=== PATIENT | male | born 1960 | race Caucasian/White ===

== ENCOUNTER 2020-07-14 07:08 | Outpatient (REF) | payer OTHER, SELFPAY ==
[2020-07-14 08:12] LABS: Estimated Average Glucose 123 mg/dL; Hemoglobin A1c % 5.9 %
[2020-07-14 08:17] LABS: Creatinine Urine 42.38 mg/dL; Microalbumin Urine < 5.0 mg/L
[2020-07-14 08:18] LABS: Alanine Aminotransferase 23 U/L (0-40); Albumin Level 4.5 g/dL (3.5-5.0); Alkaline Phosphatase 67 U/L (39-117); Anion Gap 16 (12-20); Aspartate Amino Transferase 21 U/L (5-37); Bilirubin Total 0.9 mg/dL (0.0-1.0); Blood Urea Nitrogen 15 mg/dL (9-16); Calcium 9.4 mg/dL (8.4-10.2); Carbon Dioxide 26 mmol/L (22-29); Chloride 101 mmol/L (96-108); Cholesterol 128 mg/dL; Estimated Glomerular Filt Rate > 60; Glucose Fasting 122 mg/dL (60-99); HDL Cholesterol 46 mg/dL; LDL Cholesterol Calculated 48 mg/dl; Potassium 4.1 mmol/l (3.3-5.1); Sodium 139 mmol/L (135-145); Total Protein 7.6 g/dL (6.5-8.0); Triglycerides 172 mg/dL
[2020-07-14 08:37] LABS: TSH reflex Free T4 1.74 mIU/mL (0.32-4.0)
== END 2020-07-14 07:09 | disposition home or self-care (01) ==
LOC: HO.LAB 07:08
PROVIDERS: PCP Family Medicine; Visit Provider Family Medicine
DX: Z00.00 Encounter for general adult medical examination without abnormal findings (principal); E11.9 Type 2 diabetes mellitus without complications; I10 Essential (primary) hypertension
CPT/HCPCS: 36415; 80053; 80061; 82043; 83036; 84443

== ENCOUNTER 2020-10-18 18:38 | Outpatient (REF) | payer OTHER, SELFPAY ==
[2020-10-18 19:07] LABS: Creatinine Urine 86.04 mg/dL; Microalbumin Urine < 5.0 mg/L
== END 2020-10-18 18:39 | disposition home or self-care (01) ==
LOC: HO.LNP 18:38
PROVIDERS: Visit Provider Family Medicine
DX: I10 Essential (primary) hypertension (principal); E11.9 Type 2 diabetes mellitus without complications
CPT/HCPCS: 82043

== ENCOUNTER 2021-05-20 07:43 | Outpatient (REF) | payer OTHER, SELFPAY ==
[2021-05-20 11:15] LABS: Estimated Average Glucose 114 mg/dL; Hemoglobin A1c % 5.6 %
[2021-05-20 11:41] LABS: Cholesterol 121 mg/dL; HDL Cholesterol 49 mg/dL; LDL Cholesterol Calculated 54 mg/dl; Triglycerides 90 mg/dL
[2021-05-20 12:03] LABS: Prostate Specific Antigen Scr 1.64 ng/mL (<0.05-4.0)
== END 2021-05-20 07:44 | disposition home or self-care (01) ==
LOC: HO.WFDLDS 07:43
PROVIDERS: Visit Provider Family Medicine
DX: Z00.00 Encounter for general adult medical examination without abnormal findings (principal); Z12.5 Encounter for screening for malignant neoplasm of prostate; R73.01 Impaired fasting glucose
CPT/HCPCS: 36415; 80061; 83036; 84153

== ENCOUNTER 2021-05-23 08:13 | Outpatient (REF) | payer OTHER, SELFPAY ==
[2021-05-23 12:11] LABS: Creatinine Urine 62.92 mg/dL; Microalbumin Urine < 5.0 mg/L
== END 2021-05-23 08:14 | disposition home or self-care (01) ==
LOC: HO.WFDLDS 08:13
PROVIDERS: Visit Provider Family Medicine
DX: I10 Essential (primary) hypertension (principal)
CPT/HCPCS: 82043

== ENCOUNTER 2021-11-05 07:44 | Outpatient (REF) | payer OTHER, SELFPAY ==
[2021-11-05 08:13] LABS: MANUAL DIFF FLAG NO
[2021-11-05 09:22] LABS: Appearance Urine CLEAR; Color Urine STRAW; Glucose Urine UA NEG (NEG); Leukocyte Esterase Urine NEG (NEG); Nitrite Urine NEG (NEG); PH 6.5 (5.0-8.0); Urine Blood NEG (NEG); Urine Ketones NEG (NEG); Urine Protein NEG (NEG-TRACE)
[2021-11-05 09:23] LABS: Basophils Percent Auto 0.5 % (0-2); Eosinophils Absolute Auto 0.2 X10*3/uL (0.0-0.4); Eosinophils Percent Auto 3.5 % (0-4); Hematocrit 41.3 % (42.0-52.0); Hemoglobin 14.4 g/dl (14.0-18.0); Imm Gran Abs Auto 0.02 X10*3/uL (0.00-0.03); Imm Gran Pct Auto 0.3 % (0.0-0.4); Lymphocytes Absolute Auto 2.1 X10*3/uL (1.2-4.9); Lymphocytes Percent Auto 32.2 % (20-40); Mean Corpuscular HGB Conc 34.9 g/dl (31.0-36.0); Mean Corpuscular Hemoglobin 30.7 pg (27.0-33.0); Mean Corpuscular Volume 88.1 fL (80.0-98.0); Mean Platelet Volume 11.4 fL (9.4-12.4); Monocytes Absolute Auto 0.8 X10*3/uL (0.1-1.2); Monocytes Percent Auto 12.5 % (2-11); Neutrophils Absolute Auto 3.4 x10*3/uL (2.0-8.3); Platelet Count 192 X10*3/uL (160-400); Red Blood Count 4.69 X10*6/uL (4.60-5.80); Red Cell Distribution Width 12.8 % (11.0-16.0); White Blood Count 6.6 X10*3/uL (4.8-10.8)
[2021-11-05 09:36] LABS: Alanine Aminotransferase 21 U/L (0-40); Albumin Level 4.3 g/dL (3.5-5.0); Alkaline Phosphatase 65 U/L (39-117); Anion Gap 14 (12-20); Aspartate Amino Transferase 21 U/L (5-37); Blood Urea Nitrogen 19 mg/dL (9-16); Calcium 9.6 mg/dL (8.4-10.2); Carbon Dioxide 24 mmol/L (22-29); Chloride 105 mmol/L (96-108); Cholesterol 115 mg/dL; Estimated Glomerular Filt Rate > 60; Glucose Fasting 114 mg/dL (60-99); HDL Cholesterol 45 mg/dL; LDL Cholesterol Calculated 58 mg/dl; Potassium 3.6 mmol/L (3.3-5.1); Sodium 139 mmol/L (135-145); Total Protein 7.2 g/dL (6.5-8.0); Triglycerides 64 mg/dL
[2021-11-05 09:42] LABS: Creatinine Urine 39.34 mg/dL; Microalbumin Urine < 5.0 mg/L
[2021-11-05 10:02] LABS: Prostate Specific Antigen Scr 1.32 ng/mL (<0.05-4.0); TSH reflex Free T4 2.11 uIU/mL (0.32-4.0)
== END 2021-11-05 07:45 | disposition home or self-care (01) ==
LOC: HO.LAB 07:44
PROVIDERS: PCP Family Medicine; Visit Provider Family Medicine
DX: Z00.00 Encounter for general adult medical examination without abnormal findings (principal); Z12.5 Encounter for screening for malignant neoplasm of prostate; I10 Essential (primary) hypertension
CPT/HCPCS: 36415; 80053; 80061; 81003; 82043; 84153; 84443; 85025

== ENCOUNTER 2022-01-28 07:47 | Emergency (ER) | payer OTHER, SELFPAY ==
--- NOTE | ~2022-01-28 | CT_ITS ---
EXAMINATION: CT BRAIN AND CT CERVICAL SPINE WITHOUT CONTRAST. CLINICAL INFORMATION: Status post fall. COMPARISON: None TECHNIQUE: 5 mm thin axial and reformatted 2 mm thin sagittal and coronal images of brain were obtained without contrast. Subsequently axial 3 mm thin and reformatted 2 mm thin sagittal and coronal images of cervical spine were obtained. [facility] 1526 FINDINGS: Brain: There is no acute infarct axial, extra-axial bleed, masses or midline shift. There is no acute infarction in evolution. The lateral ventricles are symmetrical in size and configuration. The [place] to white matter difference is maintained normal. There is anterior midline falx semilunar are calcification measuring 1.41 x 0.56 cm likely calcification or calcified meningioma. Bone windows reveal no calvarial abnormality. There is minimal left frontal scalp soft tissue swelling without calvarial fracture. Cervical spine: There is mild straightening straightening of cervical lordosis. The vertebral heights and alignment is normal. There is loss of C4-C5, C5-C6 and and C6-C7 disc heights with moderate ventral and mild posterior cervical spondylosis. The craniovertebral junction and the C1-C2 alignment is normal. There is bilateral facet joint arthropathy C3-C4 through C7-T1 disc levels. The prevertebral and paravertebral soft tissues are normal. The area is widely patent. The lung apices are clear. The thyroid lobes are symmetrical and normal. No abnormal size neck lymph nodes seen. CT/CT head/brain wo con IMPRESSION: No acute intracranial process seen. Minimal left frontal scalp soft tissue swelling but no calvarial fracture.
--- NOTE | ~2022-01-28 | XR_ITS ---
EXAMINATION: XR hand wrist LT CLINICAL INFORMATION: Reason for Exam bruising, deformity COMPARISON: Left wrist radiographs 11/22/2011, left hand radiographs 08/11/2007 TECHNIQUE: 3 views left hand FINDINGS: Comminuted minimally medially and dorsally displaced fracture at the base of the fifth proximal phalanx. No appreciable intra-articular extension at the MCP joint. No additional fracture or dislocation. At the wrist, there is abundant chondrocalcinosis and soft tissue swelling at the dorsal ulnar wrist along with widening of the scapholunate interval on cystic/erosive changes in the distal radius and capitate as well as radiocarpal joint space narrowing and proximal migration of the capitate compatible with a SLAC wrist. Wrist is held in ulnar deviation. Joint spaces throughout the hand are maintained. XR/XR hand wrist LT IMPRESSION: 1. Minimally displaced extra-articular fracture of the base of the fifth proximal phalanx. No other acute fracture. 2. 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
--- NOTE | ~2022-01-28 | XR_ITS ---
EXAMINATION: XR CHEST CLINICAL INFORMATION: Cough. COMPARISON: Chest done on 11/20/2014. TECHNIQUE: Frontal view of the chest was obtained. FINDINGS: No significant abnormality is noted involving the heart, lungs, mediastinum, bony thorax or soft tissues. XR/XR chest 1V IMPRESSION: Unremarkable examination.
--- NOTE | ~2022-01-28 | CT_ITS ---
EXAMINATION: CT BRAIN AND CT CERVICAL SPINE WITHOUT CONTRAST. CLINICAL INFORMATION: Status post fall. COMPARISON: None TECHNIQUE: 5 mm thin axial and reformatted 2 mm thin sagittal and coronal images of brain were obtained without contrast. Subsequently axial 3 mm thin and reformatted 2 mm thin sagittal and coronal images of cervical spine were obtained. [facility] 1526 FINDINGS: Brain: There is no acute infarct axial, extra-axial bleed, masses or midline shift. There is no acute infarction in evolution. The lateral ventricles are symmetrical in size and configuration. The bl[place] to white matter difference is maintained normal. There is anterior midline falx semilunar are calcification measuring 1.41 x 0.56 cm likely calcification or calcified meningioma. Bone windows reveal no calvarial abnormality. There is minimal left frontal scalp soft tissue swelling without calvarial fracture. Cervical spine: There is mild straightening straightening of cervical lordosis. The vertebral heights and alignment is normal. There is loss of C4-C5, C5-C6 and and C6-C7 disc heights with moderate ventral and mild posterior cervical spondylosis. The craniovertebral junction and the C1-C2 alignment is normal. There is bilateral facet joint arthropathy C3-C4 through C7-T1 disc levels. The prevertebral and paravertebral soft tissues are normal. The area is widely patent. The lung apices are clear. The thyroid lobes are symmetrical and normal. No abnormal size neck lymph nodes seen. CT/CT cervical spine wo con IMPRESSION: No acute intracranial process seen. Minimal left frontal scalp soft tissue swelling but no calvarial fracture.
--- NOTE | 2022-01-28 07:51 | ECG_ITS ---
Test Reason : FALL Blood Pressure : / mmHG Vent. Rate : 078 BPM Atrial Rate : 078 BPM P-R Int : 164 ms QRS Dur : 102 ms QT Int : 382 ms P-R-T Axes : 077 003 017 degrees QTc Int : 435 ms Normal sinus rhythm Normal ECG When compared with ECG of 20-NOV-2014 09:37, QRS axis Shifted left T wave inversion less evident in Inferior leads Referred By: Princess Mckeon Electronically Signed By:MAYTE DAY
[2022-01-28 08:09] VITALS: BP 135/70; BP 158/82; PULSE 85; PULSE 91; RESP 18; TEMP 36.9; O2SAT 96; O2SAT 99; BMI 28.8
--- NOTE | 2022-01-28 08:29 | ED.FALL ---
HPI - Fall General Chief Complaint: Fall Stated Complaint: Fall Time Seen by Provider: 01/28/22 07:50 Source: patient Mode of arrival: ambulatory History of Present Illness HPI Narrative: 62-year-old male who is brought in by EMS after he tripped on the curb and fell without loss of consciousness and is not currently on any blood thinners. Related Data Previous Rx's Medication Instructions Recorded FreeStyle Lancets 28 gauge 28 gauge topical TID #100 caps 08/26/20 (lancets) blood-glucose meter (FreeStyle #1 ea 02/10/21 Lite Meter kit) atenolol 50 mg tablet 50 mg PO DAILY #90 tabs 04/25/21 blood sugar diagnostic (FreeStyle See Rx Instructions .Route BID for 05/11/21 Lite Strips) diabetes mellitus #200 strips metformin 500 mg tablet,extended 500 mg PO DAILY #90 tabs 06/23/21 release 24 hr diphenhydramine HCl 25 mg tablet 25 mg PO BEDTIME 3 days #3 tabs 12/01/21 (Benadryl Allergy) furosemide 20 mg tablet (Lasix) 20 mg PO QAM 3 days #3 tabs 12/01/21 hydrochlorothiazide 50 mg tablet 50 mg PO DAILY #90 tabs 12/14/21 ibuprofen 800 mg tablet 800 mg PO TID PRN pain 30 days #90 12/19/21 tabs atorvastatin 10 mg tablet 10 mg PO DAILY #90 tabs 12/28/21 valsartan 160 mg tablet 160 mg PO DAILY #90 tabs 12/28/21 Allergies Allergy/AdvReac Type Severity Reaction Status Date / Time No Known Allergies Allergy Verified 11/18/21 14:57 [No Known Allergies*] Review of Systems Review of Systems: Pertinent positives and negatives as stated in HPI 10 point review of systems is otherwise negative. [facility]LY [facility], [facility] Past Medical History Source: nursing notes reviewed Medical History Moderate intellectual disabilities Surgical History History of tooth extraction Family History Family History Father HTN (hypertension) Hyperlipidemia Lymphoma Mother HTN (hypertension) Cancer Brother No problems noted. Brother No problems noted. Brother No problems noted. Brother No problems noted. Brother No problems noted. Sister No problems noted. Sister No problems noted. Social History Social History Housing: House Alcohol intake: never Patient Tobacco Use Status: Never used Tobacco e-Cigarette/Vaping Use: Never Used Second Hand Smoke Exposure: No Advance Directives: Yes Advance Directives Information Provided: Yes Advance Directives on File: No service: No Current occupational status: disabled Current occupational exposures/hazards: No Physical Exam Vital Signs: Vital Signs: Last Vital Signs Temp 98.4 F 01/28/22 08:09 Pulse 83 01/28/22 11:36 Resp 16 01/28/22 11:36 BP 145/72 H 01/28/22 11:36 Pulse Ox 95 01/28/22 11:36 O2 Del Method 01/28/22 11:36 BMI result Body Mass Index 28.8 VITAL SIGNS: Reviewed. GENERAL: Well developed, well nourished, in no acute distress. HEAD: Normocephalic/ 3 cm linear laceration that is hemostatic to the left forehead EYES: PERRLA, EOMI EARS: Ext canals without abnormality OROPHARYNX: no oral lesions noted, posterior pharynx clear LUNGS: Normal breath sounds. No adventitious sounds or accessory muscle use. SpO2<95> CARDIOVASCULAR: Regular rate and rhythm without noted murmurs, no JVD or lower extremity edema. ABDOMEN: Soft, non-tender, non-distended with bowel sounds. MUSCULOSKELETAL: No tenderness, deformities, or effusions noted on gross inspection. EXTREMITIES: No cyanosis, clubbing or edema. SKIN: Inspection of the skin reveals no rashes NEUROLOGIC: Alert and oriented x 4. Strength and sensation to light touch were grossly intact x 4. Course Course Course Narrative: 62-year-old male with history and clinical presentation consistent with mechanical fall and on review of all investigations there are no acute findings to suggest alternate etiologies. Review of imaging is negative for intracranial or cervical pathology. Patient tolerated repair of the laceration to the left forehead with dissolvable suture material. Procedures Laceration Laceration 1: Site: scalp Side (If applicable): left Size (cm): 3 Description: linear Depth: simple, single layer Local Anesthetic: lidocaine 1% Amount of anesthesia used (mL): 2 Pre-repair: wound explored, irrigated extensively and deep structures intact Skin layer closed with: vicryl ( Dissolve ) Size (cm): 5-0 Number of sutures: 5 Technique: simple, interrupted MDM - Fall Lab Data Result diagrams: 01/28/22 09:20 01/28/22 09:20 Labs: Lab Results 01/28/22 01/28/22 01/28/22 Range/Units 09:20 09:20 11:40 WBC 11.0 H (4.8-10.8) X10*3/uL RBC 4.67 (4.60-5.80) X10*6/uL Hgb 14.7 (14.0-18.0) g/dl Hct 40.8 L (42.0-52.0) % MCV 87.4 (80.0-98.0) fL MCH 31.5 (27.0-33.0) pg MCHC 36.0 (31.0-36.0) g/dl RDW 12.8 (11.0-16.0) % Plt Count 164 (160-400) X10*3/uL MPV 10.8 (9.4-12.4) fL Immature Gran % (Auto) 0.5 H (0.0-0.4) % Neut % (Auto) 83.4 H (45-73) % Lymph % (Auto) 8.6 L (20-40) % [place] % (Auto) 6.7 (2-11) % Eos % (Auto) 0.5 (0-4) % Baso % (Auto) 0.3 (0-2) % Lymph # (Auto) 0.9 L (1.2-4.9) X10*3/uL [place] # (Auto) 0.7 (0.1-1.2) X10*3/uL Eos # (Auto) 0.1 (0.0-0.4) X10*3/uL Baso # (Auto) 0.0 (0.0-0.2) X10*3/uL Abs Immat Gran (auto) 0.05 H (0.00-0.03) X10*3/uL Absolute Neuts (auto) 9.2 H (2.0-8.3) x10*3/uL Absolute Nucleated RBC 0.000 (0.0-0.012) X10*3/uL Nucleated RBC % (auto) 0.0 (0.0-0.2) /100WBC Sodium 140 (135-145) mmol/L Potassium 3.5 (3.3-5.1) mmol/L Chloride 105 (96-108) mmol/L Carbon Dioxide 21 L (22-29) mmol/L Anion Gap 18 (12-20) BUN 25 H (9-16) mg/dL Creatinine 1.00 (0.5-1.4) mg/dL Estim Creat Clear Calc 101.4 Estimated GFR > 60 Random Glucose 124 H (60-115) mg/dL Calcium 9.6 (8.4-10.2) mg/dL Total Bilirubin 0.7 (0.0-1.0) mg/dL AST 26 (5-37) U/L ALT 23 (0-40) U/L Alkaline Phosphatase 66 (39-117) U/L Total Protein 7.6 (6.5-8.0) g/dL Albumin 4.6 (3.5-5.0) g/dL Urine Color YELLOW Urine Appearance HAZY Urine pH 6.5 (5.0-8.0) Ur Specific [place] 1.010 (1.005-1.025) Urine Protein NEG (NEG-TRACE) MG/DL Urine Glucose (UA) NEG (NEG) MG/DL Urine Ketones NEG (NEG) MG/DL Urine Blood NEG (NEG) Urine Nitrite NEG (NEG) Ur Leukocyte Esterase NEG (NEG) ECG Data Attestation: I personally reviewed and interpreted this ECG as follows: Prior ECG tracings: available for review Interpretation: NSR, HR-78, no STEMI, MO /QRS /QTC are within normal limits. Discharge Plan Discharge Clinical Impression: Accident due to mechanical fall without injury, Laceration of scalp Patient Disposition: Home, Self-Care Instructions: Laceration (ED), Fall Prevention for Older Adults (ED) Additional Instructions: you may cleanse the wounds with soap and water and keep dry. Apply antibiotic ointment as well. You do not need to return for removal of your stitches as they will dissolve with time. Follow-up with your primary care provider in 1-2 days. Return to the ER for worsening symptoms. Prescriptions: No Action lancets [FreeStyle Lancets] 28 gauge misc 28 gauge topical TID Qty: 100 2RF atenolol 50 mg tablet 50 mg PO DAILY Qty: 90 3RF FreeStyle Lite Strips Strip See Rx Instructions .ROUTE BID Qty: 200 6RF Rx Instructions: glucose monitoring 2 times a day; metformin 500 mg tablet extended release 24 hr 500 mg PO DAILY Qty: 90 3RF hydrochlorothiazide 50 mg tablet 50 mg PO DAILY Qty: 90 1RF ibuprofen 800 mg tablet 800 mg PO TID PRN (Reason: pain) 30 Days Qty: 90 2RF atorvastatin 10 mg tablet 10 mg PO DAILY Qty: 90 0RF valsartan 160 mg tablet 160 mg PO DAILY Qty: 90 0RF (DME) blood-glucose meter [FreeStyle Lite Meter] Kit See Rx Instructions .ROUTE .MEDSUPPLY Qty: 1 0RF Rx Instructions: DX: E11.9, test blood sugar 2 times a day, duration 999 days furosemide [Lasix] 20 mg tablet 20 mg PO QAM 3 Days Qty: 3 0RF diphenhydramine HCl [Benadryl Allergy] 25 mg tablet 25 mg PO BEDTIME 3 Days Qty: 3 0RF Referrals: Jordi Crandall MD [Primary Care Provider] -
[2022-01-28] MEDS: Diphth,Pertus(ACell),Tet Adult 0.5 ML SYRINGE IM (09:10)
[2022-01-28 09:36] LABS: MANUAL DIFF FLAG NO
[2022-01-28 09:40] LABS: Basophils Percent Auto 0.3 % (0-2); Eosinophils Absolute Auto 0.1 X10*3/uL (0.0-0.4); Eosinophils Percent Auto 0.5 % (0-4); Hematocrit 40.8 % (42.0-52.0); Hemoglobin 14.7 g/dl (14.0-18.0); Imm Gran Abs Auto 0.05 X10*3/uL (0.00-0.03); Imm Gran Pct Auto 0.5 % (0.0-0.4); Lymphocytes Absolute Auto 0.9 X10*3/uL (1.2-4.9); Lymphocytes Percent Auto 8.6 % (20-40); Mean Corpuscular Hemoglobin 31.5 pg (27.0-33.0); Mean Corpuscular Volume 87.4 fL (80.0-98.0); Mean Platelet Volume 10.8 fL (9.4-12.4); Monocytes Absolute Auto 0.7 X10*3/uL (0.1-1.2); Monocytes Percent Auto 6.7 % (2-11); Neutrophils Absolute Auto 9.2 x10*3/uL (2.0-8.3); Neutrophils Percent Auto 83.4 % (45-73); Platelet Count 164 X10*3/uL (160-400); Red Blood Count 4.67 X10*6/uL (4.60-5.80); Red Cell Distribution Width 12.8 % (11.0-16.0)
[2022-01-28 10:08] LABS: Alanine Aminotransferase 23 U/L (0-40); Albumin Level 4.6 g/dL (3.5-5.0); Alkaline Phosphatase 66 U/L (39-117); Anion Gap 18 (12-20); Aspartate Amino Transferase 26 U/L (5-37); Bilirubin Total 0.7 mg/dL (0.0-1.0); Blood Urea Nitrogen 25 mg/dL (9-16); Calcium 9.6 mg/dL (8.4-10.2); Carbon Dioxide 21 mmol/L (22-29); Chloride 105 mmol/L (96-108); Creatinine Clr Calc Pharmacy 101.4; Estimated Glomerular Filt Rate > 60; Glucose Random 124 mg/dL (60-115); Potassium 3.5 mmol/L (3.3-5.1); Sodium 140 mmol/L (135-145); Total Protein 7.6 g/dL (6.5-8.0)
[2022-01-28] MEDS: Lidocaine HCl 1 % MPF 5 ML VIAL SUBCUT (11:22)
[2022-01-28 11:36] VITALS: BP 145/72; PULSE 83; RESP 16; O2SAT 95
[2022-01-28 11:53] LABS: Appearance Urine HAZY; Color Urine YELLOW; Glucose Urine UA NEG (NEG); Leukocyte Esterase Urine NEG (NEG); Nitrite Urine NEG (NEG); PH 6.5 (5.0-8.0); Urine Blood NEG (NEG); Urine Ketones NEG (NEG); Urine Protein NEG (NEG-TRACE)
== END 2022-01-28 16:29 | disposition home or self-care (01) ==
PROVIDERS: Emergency Provider Student in an Organized Health Care Education/Training Program; PCP Family Medicine
DX: S62.317A Displaced fracture of base of fifth metacarpal bone, left hand, initial encounter for closed fracture (principal); S01.81XA Laceration without foreign body of other part of head, initial encounter; W10.1XXA Fall (on)(from) sidewalk curb, initial encounter; Y93.01 Activity, walking, marching and hiking; Y92.480 Sidewalk as the place of occurrence of the external cause; Y99.9 Unspecified external cause status; Z79.02 Long term (current) use of antithrombotics/antiplatelets; Z79.84 Long term (current) use of oral hypoglycemic drugs
CPT/HCPCS: 12013; 29125; 36415; 70450; 71045; 72125; 73110; 73130; 80053; 81003; 85025; 90471; 90715; 93005; 99284; 99285

== ENCOUNTER → 2022-02-01 14:16 | Outpatient (BNVA) | payer OTHER, SELFPAY | PROVIDERS: PCP Family Medicine; Visit Provider Physician Assistant | DX: S62.307A Unspecified fracture of fifth metacarpal bone, left hand, initial encounter for closed fracture (principal); S69.92XA Unspecified injury of left wrist, hand and finger(s), initial encounter; W18.30XA Fall on same level, unspecified, initial encounter; Y93.9 Activity, unspecified; Y92.9 Unspecified place or not applicable; Y99.9 Unspecified external cause status | CPT/HCPCS: 29085; 99202 ==

== ENCOUNTER 2022-02-15 13:51 | Outpatient (REF) | payer OTHER, SELFPAY ==
--- NOTE | ~2022-02-15 | XR_ITS ---
EXAMINATION: XR HAND, LEFT CLINICAL INFORMATION: Left hand pain. COMPARISON: 01/28/2022 and 11/22/2011. TECHNIQUE: PA, and oblique views of the left hand. Lateral view was not performed and is not available for review. FINDINGS: There is no significant change in alignment of fracture base of the 5th proximal phalanx. There appears to be minimal periosteal new bone formation with fracture lines still evident. No dislocation is seen. There is mild lateral and dorsal angulation of the major distal fracture fragment. The interphalangeal and metacarpophalangeal joints are maintained. There appears to be an old healed ulnar styloid fracture with some positive ulnar variance. There is soft tissue swelling seen adjacent to the medial aspect of the wrist and ulnar styloid. There is again noted to be a cyst or erosion involving the distal radius. Chondrocalcinosis is noted about the distal radius and ulna including the triangular fibrocartilage. There is a question of cyst or erosion about the radial aspect of the capitate. There is some narrowing and spurring of the triscaphe joint. There is widening of the scapholunate space indicative of ligamentous injury. XR/XR hand LT min 3V IMPRESSION: Healing fracture involving the base of the left 5th proximal phalanx without change in alignment from previous study. Chondrocalcinosis about the wrist. Probable old healed left ulnar styloid fracture with some adjacent soft tissue swelling. Probable mild acquired positive ulnar variance. Erosive changes or cystic changes involving the carpal bones which could be related to erosive arthritides or posttraumatic change. No significant change compared to study of 01/28/2022.
== END 2022-02-15 13:52 | disposition home or self-care (01) ==
LOC: HO.HOSX 13:51
PROVIDERS: Visit Provider Physician Assistant
DX: M79.642 Pain in left hand (principal)
CPT/HCPCS: 73130

== ENCOUNTER 2022-03-24 13:03 | Outpatient (REF) | payer OTHER, SELFPAY ==
--- NOTE | ~2022-03-24 | XR_ITS ---
EXAMINATION: XR HAND, LEFT CLINICAL INFORMATION: Left hand pain. COMPARISON: Most recent left hand radiographs dated 02/15/2022. TECHNIQUE: PA, lateral, and oblique views of the left hand. FINDINGS: Redemonstration of a mildly displaced fracture through the base of the 5th proximal phalanx in unchanged anatomic alignment. Mild interval increase in new bone/callus formation. No new fracture or dislocation. Widening of the scapholunate ligament with proximal migration of the capitate appears unchanged, consistent with SLAC wrist. Radiocarpal joint space narrowing with subchondral cystic change. Radiocarpal chondrocalcinosis. Joint space narrowing with marginal osteophytes at the triscaphe and 1st carpometacarpal joints. XR/XR hand LT min 3V IMPRESSION: 1. Fifth proximal phalangeal fracture in unchanged anatomic alignment with mild new bone/callus formation. 2. Scapholunate joint space widening with proximal migration of the capitate appears unchanged, consistent with SLAC wrist. Associated osteoarthritis at the radiocarpal, triscaphe, and 1st carpometacarpal joints.
== END 2022-03-24 13:04 | disposition home or self-care (01) ==
LOC: HO.HOSX 13:03
PROVIDERS: Visit Provider Physician Assistant
DX: M79.642 Pain in left hand (principal)
CPT/HCPCS: 73130

== ENCOUNTER 2022-05-05 07:54 | Outpatient (REF) | payer OTHER, SELFPAY ==
--- NOTE | ~2022-05-05 | XR_ITS ---
EXAMINATION: XR HAND, LEFT CLINICAL INFORMATION: Left hand pain. COMPARISON: 03/24/2022 and studies dating back to 01/28/2022. TECHNIQUE: PA, lateral, and oblique views of the left hand. FINDINGS: There appears to be some progression in healing of fracture of the base of the left 5th proximal phalanx with the ulnar aspect of the fracture lines not being evident and may be related to some degree of bony union. The radial aspect of the fracture is still visualized without significant callus formation. No acute fracture is identified. There is degenerative spurring with some subchondral cyst formation seen involving the 5th distal interphalangeal joint. There is mild spurring about the 1st carpometacarpal joint. There is degenerative change of the radiocarpal joint with narrowing of the joint space with the scaphoid with some marginal sclerosis and subchondral cyst formation identified. There is also noted to be some soft tissue swelling with calcification about the dorsum of the wrist and ulnar styloid with chondrocalcinosis. There is widening of the scapholunate space consistent with ligamentous injury. There appears to be some proximal migration of the capitate without change. Above finding is consistent with SLAC. XR/XR hand LT min 3V IMPRESSION: Healing fracture base of the 5th proximal phalanx. Other degenerative findings as described above.
== END 2022-05-05 07:55 | disposition home or self-care (01) ==
LOC: HO.HOSX 07:54
PROVIDERS: Visit Provider Physician Assistant
DX: S62.307A Unspecified fracture of fifth metacarpal bone, left hand, initial encounter for closed fracture (principal)
CPT/HCPCS: 73130; 99212

== ENCOUNTER 2023-02-19 08:24 | Outpatient (AMB) | payer OTHER, SELFPAY ==
--- NOTE | 2023-02-19 08:28 | MHC.PC.OV ---
Vital Signs 02/19/23 08:33 Height 6 ft 3 in Weight 232 lb 8 oz BMI 29.1 BP 122/63 Blood Pressure Location Rt brachial Position Sitting Pulse 59 Pulse Source Pulse Oximeter Pulse Oximetry (%) 97 Intake Visit Reasons: f/u diabetes and hypertension Intake Note: Patient is here to follow up on idabetes and hypertension. Allergies No Known Allergies [No Known Allergies*] Allergy (Verified 11/24/22 08:42) Tobacco use date assessed: 02/19/23 Dental Screening Dental Screen Date: 02/19/23 Did you have a dental visit in the last 12 months?: No Did you have a dental problem in the last 6 months where you did not have access to dental care?: No Was dental information given to patient?: Patient declined HPI f/u diabetes and hypertension HPI Details 63 y/o male presents to f/u diabetes and hypertension. Blood pressure today is 122/63. He is on hydrochlorothiazide 50mg, atenolol 50mg and valsartan 160mg daily. Last A1c 11/24/22 6.0%. A1c today 02/19/23 is 5.8%. He is on metformin 500mg daily. They report they had a cologuard test just last year. They report he sees his eye doctor once a year. FORMERLY [facility] Medical History Moderate intellectual disabilities Surgical History History of tooth extraction Family History Father HTN (hypertension) Hyperlipidemia Lymphoma Mother HTN (hypertension) Cancer Brother No problems noted. Brother No problems noted. Brother No problems noted. Brother No problems noted. Brother No problems noted. Sister No problems noted. Sister No problems noted. Social History Housing: House Alcohol intake: never Patient Tobacco Use Status: Never used Tobacco e-Cigarette/Vaping Use: Never Used Second Hand Smoke Exposure: No service: No Current occupational status: disabled Current occupational exposures/hazards: No Questionnaire Thrive Questionnaire Date Thrive assessed: 05/05/22 SARAI-7 AMB Questionnaire SARAI-7 Date SARAI - 7 assessed: 11/04/21 Source: Developed by Drs. Aniket Liu, Lay Owens, Wilfrido Garza and colleagues, with an educational martín from [employer]. Review of Systems Const Denies chills, Denies fatigue, Denies fever(s), Denies headache(s) and Denies weakness ENT Denies dizziness and Denies headache(s) Card Denies chest pain, Denies lightheadedness, Denies dyspnea and Denies other (Palpitations) Resp Denies cough, Denies dyspnea, Denies wheezing and Denies other ( shortness of breath) Musc Denies numbness and Denies tingling Neuro Denies dizziness, Denies headache(s), Denies numbness, Denies tingling, Denies paresthesias and Denies weakness Psych Denies anxiety and Denies depression Endo Denies fatigue Aller/Immun Denies wheezing Physical exam (Primary Care) Vital Signs: Last Vital Signs Pulse 59 02/19/23 08:33 BP 122/63 02/19/23 08:33 Pulse Ox 97 02/19/23 08:33 BMI result Body Mass Index 29.1 Tobacco/Smoking Status: Tobacco use Status Tobacco use date assessed 02/19/23 02/19/23 08:42 Patient Tobacco Use Status Never used Tobacco 02/19/23 08:28 e-Cigarette/Vaping Use Never Used 02/19/23 08:28 Thrive Assessment: Date of Thrive Assessment Date Thrive assessed 05/05/22 02/19/23 08:28 Const General: no acute distress and well developed Nutritional Appearance: well nourished Orientation/consciousness: [facility]: Yes normocephalic and Yes atraumatic Eyes General: appearance normal, both eyes and all related structures Pupils: Equal, round and reactive pupils present EOM: EOMs intact bilaterally Resp Effort & Inspection: normal respiratory effort Auscultation: clear to auscultation bilaterally Cardio Rate: regular rate Rhythm: regular rhythm Heart sounds: S1 normal heart sound present, S2 normal heart sound present, no gallops, no murmurs and no rubs Neuro General: patient oriented x3 and gait normal Cranial nerves: Yes Equal, round and reactive pupils present Psych Affect: normal affect Results AMB Hemoglobin A1c AMB Hemoglobin A1c 5.8 % Last Edit by Marian Leger YANA on 02/19/23 08:45 AMB Urinalysis Dipstick UR Leukocytes Negative Last Edit by Marian Leger CMA on 02/19/23 09:04 UR Nitrite Negative Last Edit by Marian Leger, YANA on 02/19/23 09:04 UR Urobilinogen Normal Last Edit by Marian Leger, YANA on 02/19/23 09:04 UR Protein Negative Last Edit by Marian Leger, YANA on 02/19/23 09:04 UR Ph 6.5 Last Edit by Marian Leger, YANA on 02/19/23 09:04 UR Blood Negative Last Edit by Marian Leger, YANA on 02/19/23 09:04 UR Specific [place] 1.015 Last Edit by Marian Leger, YANA on 02/19/23 09:04 UR Ketone Negative Last Edit by Marian Leger, YANA on 02/19/23 09:04 UR Bilirubin Negative Last Edit by Marian Leger CMA on 02/19/23 09:04 UR Glucose Negative Last Edit by Marian Leger, YANA on 02/19/23 09:04 Results Reviewed Results Reviewed: Laboratory Last Values Hgb A1c (Clinic) 5.8 % (4.0-6.0) 02/19/23 08:45 Urine pH (Clinic) 6.5 02/19/23 09:02 Specific [place] (Clinic) 1.015 02/19/23 09:02 Ur Protein (Clinic) Negative 02/19/23 09:02 Ur Ketones (Clinic) Negative 02/19/23 09:02 Urine Blood (Clinic) Negative 02/19/23 09:02 Urine Nitrite Negative 02/19/23 09:02 Urine Bilirubin (Clinic) Negative 02/19/23 09:02 Urobilinogen (Clinic) Normal 02/19/23 09:02 Leukocyte Esterase (Clinic) Negative 02/19/23 09:02 Urine Glucose (Clinic) Negative 02/19/23 09:02 Assessment and Plan Assessment & Plan (1) Diabetes type 2, controlled: Code(s): E11.9 - Type 2 diabetes mellitus without complications Plan: A1c 5.8%. Goal is < 7.0%. 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 (2) Essential (primary) hypertension: Code(s): I10 - Essential (primary) hypertension Plan: Blood pressure is well controlled. Goal is less than 140/90 Continue current medications Orders: Orders AMB Hemoglobin A1c Today Z13.9 - Encounter for screening, unspecified Urine Dipstick Today E11.9 - Type 2 diabetes mellitus without complications AMB Urinalysis Dipstick Today Z13.9 - Encounter for screening, unspecified Coding Level of Care Code Est Pt Level 3 (18463) Diagnoses Diabetes type 2, controlled E11.9 Essential (primary) hypertension I10
[2023-02-19 08:33] VITALS: BP 122/63; PULSE 59; O2SAT 97; BMI 29.1
== END 2023-02-19 09:07 | disposition home or self-care (01) ==
PROVIDERS: Visit Provider Family Medicine
DX: E11.9 Type 2 diabetes mellitus without complications (principal); I10 Essential (primary) hypertension
CPT/HCPCS: 81002; 83036; 99213

== ENCOUNTER 2023-05-14 07:52 | Outpatient (REF) | payer OTHER, SELFPAY ==
[2023-05-14 10:06] LABS: Alanine Aminotransferase 30 U/L (0-40); Albumin Level 4.5 g/dL (3.5-5.0); Alkaline Phosphatase 61 U/L (39-117); Anion Gap 15 (12-20); Aspartate Amino Transferase 26 U/L (5-37); Bilirubin Total 0.6 mg/dL (0.0-1.0); Blood Urea Nitrogen 18 mg/dL (9-16); Calcium 9.8 mg/dL (8.4-10.2); Carbon Dioxide 24 mmol/L (22-29); Chloride 103 mmol/L (96-108); Cholesterol 125 mg/dL (<200); Estimated Glomerular Filt Rate > 60; Glucose Fasting 113 mg/dL (60-99); HDL Cholesterol 51 mg/dL (>40); LDL Cholesterol Calculated 54 mg/dL (<100); Potassium 3.8 mmol/L (3.3-5.1); Sodium 138 mmol/L (135-145); Total Protein 7.9 g/dL (6.5-8.0); Triglycerides 102 mg/dL (<150)
[2023-05-14 10:08] LABS: TSH reflex Free T4 1.11 uIU/mL (0.32-4.0)
== END 2023-05-14 07:53 | disposition home or self-care (01) ==
LOC: HO.LAB 07:52
PROVIDERS: PCP Family Medicine; Visit Provider Family Medicine
DX: Z00.00 Encounter for general adult medical examination without abnormal findings (principal); Z12.5 Encounter for screening for malignant neoplasm of prostate
CPT/HCPCS: 36415; 80053; 80061; 84153; 84443

== ENCOUNTER 2023-05-15 12:14 | Outpatient (REF) | payer OTHER, SELFPAY ==
[2023-05-15 12:25] LABS: Appearance Urine Clear; Color Urine Yellow; Glucose Urine UA Negative (Negative); Leukocyte Esterase Urine Negative (Negative); Nitrite Urine Negative (Negative); PH 6.5 (5.0-9.0); Specific Gravity - Urine 1.015 (1.005-1.025); Urine Blood Negative (Negative); Urine Ketones Negative (Negative); Urine Protein Negative (Neg-Trace)
[2023-05-15 13:00] LABS: Microalbumin Urine < 5.0 mg/L
== END 2023-05-15 12:15 | disposition home or self-care (01) ==
LOC: HO.LNP 12:14
PROVIDERS: Visit Provider Family Medicine
DX: Z00.00 Encounter for general adult medical examination without abnormal findings (principal); I10 Essential (primary) hypertension
CPT/HCPCS: 81003; 82570

== ENCOUNTER 2023-06-01 08:33 | Outpatient (AMB) | payer OTHER, SELFPAY ==
--- NOTE | 2023-06-01 08:40 | MHC.PC.OV ---
Vital Signs 06/01/23 08:43 Height 6 ft 3 in Weight 228 lb 6 oz BMI 28.5 BP 130/68 Blood Pressure Location Rt brachial Position Sitting Respiration 13 Pulse 62 Pulse Source Pulse Oximeter Pulse Oximetry (%) 97 Oxygen Delivery Method Room Air Intake Visit Reasons: Extended exam with f/u labs and health maint. Intake Note: Patient is here for a physical and accompanied by his sister. Patient is here to follow up for T2DM and HTN for chronic conditions. Patient's last labs were obtained on 05/14/23 & 05/15/23. Patient's sister is requesting a urine cup to take home for patient to obtain a sample for his routine U/A. Patient wanted to inform the doctor he tripped and fell and has a scrape on his knee. 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 Accompanied by: Sister Allergies No Known Allergies [No Known Allergies*] Allergy (Verified 06/01/23 08:51) Medication List - Last Reconciled 06/01/23 by Jordi Crandall MD atenolol 50 mg PO DAILY atorvastatin 10 mg PO DAILY blood sugar diagnostic (FreeStyle Lite Strips) glucose monitoring 2 times a day; blood-glucose meter (FreeStyle Lite Meter kit) DX: E11.9, test blood sugar 2 times a day, duration 999 days cane Quad-Cane daily As directed, 999 days/Lifetime diphenhydramine HCl (Benadryl Allergy) 25 mg PO BEDTIME 3 days FreeStyle Lancets (lancets) 28 gauge topical TID NS furosemide (Lasix) 20 mg PO QAM 3 days hydrochlorothiazide 50 mg PO DAILY ibuprofen 800 mg PO TID PRN 30 days metformin ER 500 mg PO DAILY valsartan 160 mg PO DAILY Tobacco use date assessed: 06/01/23 Dental Screening Dental Screen Date: 06/01/23 Did you have a dental visit in the last 12 months?: No Did you have a dental problem in the last 6 months where you did not have access to dental care?: No Was dental information given to patient?: Yes HPI Extended exam with f/u labs and health maint. HPI Details 63 y/o male presents for a CPE with f/u labs and health maintenance. Labs were drawn 05/14/23. Reviewed labs with pt. Elevated fasting glucose of 113. Triglycerides 102. TC 125. LDL 54. HDL 51. A1c 06/01/23 5.8%. He is on metformin 500mg daily. Blood pressure today 130/68. He is on valsartan 160mg, atenolol 50mg and hydrochlorothiazide 50mg daily. Pt reports a fall and has scraped his knee. Pt reports they had a cologuard test a couple years ago. [facility] Medical History Moderate intellectual disabilities Surgical History History of tooth extraction Family History Father HTN (hypertension) Hyperlipidemia Lymphoma Mother HTN (hypertension) Cancer Brother No problems noted. Brother No problems noted. Brother No problems noted. Brother No problems noted. Brother No problems noted. Sister No problems noted. Sister No problems noted. Social History (Updated 06/01/23 @ 08:54 by Sonia Marcelo [facility]) Household Members: Family Household Members Other:: Brother, Marcus Housing: House Alcohol intake: never Patient Tobacco Use Status: Never used Tobacco e-Cigarette/Vaping Use: Never Used Second Hand Smoke Exposure: No service: No Current occupational status: disabled Current occupational exposures/hazards: No Sexual orientation: Unable to collect Gender identity: Unable to collect Cognitive needs: Yes Hearing needs: No Vision needs: No Questionnaire PHQ-9 Over the last 2 weeks, how often have you been bothered by any of the following problems? 1. Little interest or pleasure in doing things: not at all 2. Feeling down, depressed, or hopeless: not at all 3. Trouble falling or staying asleep, or sleeping too much: not at all 4. Feeling tired or having little energy: not at all 5. Poor appetite or overeating: not at all 6. Feeling bad about yourself - or that you are a failure or have let yourself or your family down: not at all 7. Trouble concentrating on things, such as reading the newspaper or watching television: not at all 8. Moving or speaking so slowly that other people could have noticed. Or the opposite - being so fidgety or restless that you have been moving around a lot more than usual: not at all 9. Thoughts that you would be better off or of hurting yourself in some way: not at all Total score: 0 Depression Screening Interpretation: Negative Depression Screening Done: Yes 12797 - PHQ-9 Billing: Yes Source: Developed by Drs. Aniket Liu, Lay Owens, Wilfrido Garza and colleagues, with an educational martín from [employer]. Thrive Questionnaire Date Thrive assessed: 06/01/23 I am a: Patient What is your living situation today?: I have a steady place to live Within the past 12 months, did the food you bought not last and you didn't have the money to get more?: Never true Within the past 12 months, did you worry whether your food would run out before you got money to buy more?: Never true Do you have trouble paying for medicines?: No Do you have trouble getting transportation to medical appointments?: No Do you have trouble paying your heating and electricity bill?: No Do you have trouble taking care of your child, family member or friend?: No Do you have trouble with day-to-day activities such as bathing, preparing meals, shopping, managing finances, etc.?: No Are you currently unemployed and looking for a job?: No Are you interested in more education?: No Please select the resources that you would like help with: None Currently or been in a relationship where the following occur: no concerns reported AUDIT C Alcohol Use Questionnaire (AUDIT-C) 1. How often do you have a drink containing alcohol?: Never 3. How often do you have six or more drinks on one occasion?: Never Total Score: 0 Score Reviewed/Action Taken: Yes (Not needed) SARAI-7 AMB Questionnaire SARAI-7 Date SARAI - 7 assessed: 06/01/23 Feeling nervous, anxious, or on edge: 0 = Not at all Not being able to stop or control worryin = Not at all Worrying too much about different things: 0 = Not at all Trouble relaxin = Not at all Being so restless that it is hard to sit still: 0 = Not at all Becoming easily annoyed or irritable: 0 = Not at all Feeling afraid as if something awful might happen: 0 = Not at all Total SARAI-7 score (0-4 normal; 5-9 mild; 10-14 moderate; 15-21 severe): 0 Source: Developed by Drs. Aniket Liu, Lay Owens, Wilfrido Garza and colleagues, with an educational martín from [employer]. SARAI-7 Assessment Billing SARAI-7 Assessment Tool: SARAI-7 Assessment 65814 Physical exam (Primary Care) Vital Signs: Last Vital Signs Pulse 62 06/01/23 08:43 Resp 13 06/01/23 08:43 BP 130/68 06/01/23 08:43 Pulse Ox 97 06/01/23 08:43 Oxygen Delivery Method Room Air 06/01/23 08:43 BMI result Body Mass Index 28.5 Tobacco/Smoking Status: Tobacco use Status Tobacco use date assessed 06/01/23 06/01/23 08:52 Patient Tobacco Use Status Never used Tobacco 06/01/23 08:54 e-Cigarette/Vaping Use Never Used 06/01/23 08:54 PHQ-9: PHQ-9 Score PHQ-9: Total score 0 06/01/23 09:02 Depression Screening Interpretation: Negative Thrive Assessment: Date of Thrive Assessment Date Thrive assessed 06/01/23 06/01/23 08:55 Currently or been in a relationship where the following occur: no concerns reported Results AMB Hemoglobin A1c AMB Hemoglobin A1c 5.8 % Last Edit by Sonia Marcelo CMA on 06/01/23 09:04 Results Reviewed Results Reviewed: Laboratory Last Values Hgb A1c (Clinic) 5.8 % (4.0-6.0) 06/01/23 09:03 Assessment and Plan Assessment & Plan (1) Essential (primary) hypertension: Code(s): I10 - Essential (primary) hypertension Plan: Blood?pressure?is?controlled.??Goal?is?less?than?140/90 Continue?current?medication?regimen (2) Diabetes type 2, controlled: Code(s): E11.9 - Type 2 diabetes mellitus without complications Plan: A1c?5.8%.??Goal?is?less?than?7.0% Continue?current?medication?regimen (3) Screening for prostate cancer: Code(s): Z12.5 - Encounter for screening for malignant neoplasm of prostate Plan: PSA?within?normal?limits (4) Screening for malignant neoplasm of colon: Code(s): Z12.11 - Encounter for screening for malignant neoplasm of colon Plan: Cologuard?in?2020?was?negative. Will?check?again?in?2023 (5) Status post fall: Code(s): Z91.81 - History of falling Plan: Trip?and?fall-mechanical Keep?walk?ways?clear Continue?to?use?cane (6) Unsteady gait: Code(s): R26.81 - Unsteadiness on feet Plan: Mildly?unsteady?gait?but?uses?cane?and?does?well?with?this. Continues?to?use?cane (7) Adult general medical exam: Code(s): Z00.00 - Encounter for general adult medical examination without abnormal findings Plan: 63-year-old?male?presents?for?an?extended?exam Stable Orders: Orders AMB Hemoglobin A1c Today Z13.9 - Encounter for screening, unspecified Coding Level of Care Code Est Pt Level 3 (32183) Est Pt Prev Care 40-64y(49472) Diagnoses Essential (primary) hypertension I10 Diabetes type 2, controlled E11.9 Screening for prostate cancer Z12.5 Screening for malignant neoplasm of colon Z12.11 Status post fall Z91.81 Unsteady gait R26.81 Adult general medical exam Z00.00 Additional Codes SARAI-7 Assessment Billing - SARAI-7 Assessment Tool: SARAI-7 Assessment [id number] ([id number])
[2023-06-01 08:43] VITALS: BP 130/68; PULSE 62; RESP 13; O2SAT 97; BMI 28.5
== END 2023-06-01 09:47 | disposition home or self-care (01) ==
PROVIDERS: PCP Family Medicine; Visit Provider Family Medicine
DX: Z00.00 Encounter for general adult medical examination without abnormal findings (principal); I10 Essential (primary) hypertension; E11.9 Type 2 diabetes mellitus without complications; Z12.5 Encounter for screening for malignant neoplasm of prostate; Z12.11 Encounter for screening for malignant neoplasm of colon; Z91.81 History of falling; R26.81 Unsteadiness on feet; Z13.9 Encounter for screening, unspecified
CPT/HCPCS: 83036; 99212; 99396

== ENCOUNTER 2023-09-03 08:18 | Outpatient (AMB) | payer OTHER, SELFPAY ==
[2023-09-03 08:20] VITALS: BP 122/70; PULSE 69; RESP 14; TEMP 36.4; O2SAT 99; BMI 27.6
--- NOTE | 2023-09-03 08:20 | A.OFFPC_ITS ---
Vital Signs 09/03/23 08:20 Height 6 ft 3 in Weight 220 lb 8 oz BMI 27.6 BP 122/70 Blood Pressure Location Rt brachial Position Sitting Respiration 14 Pulse 69 Pulse Source Pulse Oximeter Temp 97.6 F Temp Source Temporal Artery Scan Pulse Oximetry (%) 99 Oxygen Delivery Method Room Air Intake Visit Reasons: f/u HTN Intake Note: Patient has a lump on his wrist that he just noticed. Envelope Addresser Required: No Accompanied by: Sister Allergies No Known Allergies [No Known Allergies*] Allergy (Verified 09/03/23 08:28) Medication List - Last Reconciled 09/03/23 by Jordi Crandall MD atenolol 50 mg PO DAILY atorvastatin 10 mg PO DAILY blood sugar diagnostic (FreeStyle Lite Strips) glucose monitoring 2 times a day; blood-glucose meter (FreeStyle Lite Meter kit) DX: E11.9, test blood sugar 2 times a day, duration 999 days cane Quad-Cane daily As directed, 999 days/Lifetime diphenhydramine HCl (Benadryl Allergy) 25 mg PO BEDTIME 3 days FreeStyle Lancets (lancets) 28 gauge topical TID NS furosemide (Lasix) 20 mg PO QAM 3 days hydrochlorothiazide 50 mg PO DAILY ibuprofen 800 mg PO TID PRN 30 days metformin ER 500 mg PO DAILY valsartan 160 mg PO DAILY Tobacco use date assessed: 06/01/23 Dental Screening Dental Screen Date: 09/03/23 Did you have a dental visit in the last 12 months?: No Did you have a dental problem in the last 6 months where you did not have access to dental care?: No Was dental information given to patient?: Yes HPI f/u HTN HPI Details 63 y/o male presents to f/u hypertension and diabetes. BP 122/70 A1c today 6.3% They report he sees ophtalmology Dr. Cid. [facility] Medical History Moderate intellectual disabilities Surgical History History of tooth extraction Family History (Updated 09/03/23 @ 08:30 by Palmira Trammell MA) Father HTN (hypertension) Hyperlipidemia Lymphoma Mother HTN (hypertension) Cancer Brother No problems noted. Brother Afib Obesity Heart attack Brother No problems noted. Brother No problems noted. Brother No problems noted. Sister No problems noted. Sister No problems noted. Social History (Updated 06/01/23 @ 08:54 by Sonia Marcelo [facility]) Household Members: Family Household Members Other:: Marcus [place] Housing: House Alcohol intake: never Patient Tobacco Use Status: Never used Tobacco e-Cigarette/Vaping Use: Never Used Second Hand Smoke Exposure: No service: No Current occupational status: disabled Current occupational exposures/hazards: No Sexual orientation: Unable to collect Gender identity: Unable to collect Cognitive needs: Yes Hearing needs: Yes Vision needs: No Questionnaire Thrive Questionnaire Date Thrive assessed: 06/01/23 SARAI-7 AMB Questionnaire SARAI-7 Date SARAI - 7 assessed: 06/01/23 Source: Developed by Drs. Aniket Liu, Lay Owens, Wilfrido Garza and colleagues, with an educational martín from [employer]. Review of Systems Const Denies chills, Denies fatigue, Denies fever(s), Denies headache(s) and Denies weakness ENT Denies dizziness and Denies headache(s) Card Denies chest pain, Denies lightheadedness, Denies dyspnea and Denies other (Palpitations) Resp Denies cough, Denies dyspnea, Denies wheezing and Denies other ( shortness of breath) Musc Denies numbness and Denies tingling Neuro Denies dizziness, Denies headache(s), Denies numbness, Denies tingling, Denies paresthesias and Denies weakness Psych Denies anxiety and Denies depression Endo Denies fatigue Aller/Immun Denies wheezing Physical exam (Primary Care) Vital Signs: Last Vital Signs Temp 97.6 F 09/03/23 08:20 Pulse 69 09/03/23 08:20 Resp 14 09/03/23 08:20 BP 122/70 09/03/23 08:20 Pulse Ox 99 09/03/23 08:20 Oxygen Delivery Method Room Air 09/03/23 08:20 BMI result Body Mass Index 27.6 Tobacco/Smoking Status: Tobacco use Status Tobacco use date assessed 06/01/23 09/03/23 08:31 Patient Tobacco Use Status Never used Tobacco 09/03/23 08:31 e-Cigarette/Vaping Use Never Used 09/03/23 08:31 Thrive Assessment: Date of Thrive Assessment Date Thrive assessed 06/01/23 09/03/23 08:31 Const General: no acute distress and well developed Nutritional Appearance: well nourished Orientation/consciousness: patient oriented x3 HENMT Head: Yes normocephalic and Yes atraumatic Eyes General: appearance normal, both eyes and all related structures Pupils: Equal, round and reactive pupils present EOM: EOMs intact bilaterally Resp Other: Upper airway secretions Effort & Inspection: normal respiratory effort Auscultation: clear to auscultation bilaterally Cardio Rate: regular rate Rhythm: regular rhythm Heart sounds: S1 normal heart sound present, S2 normal heart sound present, no gallops, no murmurs and no rubs Neuro General: patient oriented x3 and gait normal Cranial nerves: Yes Equal, round and reactive pupils present Psych Affect: normal affect Assessment and Plan Assessment & Plan (1) Essential (primary) hypertension: Code(s): I10 - Essential (primary) hypertension Plan: Blood?pressure?is?controlled.??Goal?is?less?than?140/90 Continue?current?medications (2) Diabetes type 2, controlled: Code(s): E11.9 - Type 2 diabetes mellitus without complications Plan: A1c?increased?from?5.8%?6.3%?but?is?still?at?goal?of?less?than?7.0% Continue?current?medication Work?on?diet?lower?in?sugars?and?starches 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
== END 2023-09-03 09:14 | disposition home or self-care (01) ==
PROVIDERS: PCP Family Medicine; Visit Provider Family Medicine
DX: I10 Essential (primary) hypertension (principal); E11.9 Type 2 diabetes mellitus without complications; R29.898 Other symptoms and signs involving the musculoskeletal system
CPT/HCPCS: 83036; 99213

== ENCOUNTER 2023-10-01 15:09 | Outpatient (AMB) | payer OTHER, SELFPAY ==
--- NOTE | 2023-10-01 15:21 | A.OFFPC_ITS ---
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 Accompanied by: Sister Allergies No Known Allergies [No Known Allergies*] Allergy (Verified 10/01/23 15:36) Medication List - Last Reconciled 10/01/23 by Milo Sharp CNP atenolol 50 mg PO DAILY atorvastatin 10 mg PO DAILY blood sugar diagnostic (FreeStyle Lite Strips) glucose monitoring 2 times a day; blood-glucose meter (FreeStyle Lite Meter kit) DX: E11.9, test blood sugar 2 times a day, duration 999 days cane Quad-Cane daily As directed, 999 days/Lifetime diphenhydramine HCl (Benadryl Allergy) 25 mg PO BEDTIME 3 days FreeStyle Lancets (lancets) 28 gauge topical TID NS furosemide (Lasix) 20 mg PO QAM 3 days hydrochlorothiazide 50 mg PO DAILY ibuprofen 800 mg PO TID PRN 30 days metformin ER 500 mg PO DAILY valsartan 160 mg PO DAILY Tobacco use date assessed: 10/01/23 Dental Screening Dental Screen Date: 09/03/23 Did you have a dental visit in the last 12 months?: No Did you have a dental problem in the last 6 months where you did not have access to dental care?: No Was dental information given to patient?: Yes HPI HPI Comments History of Present Illness Details 63-year-old male, accompanied by his sis samuel, presents with complaints of a painless umbilical lump to the left side of his umbilicus His sister/caregiver notes that she noticed the lump 2 weeks ago and has increased in size. She states that the patient has not reports pain PFSH Medical History Moderate intellectual disabilities Surgical History History of tooth extraction Family History Father HTN (hypertension) Hyperlipidemia Lymphoma Mother HTN (hypertension) Cancer Brother No problems noted. Brother Afib Obesity Heart attack Brother No problems noted. Brother No problems noted. Brother No problems noted. Sister No problems noted. Sister No problems noted. Social History Household Members: Family Household Members Other:: Brother, Marcus Housing: House Alcohol intake: never Patient Tobacco Use Status: Never used Tobacco e-Cigarette/Vaping Use: Never Used Second Hand Smoke Exposure: No service: No Current occupational status: disabled Current occupational exposures/hazards: No Sexual orientation: Unable to collect Gender identity: Unable to collect Cognitive needs: Yes Hearing needs: Yes Vision needs: No Questionnaire Thrive Questionnaire Date Thrive assessed: 06/01/23 SARAI-7 AMB Questionnaire SARAI-7 Date SARAI - 7 assessed: 06/01/23 Source: Developed by Drs. Aniket Liu, Lay Owens, Wilfrido Garza and colleagues, with an educational martín from [employer]. Review of Systems Const Details: Const Denies chills, Denies fatigue, Denies fever(s), Denies headache(s) and Denies weakness ENT Denies dizziness and Denies headache(s) Card Denies chest pain, Denies lightheadedness, Denies dyspnea and Denies other (Palpitations) Resp Denies cough, Denies dyspnea, Denies wheezing and Denies other ( shortness of breath) GI Denies abdominal pain, Denies melena, Denies hematochezia, Denies change in bowel habits, Denies dyspepsia and Denies nausea Denies hematuria and Denies dysuria Musc Denies abnormal gait, Denies myalgias, Denies arthralgias, Denies numbness and Denies tingling Skin/Breast Reports as per HPI Neuro Denies abnormal gait, Denies dizziness, Denies headache(s), Denies memory loss, Denies numbness, Denies Sensory deficit (Neuro), Denies tingling and Denies weakness Psych Denies anxiety, Denies depression, Denies memory loss Endo Denies cold intolerance, Denies fatigue, Denies heat intolerance, Denies polydipsia and Denies polyuria Aller/Immun Denies wheezing Physical exam (Primary Care) Vital Signs: Last Vital Signs Temp 98 F 10/01/23 15:22 Pulse 64 10/01/23 15:22 Resp 13 10/01/23 15:22 BP 136/70 10/01/23 15:22 Pulse Ox 96 10/01/23 15:22 Oxygen Delivery Method Room Air 10/01/23 15:22 BMI result Body Mass Index 27.7 Tobacco/Smoking Status: Tobacco use Status Tobacco use date assessed 10/01/23 10/01/23 15:31 Patient Tobacco Use Status Never used Tobacco 10/01/23 15:28 e-Cigarette/Vaping Use Never Used 10/01/23 15:28 Thrive Assessment: Date of Thrive Assessment Date Thrive assessed 06/01/23 10/01/23 15:28 Const Other: General: no acute distress and well developed Nutritional Appearance: well nourished Orientation/consciousness: patient oriented x3 HENMT Head: Yes normocephalic and Yes atraumatic Eyes General: appearance normal, both eyes and all related structures Pupils: Equal, round and reactive pupils present EOM: EOMs intact bilaterally Resp Effort & Inspection: normal respiratory effort Auscultation: clear to auscultation bilaterally Cardio Rate: regular rate Rhythm: regular rhythm Heart sounds: S1 normal heart sound present, S2 normal heart sound present, no gallops, no murmurs and no rubs GI Palpation (GI): No Abdominal aortic bruit present, Soft to palpation, nontender, No hepatosplenomegaly present and No Rebound tenderness present Auscultation: normal bowel sounds General: Yes no CVA tenderness Back/Spine/Pelvis Back: no CVA tenderness Cervical Spine: cervical ROM normal and No Cervical spine tenderness Thoracic/Lumbar Spine: thoraco-lumbar ROM normal, No pain with thoraco-lumbar ROM, No thoracic spinal tenderness and No lumbar spinal tenderness Extrem General: Yes normal to inspection, No edema and No calf tenderness Skin General: warm and dry. Normal skin color. Normal skin turgor Lesions: Approximately 5.5 cm x 4.5 cm soft, painless protrusion to the right side of the umbilicus, consistent with umbilical hernia Rashes: no rashes Trauma: no lacerations or abrasions Wounds: no wounds Nails: normal Neuro General: patient oriented x3, gait normal and no focal neuro deficit Cranial nerves: Yes Equal, round and reactive pupils present Cognition (Neuro): normal cognition Gait exam (Neuro): Normal gait present Sensory Exam: No Sensory deficit (Neuro) Psych Appearance: grossly normal Affect: normal affect Attitude: cooperative Thought process: Normal thought process present Assessment and Plan Assessment & Plan (1) Umbilical hernia: Code(s): K42.9 - Umbilical hernia without obstruction or gangrene Plan: Painless umbilical lump to the left side of umbilicus x2 weeks Approximately 5.5 cm x 4.5 cm soft, painless protrusion to the right side of the umbilicus, consistent with umbilical hernia Ultrasound ordered. Patient/she was informed that they will be notify [facility] for an [facility] Will review results and referred to general surgery if warranted Follow-up with PCP as planned Return sooner with symptoms or concerns Verbalized understanding and agreed with the treatment plan Orders: Orders US abdomen limited Today K42.9 - Umbilical hernia without obstruction or gangrene Coding Level of Care Code Est Pt Level 3 (27979) Diagnoses Umbilical hernia K42.9
[2023-10-01 15:22] VITALS: BP 136/70; PULSE 64; RESP 13; TEMP 36.6; O2SAT 96; BMI 27.7
== END 2023-10-01 15:49 | disposition home or self-care (01) ==
PROVIDERS: PCP Family Medicine; Visit Provider Nurse Practitioner Family
DX: K42.9 Umbilical hernia without obstruction or gangrene (principal)
CPT/HCPCS: 99213

== ENCOUNTER 2023-10-03 11:20 | Outpatient (REF) | payer OTHER, SELFPAY ==
--- NOTE | ~2023-10-03 | US_ITS ---
EXAMINATION: US ABDOMEN LIMITED CLINICAL INFORMATION: Umbilical hernia without obstruction or gangrene. COMPARISON: None available. TECHNIQUE: Real-time imaging of the periumbilical region. FINDINGS: Periumbilical hernia seen containing peristalsing bowel. The fascial defect measures 4.7 cm. No fluid collections or abnormal solid masses are seen. US/US abdomen limited IMPRESSION: Periumbilical hernia containing bowel.
== END 2023-10-03 11:21 | disposition home or self-care (01) ==
LOC: HO.US 11:20
PROVIDERS: PCP Family Medicine; Visit Provider Nurse Practitioner Family
DX: K42.9 Umbilical hernia without obstruction or gangrene (principal)
CPT/HCPCS: 76705

== ENCOUNTER 2023-12-03 08:30 | Outpatient (AMB) | payer OTHER, SELFPAY ==
--- NOTE | 2023-12-03 08:40 | A.OFFPC_ITS ---
Vital Signs 12/03/23 08:42 Height 6 ft 3 in Weight 220 lb 8 oz BMI 27.6 BP 122/80 Blood Pressure Location Lt brachial Position Sitting Pulse 71 Pulse Source Pulse Oximeter Pulse Oximetry (%) 98 Oxygen Delivery Method Room Air Intake Visit Reasons: f/u hypertension and diabetes Intake Note: Patient is here to follow up on hypertension and diabetes. Patient's sister is concerned about his hearing, has not been good lately, if you stand behind him, or beside him, he can't hear, doesn't respond. Also, following up on the ultrasound. Allergies No Known Allergies [No Known Allergies*] Allergy (Verified 12/03/23 08:43) Medication List - Last Reconciled 12/03/23 by Jordi Crandall MD atenolol 50 mg PO DAILY atorvastatin 10 mg PO DAILY blood sugar diagnostic (FreeStyle Lite Strips) glucose monitoring 2 times a day ; blood-glucose meter (FreeStyle Lite Meter kit) DX: E11.9, test blood sugar 2 times a day, duration 999 days cane Quad-Cane daily As directed, 999 days/Lifetime diphenhydramine HCl (Benadryl Allergy) 25 mg PO BEDTIME 3 days FreeStyle Lancets (lancets) 28 gauge topical TID NS furosemide (Lasix) 20 mg PO QAM 3 days hydrochlorothiazide 50 mg PO DAILY ibuprofen 800 mg PO TID PRN 30 days metformin ER 500 mg PO DAILY valsartan 160 mg PO DAILY Tobacco use date assessed: 12/03/23 Dental Screening Dental Screen Date: 09/03/23 HPI f/u hypertension and diabetes HPI Details Patient?presents?to?follow-up?hypertension,?diabetes?and?hearing?loss Taking?atenolol,?valsartan?and?hydrochlorothiazide?for?blood?pressure.??No?probl ems?with?these?medications Blood?pressure?today?122/80 Taking?metformin?for?diabetes A1c?was?6.3%?at?last?visit?and?now?6.0%. No?problems?with?these?medications. His?sister?has?improved?his?diet?and?decreased?starches He?gets?a?little?exercise?walking?with?his?cane Sister?is?concerned?about?his?umbilical?hernia.??Ultrasound?showed?umbilical?her skip?with?bowel?in?hernia?sac Denies?pain Significantly?worsened?hearing?bilaterally?and?pa tient?does?not?hear?well?if?he?is?not?looking?directly?at?the?[facility]?speaking?to ?him [facility] Medical History Moderate intellectual disabilities Surgical History History of tooth extraction Family History Father HTN (hypertension) Hyperlipidemia Lymphoma Mother HTN (hypertension) Cancer Brother No problems noted. Brother Afib Obesity Heart attack Brother No problems noted. Brother No problems noted. Brother No problems noted. Sister No problems noted. Sister No problems noted. Social History Household Members: Family Household Members Other:: Brother, Marcus Housing: House Alcohol intake: never Patient Tobacco Use Status: Never used Tobacco e-Cigarette/Vaping Use: Never Used Second Hand Smoke Exposure: No service: No Current occupational status: disabled Current occupational exposures/hazards: No Sexual orientation: Unable to collect Gender identity: Unable to collect Cognitive needs: Yes Hearing needs: Yes Vision needs: No Questionnaire Thrive Questionnaire Date Thrive assessed: 06/01/23 SARAI-7 AMB Questionnaire SARAI-7 Date SARAI - 7 assessed: 06/01/23 Source: Developed by Drs. Aniket Liu, Lay Owens, Wilfrido Garza and colleagues, with an educational martín from [employer]. Review of Systems Const Denies chills, Denies fatigue, Denies fever(s), Denies headache(s) and Denies weakness ENT Denies dizziness and Denies headache(s) Card Denies chest pain, Denies lightheadedness, Denies dyspnea and Denies other (Palpitations) Resp Denies cough, Denies dyspnea, Denies wheezing and Denies other ( shortness of breath) Musc Denies numbness and Denies tingling Neuro Denies dizziness, Denies headache(s), Denies numbness, Denies tingling, Denies paresthesias and Denies weakness Psych Denies anxiety and Denies depression Endo Denies fatigue Aller/Immun Denies wheezing Physical exam (Primary Care) Vital Signs: Last Vital Signs Pulse 71 12/03/23 08:42 BP 122/80 12/03/23 08:42 Pulse Ox 98 12/03/23 08:42 Oxygen Delivery Method Room Air 12/03/23 08:42 BMI result Body Mass Index 27.6 Tobacco/Smoking Status: Tobacco use Status Tobacco use date assessed 12/03/23 12/03/23 08:46 Patient Tobacco Use Status Never used Tobacco 12/03/23 08:41 e-Cigarette/Vaping Use Never Used 12/03/23 08:41 Thrive Assessment: Date of Thrive Assessment Date Thrive assessed 06/01/23 12/03/23 08:41 Const General: no acute distress and well developed Nutritional Appearance: well nourished Orientation/consciousness: patient oriented x3 HENMT Head: Yes normocephalic and Yes atraumatic Ears: hearing grossly impaired Eyes General: appearance normal, both eyes and all related structures Pupils: Equal, round and reactive pupils present EOM: EOMs intact bilaterally Resp Effort & Inspection: normal respiratory effort Auscultation: clear to auscultation bilaterally Cardio Rate: regular rate Rhythm: regular rhythm Heart sounds: S1 normal heart sound present, S2 normal heart sound present, no gallops, no murmurs and no rubs GI Other: Large?umbilical?hernia.??Bowel?sounds?present?and?normal?sounding No?tenderness Neuro General: patient oriented x3 and gait normal Cranial nerves: Yes Equal, round and reactive pupils present Psych Affect: normal affect Assessment and Plan Assessment & Plan (1) Essential (primary) hypertension: Code(s): I10 - Essential (primary) hypertension Plan: Pressure?is?well?controlled.??Goal?is?less?than?140/90 Continue?current?medication?regimen (2) Diabetes type 2, controlled: Code(s): E11.9 - Type 2 diabetes mellitus without complications Plan: A1c?6.0%.??Good?control.??Goal?is?less?than?7.0% Continue?metformin Continue?diabetic?diet?and?I?encouraged?exercise?as?tolerated (3) Umbilical hernia: Code(s): K42.9 - Umbilical hernia without obstruction or gangrene Plan: Large?umbilical?hernia. Ultrasound?shows?umbilical?hernia?with?bowel?in?hernia?sac Referred?to?general?surgery?for?consult (4) Hearing loss: Code(s): H91.90 - Unspecified hearing loss, unspecified ear Plan: Worsening?hearing?loss?bilaterally. Will?likely?benefit?from?amplification Referred?to?audiology Orders: Orders AMB Hemoglobin A1c Today Z13.9 - Encounter for screening, unspecified Referrals Audiology Referral F71 - Moderate intellectual disabilities, H91.90 - Unsp ecified hearing loss, unspecified ear General Surgery Referral K42.9 - Umbilical hernia without obstruction or gangrene Coding Level of Care Code Est Pt Level 4 (56712) Diagnoses Essential (primary) hypertension I10 Diabetes type 2, controlled E11.9 Umbilical hernia K42.9 Hearing loss H91.90
[2023-12-03 08:42] VITALS: BP 122/80; PULSE 71; O2SAT 98; BMI 27.6
== END 2023-12-03 09:15 | disposition home or self-care (01) ==
PROVIDERS: PCP Family Medicine; Visit Provider Family Medicine
DX: I10 Essential (primary) hypertension (principal); E11.9 Type 2 diabetes mellitus without complications; K42.9 Umbilical hernia without obstruction or gangrene; H91.93 Unspecified hearing loss, bilateral
CPT/HCPCS: 83036; 99214

== ENCOUNTER 2023-12-18 10:50 | Outpatient (AMB) | payer OTHER, SELFPAY ==
--- NOTE | 2023-12-18 10:53 | A.OFFVIS_ITS ---
Intake Visit Reasons: Umbilical hernia Intake Note: Patient is seen in office for evaluation and treatment of an umbilical hernia. 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 He has had the hernia for many years but recently was noted to have purplish skin changes which was new. This has subsequently resolved and the skin has returned to normal. 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 He has never undergone any surgery in this location. There has no apparent symptoms associated with the hernia including pain, nausea, vomiting, or bowel changes. He was doing some heavy lifting helping sister after the of another brother. He generally does not do much lifting during the day. [facility] Medical History Moderate intellectual disabilities Surgical History History of tooth extraction Family History Father HTN (hypertension) Hyperlipidemia Lymphoma Mother HTN (hypertension) Cancer Brother No problems noted. Brother Afib Obesity Heart attack Brother No problems noted. Brother No problems noted. Brother No problems noted. Sister No problems noted. Sister No problems noted. Social History Household Members: Family Household Members Other:: Brother, Marcus Housing: House Alcohol intake: never Patient Tobacco Use Status: Never used Tobacco e-Cigarette/Vaping Use: Never Used Second Hand Smoke Exposure: No service: No Current occupational status: disabled Current occupational exposures/hazards: No Sexual orientation: Unable to collect Gender identity: Unable to collect Cognitive needs: Yes Hearing needs: Yes Vision needs: No Review of Systems Const Unobtainable due to mental condition Physical Exam Const General: cooperative and no acute distress Nutritional Appearance: well nourished Orientation/consciousness: patient oriented x3 Limitations: no limitations HEENT Head: Yes normocephalic and Yes atraumatic Ears: hearing grossly normal bilaterally Resp Effort & Inspection: normal respiratory effort, no audible wheezes, no cough and no respiratory distress Cardio Jugular venous distension: no JVD GI Other: Wide-based hernia measuring at least 4.5 cm in diameter noted at umbilicus. Hernia increases with Valsalva maneuvers but easily reduces with light pressure. No overlying skin changes are appreciated and no tenderness is elicited with palpation. Inspection: Yes normal to inspection and Yes Abdominal panniculus present Abdomen image: 2 1. Site of hernia Skin Other: Warm, dry, no rash Neuro General: patient oriented x3 Extrem General: Yes no clubbing, cyanosis or edema Assessment & Plan Assessment & Plan (1) Umbilical hernia: Code(s): K42.9 - Umbilical hernia without obstruction or gangrene Category: Medical Qualifiers: Obstruction and gangrene presence: without obstruction or gangrene Q ualified Code(s): K42.9 - Umbilical hernia without obstruction or gangrene Plan 63-year-old male patient presenting with a large umbilical hernia. We discussed repair of the umbilical hernia verses observation. As he is relatively asymptomatic at this time it may be better to avoid surgery and continued observation. We reviewed the signs and symptoms to indicate evidence of incarceration or strangulation. He will return should these develop to arrange a surgical repair. He will otherwise follow up as needed. Coding Level of Care Code New Pt Level 4 (08392) Diagnoses Umbilical hernia without obstruction and without gangrene K42.9 Obstruction and gangrene presence: without obstruction or gangrene
== END 2023-12-18 11:39 | disposition home or self-care (01) ==
PROVIDERS: PCP Family Medicine; Referring Provider Family Medicine; Visit Provider Surgery
DX: K42.9 Umbilical hernia without obstruction or gangrene (principal)
CPT/HCPCS: 99204

== ENCOUNTER → 2023-12-18 10:50 | Outpatient (BNVA) | payer OTHER, SELFPAY | PROVIDERS: PCP Family Medicine; Referring Provider Family Medicine; Visit Provider Surgery | DX: K42.9 Umbilical hernia without obstruction or gangrene (principal) | CPT/HCPCS: 99202 ==

== ENCOUNTER 2024-03-04 08:38 | Outpatient (AMB) | payer OTHER, SELFPAY ==
--- NOTE | 2024-03-04 08:46 | MHC.PC.OV ---
Vital Signs 03/04/24 08:49 03/04/24 09:26 Height 5 ft 11 in Weight 224 lb BMI 31.2 BP 151/65 H 147/49 H Blood Pressure Location Rt brachial Lt brachial Position Sitting Sitting Respiration 16 Pulse 61 Pulse Source Pulse Oximeter Temp 97.9 F Temp Source Temporal Artery Scan Pulse Oximetry (%) 98 Oxygen Delivery Method Room Air Intake Visit Reasons: f/u hypertension and diabetes Intake Note: follow up for DM and HTN Allergies No Known Allergies [No Known Allergies*] Allergy (Verified 03/04/24 08:47) Medication List - Last Reconciled 03/04/24 by Jordi Crandall MD atenolol 50 mg PO DAILY atorvastatin 10 mg PO DAILY blood sugar diagnostic (FreeStyle Lite Strips) glucose monitoring 2 times a day; blood-glucose meter (FreeStyle Lite Meter kit) DX: E11.9, test blood sugar 2 times a day, duration 999 days cane Quad-Cane daily As directed, 999 days/Lifetime FreeStyle Lancets (lancets) 28 gauge topical TID NS furosemide (Lasix) 20 mg PO QAM 3 days hydrochlorothiazide 50 mg PO DAILY ibuprofen 800 mg PO TID PRN 30 days metformin ER 500 mg PO DAILY valsartan 160 mg PO DAILY Tobacco use date assessed: 12/03/23 Dental Screening Dental Screen Date: 09/03/23 HPI f/u hypertension and diabetes HPI Details 64 y/o male presents to f/u hypertension, diabetes. A1c 03/04/24 5.6%. He is on metformin 500mg daily. Blood pressure today 151/65. He is on valsartan 160mg, hydrochlorothiazide 50mg, atenolol 50mg daily. Has complaints of a wound on L rodriguez. Wound started a few days ago. Up to date with his tetanus shot. HPI Comments History of Present Illness Details Documentation assistance for Jordi Crandall MD, was provided by Matias Rebolledo, Environmental Services Coordinator on 03/04/2024 at 9:13 AM EST. I, Dr. Crandall, have read, observed, and verified documentation. [facility] Medical History Moderate intellectual disabilities Surgical History History of tooth extraction Family History Father HTN (hypertension) Hyperlipidemia Lymphoma Mother HTN (hypertension) Cancer Brother No problems noted. Brother Afib Obesity Heart attack Brother No problems noted. Brother No problems noted. Brother No problems noted. Sister No problems noted. Sister No problems noted. Social History Household Members: Family Household Members Other:: Brother, Marcus Housing: House Alcohol intake: never Patient Tobacco Use Status: Never used Tobacco e-Cigarette/Vaping Use: Never Used Second Hand Smoke Exposure: No service: No Current occupational status: disabled Current occupational exposures/hazards: No Sexual orientation: Unable to collect Gender identity: Unable to collect Cognitive needs: Yes Hearing needs: Yes Vision needs: No Questionnaire Thrive Questionnaire Date Thrive assessed: 06/01/23 SARAI-7 AMB Questionnaire SARAI-7 Date SARAI - 7 assessed: 06/01/23 Source: Developed by Drs. Aniket Liu, Lay Owens, Wilfrido Garza and colleagues, with an educational martín from [employer] Review of Systems Const Denies chills, Denies fatigue, Denies fever(s), Denies headache(s) and Denies weakness ENT Denies dizziness and Denies headache(s) Card Denies chest pain, Denies lightheadedness, Denies dyspnea and Denies other (Palpitations) Resp Denies cough, Denies dyspnea, Denies wheezing and Denies other ( shortness of breath) Musc Denies numbness and Denies tingling Neuro Denies dizziness, Denies headache(s), Denies numbness, Denies tingling, Denies paresthesias and Denies weakness Psych Denies anxiety and Denies depression Endo Denies fatigue Aller/Immun Denies wheezing Physical exam (Primary Care) Vital Signs: Last Vital Signs Temp 97.9 F 03/04/24 08:49 Pulse 61 03/04/24 08:49 Resp 16 03/04/24 08:49 BP 151/65 H 03/04/24 08:49 Pulse Ox 98 03/04/24 08:49 Oxygen Delivery Method Room Air 03/04/24 08:49 BMI result Body Mass Index 31.2 Tobacco/Smoking Status: Tobacco use Status Tobacco use date assessed 12/03/23 03/04/24 08:52 Patient Tobacco Use Status Never used Tobacco 03/04/24 08:52 e-Cigarette/Vaping Use Never Used 03/04/24 08:52 Thrive Assessment: Date of Thrive Assessment Date Thrive assessed 06/01/23 03/04/24 08:52 Const General: no acute distress and well developed Nutritional Appearance: well nourished Orientation/consciousness: patient oriented x3 [facility]: Yes normocephalic and Yes atraumatic Eyes General: appearance normal, both eyes and all related structures Pupils: Equal, round and reactive pupils present EOM: EOMs intact bilaterally Resp Effort & Inspection: normal respiratory effort Auscultation: clear to auscultation bilaterally Cardio Rate: regular rate Rhythm: regular rhythm Heart sounds: S1 normal heart sound present, S2 normal heart sound present, no gallops, no murmurs and no rubs Skin Other: Wound of L rodriguez, superficial Neuro General: patient oriented x3 and gait normal Cranial nerves: Yes Equal, round and reactive pupils present Psych Affect: normal affect Assessment and Plan Assessment & Plan (1) Essential (primary) hypertension: Code(s): I10 - Essential (primary) hypertension Plan: Blood?pressure?is?high?today.??Goal?is?less?than?140/90 However,?patient?has?had?recent?stressors?(his?dog?) Blood?pressure?is?usually?well?controlled No?medication?changes?today?however?he?will?come?back?in?a?month?for?nurse?visit?to?recheck?his?blood?pressure. (2) Diabetes type 2, controlled: Code(s): E11.9 - Type 2 diabetes mellitus without complications Plan: A1c?5.6%.??Good?control.??Goal?is?less?than?7.0% Continue?current?medication?regimen (3) Wound of skin: Code(s): T14.8XXA - Other injury of unspecified body region, initial encounter Plan: Wound?at?left?rodriguez He?is?up-to-date?with?his?tetanus?shot Wound?is?superficial - no?indication?for?sutures. Keep?covered?with?triple?antibiotic Call?or?return?to?office?if?any?S/S?infection. (4) Screening for malignant neoplasm of colon: Code(s): Z12.11 - Encounter for screening for malignant neoplasm of colon Plan: Patient?had?recent?Cologuard?test?which?is?not?resulted?yet Will?review?at?next?visit Orders: Orders Microalbumin, Random (w Creat) 4 Months I10 - Essential (primary) hypertension Comprehensive [place]. Panel Fast 4 Months Z00.00 - Encounter for general adult medical examination without abnormal findings Complete Blood Count Auto Diff 4 Months Z00.00 - Encounter for general adult medical examination without abnormal findings Lipid Panel 4 Months Z00.00 - Encounter for general adult medical examination without abnormal findings Prostate Specific Antigen Scr 4 Months Z12.5 - Encounter for screening for malignant neoplasm of prostate TSH reflex Free T4 4 Months Z00.00 - Encounter for general adult medical examination without abnormal findings UA and rflx microscopic 4 Months Z00.00 - Encounter for general adult medical examination without abnormal findings Medications: Discontinued furosemide (Lasix) Discontinued Reason: Patient Completed Course 20 mg PO QAM 3 days 3 tabs 0RF Coding Level of Care Code Est Pt Level 4 (02174) Diagnoses Essential (primary) hypertension I10 Diabetes type 2, controlled E11.9 Wound of skin T14.8XXA Screening for malignant neoplasm of colon Z12.11
[2024-03-04 08:49] VITALS: BP 151/65; PULSE 61; RESP 16; TEMP 36.6; O2SAT 98; BMI 31.2
[2024-03-04 09:26] VITALS: BP 147/49
== END 2024-03-04 09:32 | disposition home or self-care (01) ==
PROVIDERS: PCP Family Medicine; Visit Provider Family Medicine
DX: I10 Essential (primary) hypertension (principal); E11.9 Type 2 diabetes mellitus without complications; T14.8XXA Other injury of unspecified body region, initial encounter; Z12.11 Encounter for screening for malignant neoplasm of colon
CPT/HCPCS: 99214

== ENCOUNTER 2024-03-21 14:06 | Outpatient (AMB) | payer OTHER, SELFPAY ==
--- NOTE | 2024-03-21 14:12 | A.OFFPC_ITS ---
Vital Signs 03/21/24 14:14 Height 5 ft 11 in Weight 227 lb 2 oz BMI 31.7 BP 140/60 H Blood Pressure Location Rt brachial Position Sitting Respiration 10 L Pulse 57 Pulse Source Pulse Oximeter Temp 97.9 F Temp Source Tympanic Pulse Oximetry (%) 99 Oxygen Delivery Method Room Air Intake Visit Reasons: Left Leg Wound / Diabetes Intake Note: wound check Allergies No Known Allergies [No Known Allergies*] Allergy (Verified 03/21/24 14:13) Tobacco use date assessed: 12/03/23 Dental Screening Dental Screen Date: 09/03/23 HPI Left Leg Wound / Diabetes HPI Details 64 y/o male presents today with complain ts of a L leg wound. Had complaints of wound at L rodriguez last office visit. Recommended him to cover with triple antibiotic. He notes wound has been improving. They think he might have had a reaction to the antibiotics as a day after they had covered it with antibiotics the wound/redness worsened. They had stopped using the triple antibiotic. Blood pressure today 140/60, 57p. He is on atenolol 50mg, hydrochlorothiazide 50mg, valsartan 160mg daily. HPI Comments History of Present Illness Details Documentation assistance for Jordi Crandall MD, was provided by Matias Rebolledo, School Psychometrist on 03/21/2024 at 2:30 PM EST. I, Dr. Crandall, have read, observed, and verified documentation. [facility] Medical History Moderate intellectual disabilities Surgical History History of tooth extraction Family History Father HTN (hypertension) Hyperlipidemia Lymphoma Mother HTN (hypertension) Cancer Brother No problems noted. Brother Afib Obesity Heart attack Brother No problems noted. Brother No problems noted. Brother No problems noted. Sister No problems noted. Sister No problems noted. Social History Household Members: Family Household Members Other:: Brother, Marcus Housing: House Alcohol intake: never Patient Tobacco Use Status: Never used Tobacco e-Cigarette/Vaping Use: Never Used Second Hand Smoke Exposure: No service: No Current occupational status: disabled Current occupational exposures/hazards: No Sexual orientation: Unable to collect Gender identity: Unable to collect Cognitive needs: Yes Hearing needs: Yes Vision needs: No Questionnaire Thrive Questionnaire Date Thrive assessed: 06/01/23 SARAI-7 AMB Questionnaire SARAI-7 Date SARAI - 7 assessed: 06/01/23 Source: Developed by Drs. Aniket Liu, Lay Owens, Wilfrido Garza and colleagues, with an educational martín from [employer]. Review of Systems Const Denies chills, Denies fatigue, Denies fever(s), Denies headache(s) and Denies weakness ENT Denies dizziness and Denies headache(s) Card Denies dyspnea Resp Denies cough, Denies dyspnea, Denies wheezing and Denies other (shortness of breath) Musc Denies numbness and Denies tingling Neuro Denies dizziness, Denies headache(s), Denies numbness, Denies tingling and Denies weakness Psych Denies anxiety and Denies depression Endo Denies fatigue Aller/Immun Denies wheezing Physical exam (Primary Care) Vital Signs: Last Vital Signs Temp 97.9 F 03/21/24 14:14 Pulse 57 03/21/24 14:14 Resp 10 L 03/21/24 14:14 BP 140/60 H 03/21/24 14:14 Pulse Ox 99 03/21/24 14:14 Oxygen Delivery Method Room Air 03/21/24 14:14 BMI result Body Mass Index 31.7 Tobacco/Smoking Status: Tobacco use Status Tobacco use date assessed 12/03/23 03/21/24 14:17 Patient Tobacco Use Status Never used Tobacco 03/21/24 14:17 e-Cigarette/Vaping Use Never Used 03/21/24 14:17 Thrive Assessment: Date of Thrive Assessment Date Thrive assessed 06/01/23 03/21/24 14:17 Const General: well developed; No acute distress Nutritional Appearance: well nourished Orientation/consciousness: patient oriented x3 HENMT Head: Yes normocephalic and Yes atraumatic Eyes General: appearance normal, both eyes and all related structures Pupils: Equal, round and reactive pupils present EOM: EOMs intact bilaterally Resp Effort & Inspection: normal respiratory effort Auscultation: clear to auscultation bilaterally Cardio Rate: regular rate Rhythm: regular rhythm Heart sounds: S1 normal heart sound present, S2 normal heart sound present, no gallops, no murmurs and no rubs Neuro General: patient oriented x3 and gait normal Cranial nerves: Yes Equal, round and reactive pupils present Psych Affect: normal affect Assessment and Plan Assessment & Plan (1) Wound of skin: Code(s): T14.8XXA - Other injury of unspecified body region, initial encounter Plan: Improving Patient?likely?had?mild?reaction?to?topical triple?antibiotic?ointment Sister discontinued?use?and?this?is?improving. No?evidence?of?infection?at?this?time Would?keep?covered. Elevate?leg Call?or?return?to?office?if?worsening?or?fails?to?continue?improving.??Or?for?an y?other?concerning?symptoms. (2) Essential (primary) hypertension: Code(s): I10 - Essential (primary) hypertension Plan: Blood?pressure?remains?elevated. Increased?valsartan He?has?an?upcoming?appointment?and?we?can?recheck?blood?pressure?at?that?time. Medications: Changed From valsartan 160 mg PO DAILY 90 tabs 0RF To valsartan 240 mg (1.5 x 160 mg) PO DAILY 45 tabs 0RF 30 days Coding Level of Care Code Est Pt Level 3 (78270) Diagnoses Wound of skin T14.8XXA Essential (primary) hypertension I10
[2024-03-21 14:14] VITALS: BP 140/60; PULSE 57; RESP 10; TEMP 36.6; O2SAT 99; BMI 31.7
== END 2024-03-21 14:57 | disposition home or self-care (01) ==
PROVIDERS: PCP Family Medicine; Visit Provider Family Medicine
DX: T14.8XXA Other injury of unspecified body region, initial encounter (principal); I10 Essential (primary) hypertension

== ENCOUNTER → 2024-03-21 14:06 | Outpatient (BNVA) | payer OTHER, SELFPAY | PROVIDERS: PCP Family Medicine; Visit Provider Family Medicine | DX: I10 Essential (primary) hypertension (principal); T14.8XXA Other injury of unspecified body region, initial encounter | CPT/HCPCS: 99212 ==

== ENCOUNTER → 2024-04-03 08:52 | Outpatient (BNVA) | payer OTHER, SELFPAY | PROVIDERS: PCP Family Medicine; Visit Provider Family Medicine ==

== ENCOUNTER 2024-06-05 08:06 | Outpatient (AMB) | payer OTHER, SELFPAY ==
--- NOTE | 2024-06-05 08:16 | MHC.PC.OV ---
Vital Signs 06/05/24 08:27 Height 5 ft 11 in Weight 225 lb 8 oz BMI 31.4 BP 118/60 Blood Pressure Location Rt brachial Position Sitting Respiration 16 Pulse 67 Pulse Source Pulse Oximeter Temp 97.7 F Temp Source Oral Pulse Oximetry (%) 97 Oxygen Delivery Method Room Air Intake Visit Reasons: f/u diabetes & HTN Intake Note: F/U DM & HTN Allergies No Known Allergies [No Known Allergies*] Allergy (Verified 06/05/24 08:26) Medication List - Last Reconciled 06/05/24 by Jordi Crandall MD atenolol 50 mg PO DAILY atorvastatin 10 mg PO DAILY blood sugar diagnostic (FreeStyle Lite Strips) glucose monitoring 2 times a day; blood-glucose meter (FreeStyle Lite Meter kit) DX: E11.9, test blood sugar 2 times a day, duration 999 days cane Quad-Cane daily As directed, 999 days/Lifetime FreeStyle Lancets (lancets) 28 gauge topical TID NS hydrochlorothiazide 50 mg PO DAILY ibuprofen 800 mg PO TID PRN 30 days metformin ER 500 mg PO DAILY valsartan 240 mg (1.5 x 160 mg) PO DAILY 30 days Tobacco use date assessed: 12/03/23 Dental Screening Dental Screen Date: 09/03/23 HPI f/u diabetes & HTN HPI Details 64 y/o male presents to f/u diabetes, hypertension. Had increased valsartan from 160mg daily to 240mg daily. Blood pressure today 100/60, 67p. He is on atenolol 50mg, valsartan 240mg, HCTZ 50mg daily. BP on second reading 118/60. A1c today 6.1%, prior A1c 5.9%. He is on metformin 500mg daily. HPI Comments History of Present Illness Details Documentation assistance for Jordi Crandall MD, was provided by Matias Rebolledo,? Transit Manager on 06/05/2024 at 8:45 AM EST. I, Dr. Crandall, have read, observed, and verified documentation. [facility] Medical History Moderate intellectual disabilities Surgical History History of tooth extraction Family History Father HTN (hypertension) Hyperlipidemia Lymphoma Mother HTN (hypertension) Cancer Brother No problems noted. Brother Afib Obesity Heart attack Brother No problems noted. Brother No problems noted. Brother No problems noted. Sister No problems noted. Sister No problems noted. Social History Household Members: Family Household Members Other:: Brother, Marcus Housing: House Alcohol intake: never Patient Tobacco Use Status: Never used Tobacco e-Cigarette/Vaping Use: Never Used Second Hand Smoke Exposure: No service: No Current occupational status: disabled Current occupational exposures/hazards: No Sexual orientation: Unable to collect Gender identity: Unable to collect Cognitive needs: Yes Hearing needs: Yes Vision needs: No Questionnaire PHQ-9 Over the last 2 weeks, how often have you been bothered by any of the following problems? 1. Little interest or pleasure in doing things: not at all 2. Feeling down, depressed, or hopeless: not at all 3. Trouble falling or staying asleep, or sleeping too much: not at all 4. Feeling tired or having little energy: not at all 5. Poor appetite or overeating: not at all 6. Feeling bad about yourself - or that you are a failure or have let yourself or your family down: not at all 7. Trouble concentrating on things, such as reading the newspaper or watching television: not at all 8. Moving or speaking so slowly that other people could have noticed. Or the opposite - being so fidgety or restless that you have been moving around a lot more than usual: not at all 9. Thoughts that you would be better off or of hurting yourself in some way: not at all Total score: 0 Source: Developed by Drs. Aniket Liu, Lay Owens, Wilfrido Garza and colleagues, with an educational martín from [employer]. Thrive Questionnaire Date Thrive assessed: 05/29/24 I am a: Patient What is your living situation today?: I choose not to answer this question Within the past 12 months, did the food you bought not last and you didn't have the money to get more?: I choose not to answer this question Within the past 12 months, did you worry whether your food would run out before you got money to buy more?: I choose not to answer this question Do you have trouble paying for medicines?: No Do you have trouble getting transportation to medical appointments?: No Do you have trouble paying your heating and electricity bill?: No Do you have trouble taking care of your child, family member or friend?: I choose not to answer this question Do you have trouble with day-to-day activities such as bathing, preparing meals, shopping, managing finances, etc.?: Yes Are you currently unemployed and looking for a job?: I choose not to answer this question Are you interested in more education?: No Please select the resources that you would like help with: None Currently or been in a relationship where the following occur: I choose not to answer THRIVE Score: 0 AUDIT C Alcohol Use Questionnaire (AUDIT-C) 1. How often do you have a drink containing alcohol?: Never Total Score: 0 SARAI-7 AMB Questionnaire SARAI-7 Date SARAI - 7 assessed: 06/01/23 Feeling nervous, anxious, or on edge: 0 = Not at all Not being able to stop or control worryin = Not at all Worrying too much about different things: 0 = Not at all Trouble relaxin = Not at all Being so restless that it is hard to sit still: 0 = Not at all Becoming easily annoyed or irritable: 0 = Not at all Feeling afraid as if something awful might happen: 0 = Not at all Total SARAI-7 score (0-4 normal; 5-9 mild; 10-14 moderate; 15-21 severe): 0 Source: Developed by Drs. Aniket Liu, Lay Owens, Wilfrido Garza and colleagues, with an educational martín from [employer]. Review of Systems Const Denies chills, Denies fatigue, Denies fever(s), Denies headache(s) and Denies weakness ENT Denies dizziness and Denies headache(s) Card Denies dyspnea Resp Denies cough, Denies dyspnea, Denies wheezing and Denies other (shortness of breath) Musc Denies numbness and Denies tingling Neuro Denies dizziness, Denies headache(s), Denies numbness, Denies tingling and Denies weakness Psych Denies anxiety and Denies depression Endo Denies fatigue Aller/Immun Denies wheezing Physical exam (Primary Care) Vital Signs: Last Vital Signs Temp 97.7 F 06/05/24 08:27 Pulse 67 06/05/24 08:27 Resp 16 06/05/24 08:27 BP 100/60 06/05/24 08:27 Pulse Ox 97 06/05/24 08:27 Oxygen Delivery Method Room Air 06/05/24 08:27 BMI result Body Mass Index 31.4 Tobacco/Smoking Status: Tobacco use Status Tobacco use date assessed 12/03/23 06/05/24 08:17 Patient Tobacco Use Status Never used Tobacco 06/05/24 08:17 e-Cigarette/Vaping Use Never Used 06/05/24 08:17 PHQ-9: PHQ-9 Score PHQ-9: Total score 0 06/05/24 08:45 Thrive Assessment: Date of Thrive Assessment Date Thrive assessed 05/29/24 06/05/24 08:17 Currently or been in a relationship where the following occur: I choose not to answer Const General: well developed; No acute distress Nutritional Appearance: well nourished Orientation/consciousness: patient oriented x3 HENMT Head: Yes normocephalic and Yes atraumatic Eyes General: appearance normal, both eyes and all related structures Pupils: Equal, round and reactive pupils present EOM: EOMs intact bilaterally Resp Effort & Inspection: normal respiratory effort Neuro General: patient oriented x3 and gait normal Cranial nerves: Yes Equal, round and reactive pupils present Psych Affect: normal affect Coding Level of Care Code Est Pt Level 3 (20133) Diagnoses Diabetes type 2, controlled E11.9 Essential (primary) hypertension I10 Assessment & Plan Assessment & Plan (1) Diabetes type 2, controlled: Code(s): E11.9 - Type 2 diabetes mellitus without complications Category: Medical Plan: A1c?today?is?6.1%.??Remains?controlled.??Goal?is?less?than?7.0% Keep?working?on?a?diet?low?in?sugars?and?starches No?change?to?medication?today Patient?went?to?his?eye?doctor?in?December.??Up-to-date (2) Essential (primary) hypertension: Code(s): I10 - Essential (primary) hypertension Category: Medical Plan: Had?increased?valsartan?at?last?visit. ?Blood?now?pressure?118/60.??Good?control Continue?current?medication?regimen Orders: Orders Microalbumin, Random (w Creat) Today I10 - Essential (primary) hypertension UA and rflx microscopic Today I10 - Essential (primary) hypertension, Z00.00 - Encounter for general adult medical examination without abnormal findings Comprehensive [place]. Panel Fast Today I10 - Essential (primary) hypertension, Z00.00 - Encounter for general adult medical examination without abnormal findings
[2024-06-05 08:27] VITALS: BP 118/60; PULSE 67; RESP 16; TEMP 36.5; O2SAT 97; BMI 31.4
--- OUTSIDE RECORDS SUMMARY | 2024-06-10 23:31 | XMS_ITS ---
Author Organization [facility] a[place] Address [address] [place] [address] Care Team Providers Care Sharepoint Architect Name Role Phone Jordi Crandall MD Primary Care Provider Kristina Davis Unavailable [phone] Allergies No Known Allergies REASON FOR VISIT Skin problem(s), Toe Irritation, At Risk Footcare Medications Medication SIG (Take, Route, Frequency, Duration) Notes Start Date End Date Status hydroCHLOROthiazide 50 MG Oral for 90 Days Active Chlorhexidine Gluconate 0.12 % Mouth/Throat for 30 Days Active Ammonium Lactate 12 % 1 application Externally to affected areas of dry skin to feet except for between the toes Twice a day for 30 days Active Valsartan 160 MG Oral for 30 Days Active Ibuprofen 800 MG TAKE 1 TABLET BY BRUNA TH 3 TIMES A DAY NEEDED FOR PAIN FOR 30 DAYS Oral for 30 Days Active Extra Depth Orthopedic Shoes (1 Pair) with Customized Heat Molded Multidensity Innersoles (3 Pair) as directed Dx: NIDDM/Polyneuropathy (E11.42), Hammertoe Foot Deformity (M20.41,M20.42), Preulcerative Skin Lesion(s) (L85.1 06/04/2024 Active metFORMIN HCl 06/04/2024 Activ e Social History Tobacco Use: Social History Observation Description Date Details (start date - stop date) Never Smoker NA - NA Tobacco Use/Smoking Question Answer Notes Are you a: nonsmoker Additional Findings: Tobacco Non-User Current no n-smoker Tobacco use other than smoking: Question Answer Notes Are you an other tobacco user? No Problems Problem Type SNOMED Code ICD Code Onset Dates Problem Status W/U Status Risk Notes Problem Polyneuropathy due to type 2 diabetes mellitus (637162492) Type 2 diabetes mellitus with diabetic polyneuropathy (E11.42) Active confirmed Vital Signs Blood pressure systolic 140 mm Hg 06/04/20 24 Blood pressure diastolic 60 mm Hg 024 Height [id number] in 06/04/2024 Weight 222 lbs 06/04/2024 BMI 30.96 kg/m2 06/04/2024 Procedures Procedure Date Ordered Date Performed Result Body Sit e 68608-GNJCHBY NAIL, 6 OR MORE 06/04/2024 N/A 44191-OZKC SKIN LESIONS, OVER 4 06/04/2024 N/A Encounters Encounter Location Date Provider Diagnosis [facility] [place] [address] [place] [address] 06/04/2024 Kristina Munguiaaker Xerosis of skin L85.3 ; Other hammer toe(s) (acquired), right foot M20.41 ; Other hammer toe(s) (acquired), left foot M20.42 ; Type 2 diabetes mellitus with diabetic polyneuropathy E11.42 and Tinea unguium B35.1 Assessments Encounter Date Diagnosis (ICD Code) Assessment Notes Treatment Notes Treatment Clinical Notes Section Notes 06/04/2024 Xerosis of skin (ICD-10 - L85.3) 06/04/2024 Other hammer toe(s) (acquired), right foot (ICD-10 - M20.41) Patient Educated with: DIABETIC FOOT CARE INSTRUCTIONS. pdf (DIABETIC FOOT CARE INSTRUCTIONS. pdf) 06/04/2024 Other hammer toe(s) (acquired), left foot (ICD-10 - M20.42) 06/04/2024 Type 2 diabetes mellitus with diabetic polyneuropathy (ICD-10 - E11.42) 06/04/2024 Tinea unguium (ICD-10 - B35.1) Plan Of Treatment Medication Medication Name Sig Start Date Stop Date Notes Ammonium Lactate 12 % 1 application Exte rnally to affected areas of dry skin to feet except for between the toes Twice a day for 30 days Extra Depth Orthopedic Shoes (1 Pair) with Customized Heat Molded Multidensity Innersoles (3 Pair) as directed Dx: NIDDM/Polyneuropathy (E11.42), Hammertoe Foot Deformity (M20.41,M20.42), Preulcerative Skin Lesion(s) (L85.1 06/04/2024 Treatment Notes Assessment Notes Other hammer toe(s) (acquired), right fo ot Patient Educated with: DIABETIC FOOT CARE INSTRUCTIONS.pdf (DIABETIC FOOT CARE INSTRUCTIONS.pdf) Pending Test Test Name Order Date 40821-EGPZMMT NAIL, 6 OR MORE 06/04/2024 54809-UGZF SKIN LESIONS, OVER 4 06/04/20 Next Appt Details Follow Up: 3 Months, Reason: Provider Name:Sera marcos, 09/03/2024 09:00:00 AM, [address] [place] [address], [phone], Provider Name:Kristina keene, 12/01/2024 09:00:00 AM, [address] [place] [address], [phone], Procedure Notes * Category Sub-Category Detail Notes Debride Nail 6-10 Nail debridement Performance o f this nail treatment by a nonprofessional would put this patients foot and overall health at risk. Therefore, debridement to affected nail(s), as described in exam, was performed extensively to reduce/remove overall nail length, girth, thickness, subungual debris, and necrotic tissue, by manual and/or electrical means through the use of a nail nipper and/or dremel-type wood grinder, to a more viable healthy nail plate or bed tissue 6-10 nails in total. Silver nitrate was used for any petechial bleeding as necessary. Definitive antifungal treatment options, both pharmaceutical and surgical, have been reviewed and discussed with the patient. The patient solely prefers the use of intermittent/as needed professional debridement services for their nail condition and understands the need for additional periodic treatments to maintain effectiveness in symptomatic relief - 30801 Keratoma Treatment Parring or Cutting o f Benign Hyperkeratotic Lesion(s) (-57) More than 4 Lesions - The Benign hyperkeratotic lesions, (5) in total, locations as stated and described in exam, were pared, and/or cut utilizing a sterile 15 blade, tissue nippers, and/or power dremel instrumentation - 22804 Progress Notes * Allen MARTIN RDOB:1960 (64 yo M)Acc No.[id number]:06/04/2024 Progress Notes Patient:?Allen MARTIN Provider:?Kristina Pandey DPM :1960???Age:64 Y???Sex:Male Jerald e:06/04/2024 Address:[address] [place], [place] [id number] Pcp:Jordi Crandall MD Subjective: * Chief Complaints: * ???Skin problem(s)Toe Irrita tionAt Risk Footcare * HPI: ???Skin problems:?Nature:?dryness , scaling.?Location:?B/L .?Duration:?several days.?Course:?worse.?Toe pain:?Location:?B/L feet.?Duration:?several years.?Course:?worse.?Aggravated by:?shoes, any pressure.?Treatments:?change in shoes.?At Risk footcare:?Pt States Last PCP Visit:?Date?04/03/2024 * ROS:?General/Constitutional:?Nausea?denies.?Vomiting?denies.?Hunger Thirst?denies.?Loss appetite?denies.?Chills?denies.?Fatigue?denies.?Fever?denies.?Night Sweats?denies.?Unexplained weight loss?denies.?Unexplained weight gain?denies.?HEENTM:?Dentures?denies.?Dizziness?denies.?Glasses/contacts?denies.?Retinopathy?den ies.?Blurred/double vision?denies.?TMJ?denies.?Discharge/drainage?denies.?Implants?denies.?Sore throat?denies.?Dental implants?denies.?Hard of hearing ?denies.?Difficulty chewing/swallowing/speaking?denies.?Nose bleeds?denies.?Sore mouth?denies.?Respiratory:?On O xygen?denies.?Pneumonia/pleurisy?denies.?Bronchitis?denies.?Emphysema?denies.?Co ughing?denies.?Cough blood?denies.?Shortness of breath?denies.?Wheezing?denies.?Cardiovascular:?Pacemaker?denies.?MVP?denies.?WPW?denies.?CHF?denies.?Heart attack?denies.?Septal defect?denies.?Rapid beat?denies.?Chest pain ?denies.?Atrial Fib.?denies.?Murmur/Palpitations?denies.?Gastrointestinal:?Hemorrhoids?denies.?Stomach/Abdominal pain?denies.?Dark blood stool?denies.?Irritable bowel ?denies.?Constipation?denies.?Diarrhea?denies.?Hematology:?Swelling?denies.?Clots?denies.?Varicose Veins?denies.?Bruising?denies.?Bleeding problem?denies.?Genitourinary:?Blood urine?denies.?Frequent/Painfu/urination/bladder control?denies.?Kidney stones?denies.?Infection (UTI)?denies.?Nephropathy?denies.?sex trans dis (STD)?denies.?Prostate?denies.?Musculoskeletal:?Hammertoes?denies.?Bunions?denies.?Back Pain?denies.?Muscle Cramps/ Resting?denies.?Muscle cramps / walking?denies.?Generalized aches and pains?denies.?Weakness?denies.?Integ.:?Zamora?denies.?Scars?denies.?Corns/calluses?denies.?Ingrown nails?denies.?Painful nails?denies.?Open Sores?denies.?Rashes?denies.?Neurologic:?Difficulty sleeping?denies.?Brain disorder?denies.?Numbness?denies.?Balance t rouble?denies.?Confusion?denies.?Fainting/blackouts?denies.?Tingling?denies.?Rivera mors?denies.? * Medical History:? * Surgical History:?tooth eileen ceci 05/06/24 * Hospitalization/Major Diagno stic Procedure:?Denies Past Hospitalization * Family History:?Mother: dece ased, high blood pressure, diagnosed with Other malignant neoplasm of unspecified site, Unspecified essential hypertension, Family history of arthritis.?Father: , high blood pressure, diagnosed with Diabetic - NIDDM, Unspecified essential hypertension.?Siblings: high blood pressure, diagnosed with Unspecified essential hypertension.? * Social History:?Tobacco Use:?Tobacco Use/Smoking?Are you a:?nonsmoker ?Additional Findings: Tobacco Non-User?Current non-smoker ?Tobacco use other than smoking?Are you an other tobacco user??No * Medications:?TakingChlorhexi dine Gluconate 0.12 % Solution Mouth/Throat hydroCHLOROthiazide 50 MG Tablet Oral Valsartan 160 MG Tablet Oral Ibuprofen 800 MG Tablet TAKE 1 TABLET BY MOUTH 3 TIMES A DAY NEEDED FOR PAIN FOR 30 DAYS Oral metFORMIN HCl Medication List reviewed and reconciled with the patientTaking Chlorhexidine Gluconate 0.12 % Solution Mouth/Throat Taking hydroCHLOROthiazide 50 MG Tablet Oral Taking Valsartan 160 MG Tablet Oral Taking Ibuprofen 800 MG Tablet TAKE 1 TABLET BY MOUTH 3 TIMES A DAY NEEDED FOR PAIN FOR 30 DAYS Oral Taking metFORMIN HCl Medication List reviewed and reconciled with the patient * Allergies:?N.K.D.A.yes[Aller gianiya Verified] Objective: * Vitals:?Ht: 5fa66bu, Wt:222, BMI:30.96, Shoe size: 10.5-11, BP:140/60mm Hg, BS: 104, Ht-cm: 180.34 cm, Wt-k.7 kg. * ???Past Orders: ???Lab:HEMOGLOBIN A1C (GLYCO HEMOGLOBIN) (Order Date - 04/01/2024) (Collection Date & Time - 04/01/2024 08:33 AM) ? Value Reference Range ?TOTAL HEMOGLOBIN (HGBA1C) 5.7 * Examination: ???General Examination: ?GENERAL APPEARANCE:?Reveals a pleasant, alert, well nourished, well- developed, well hydrated individual, who demonstrates proper attention to hygiene/body habitus, and is in no acute distress, Pt serves as own historian for office visit today, Pt accompanied by Sister/Clinical Nursing Instructor , who serves as, additional Historian, and/who is physically present in exam room at time of visit.?ORIENTED:?person, place, and time.?FOOT EXAM:?Footwear Evaluation?Neurological: ?SENSORY:? Neurological exam demonstrates, reduced light touch sensation, reduced sharp/dull pin prick discrimination , B/L, 5.07 monofilament test performed at plantar aspects of 5 varied sites per foot shows sensation, reduced , B/L.?Dermatologic: ?SKIN FINDINGS:?Skin shows sign(s) of, dryness, scaling, in a stocking fashion, no fissure(s) present, B/L , Skin exam reveals Keratotic lesion(s) located at sub 1st metatarsal head B/L, plantar medial heels B/L, medial IPJ TA, T5.?Nails: ?NAILS are:?Elongated, overgrown, dystrophic, lytic, greater than 3mm thick, discolored and friable with crumbly malodorous subungual debris, with dull to no pain on palpation due to neuropathy T1, T2, T3, T4, T6, T7, T8, T9.?Orthopedic: ?MUSCLE STRENGTH:?5/5 all groups in a symmetrical fashion, B/L.?DIGITAL DEFORMITIES:?Digital contracture, PIPJ, 2-5 B/L, incompl-reducible to push-up test, no over, nor underlapping,?there is?evidence of shoe producing skin irritation.?FOOTWEAR:?worn, non-supportive, shoe gear properties exacerbate patient's foot/toe deformity.?Vascular: ?DP PULSES(B):?3/4, B/L.?PT PULSES(B):?3/4, B/L.?CAPILLARY FILL TIME:?immediate, all digits, B/L.?TROPHIC CONDITION-TEXTURE/ELASTICITY/TURGOR/HAIR GROWTH(B):?normal, B/L.?TEMPERTURE GRADIENT(C):?normal, warm to cool, proximal to distal, B/L, B/L.?PIGMENTATION:?normal, B/L.?EDEMA(C):?absent, B/L.?CLAUDICATION(C):?denies, B/L.?VARICOSITIES:?present, moderate, nonpainful, B/L.?Ophthalmology Referral: ?DIABETES EYE EXAM? Assessment: * Assessment: 1.?Xerosis of skin - L85.3?? ?Specify :Acute problem, Uncomplicated (3),Rx Management (4)???2.?Other hammer toe(s) (acquired), right foot - M20.41 (Primary)???Specify :Chronic problem, Worse (4),Rx Management (4)???3.?Other hammer toe(s) (acquired), left foot - M20.42???Specify :Chronic problem, Worse (4),Rx Management (4)???4.?Type 2 diabetes mellitus with diabetic polyneuropathy - E11.42???5.?Tinea unguium - B35.1??? Plan: * Treatment: 2.?Xerosis of skin? Start Ammonium Lactate Cream, 12 %, 1 application, Externally to affected areas of dry skin to feet except for between the toes, Twice a day, 30 days, 140, Refills 2.?? 3.?Type 2 diabetes mellitus with diabetic polyneuropathy?Procedure: 92532-WNAVYVF NAIL, 6 OR MORE ?Procedure: 66918-FZXP SKIN LESIONS, OVER 4 * Procedures:?Debride Nail 6-10:?Nail debridement?Performance of this nail treatment by a nonprofessional would put this patients foot and overall health at risk. Therefore, debridement to affected nail(s), as described in exam, was performed extensively to reduce/remove overall nail length, girth, thickness, subungual debris, and necrotic tissue, by manual and/or electrical means through the use of a nail nipper and/or dremel-type wood grinder, to a more viable healthy nail plate or bed tissue 6-10 nails in total. Silver nitrate was used for any petechial bleeding as necessary. Definitive antifungal treatment options, both pharmaceutical and surgical, have been reviewed and discussed with the patient. The patient solely prefers the use of intermittent/as needed professional debridement services for their nail condition and understands the need for additional periodic treatments to maintain effectiveness in symptomatic relief - 80426.?Keratoma Treatment:?Parring or Cutting of Benign Hyperkeratotic Lesion(s)?(-57) More than 4 Lesions - The Benign hyperkeratotic lesions, (5) in total, locations as stated and described in exam, were pared, and/or cut utilizing a sterile 15 blade, tissue nippers, and/or power dremel instrumentation - 17658.? * Procedure Codes:?81360 DEBRI DE NAIL, 6 OR MORE, Modifiers: XS 88727 TRIM SKIN LESIONS, OVER 4, Modifiers: XS * Preventive Medicine:? ??Counseling:?Discussion:?-04: Office or other outpatient visit for the evaluation and management of a new patient, which required a medically appropriate history and/or examination and MODERATE level of DECISION MAKING for: 1 OR MORE CHRONIC PROBLEM(S) THATS WORSENING, 2 STABLE CHRONIC PROBLEMS, A NEWLY DIAGNOSED PROBLEM WITH UNCERTAIN PROGNOSIS, AN ACUTE COMPLICATED INJURY WITH MULTIPLE TREATMENT OPTIONS, OR AN ACUTE PROBLEM WITH ACCOMPANYING SYSTEMIC SYMPTOMS, THAT POSE(S) A MODERATE RISK OF MORBIDITY. THIS CONDITION MAY ALSO INCLUDE RX DRUG MANAGEMENT, OR A DECISON FOR MINOR SURGERY. The visit on the day of the encounter encompassed interpreting the data and educating the patient as to the nature of their condition, treatment options available according to their individual PMH, meds, allergies, and overall health/living conditions, as well as any potential risks or complications that may occur from a failure to adhere to, and participate in, the recommended course of therapy. The discussion included a complete verbal, and/or written explanation of the examination results, any x-rays taken, the proposed diagnosis, and outline of the treatment plan. A schedule for future care needs was also explained. The patient verbalized an understanding of the instructions at this time and agreed to be an active participant in their treatment. If the patient should think of any questions or concerns after the visit, I have encouraged the patient to call the office.?Digital Surgery:?Digital surgery was discussed with the patient, We elected to try conservative treatment at the present time, due to the patients medical history and increased asssociated post-operative risks.?Digital Treatment:?HT- I explained to the patient the possible etiologies of Hammertoes, including genetics/foot type/shoegear/activity level/exercise routine and the risks/benefits of all the different treatment options for their pain including: No treatment at all, Rest, Ice, New/supportive/wider/deeper Shoegear, Digital Padding/Strapping/Taping/Bracing/Gel protective sleeves, Foot/Ankle AFO Bracing, Stretching exercises, Deep Tissue Massage, Arch support/shoe inserts with splay metatarsal padding, and Custom orthoses. I insisted that any digital devices be removed daily and not worn overnight for safety. The patient is to carefully examine the toes daily for any skin irritation while using any splinting or padding device. The advantages and disadvantages of each option were discussed and the patients questions re: shoegear, padding, custom vs prefabricated inserts, activity level, and consistency in home treatment regimens for optimal success were answered to their verbally confirmed satisfaction.?Shoe Gear Counseling:?SHOE Rx - The patient was counseled in great detail on their muscoloskeletal foot and toe deformities which coincided with the dermatological presentations visualized on exam. We discussed how their deformities put the integrity of their feet at risk for potential pedal complications which makes the accomidative diabetic shoes and cutomizable inserts medically necessary. We discussed the different shoe and insert treatment types and options, as well as the important advantages for adhering to regularly wearing these accomidative devices daily. The patient was made aware of the fact that a failure to abide by these recommedations may be deleterious to their foot health as they are able to prevent many pedal complications such as skin irritation, skin ulceration, infection, and even loss of toe/foot/leg/or life. Time was also spent with the patient dispensing and discussing proper diabetic footcare techniques including daily skin moisturization, daily foot inspection for any interruption in skin integrity including open lesions, or sign of infection such as redness/malodor/drainage/swelling. Also discussed and recommended were procedures regarding daily shoe inspection for the presence of internal foreign bodies as well as any visualized irregular shoe or insert wear. Patient questions re: shoes, inserts, and self foot inspections were answered to their satisfaction as the patient verbally confirmed a full understanding of the above information. A Rx for Extra Depth Orthopedic Shoes with 3 pair of custom heat-molded inserts was dispensed.?Xerosis:?The patient was counseled on the diagnosis, potential etiologies, and treatment options for their skin condition. We discussed the risks and benefits of each option from performing no treatment, to utilizing OTC topical skin creams/ointments, to utilizing prescription topical creams/ointments, to utilizing customized compounded topical medications and use of nocturnal occlusion with any/all previously detailed therapies. We discussed the advantages and disadvantages of each possible treatment and importance for adherence to all the recommended therapies for optimum success and avoid potential complications such as open sore/infection/possible hospitalization. We discussed the potential effectiveness of each topical preparation as well as each ones possible side effects and/or patient medication interactions. Patient questions re: use, dosage, successful outcomes, and application consistency were reviewed and the patient verbalized that all answers were clearly understood. The patient has decided to apply Rx skin creams to their feet save the interspaces while paying special attention to the heels. Such was sent to their pharmacy at the time of visit.? * Follow Up:?3 Months * Images: * Sign off status: Completed true * Provider:?Kristina Pandey DPM Date:?08/05/2023 Generated for Nadya leonard/Yuliana/Rafita on:?06/10/2024 11:31 PM EST History and Physical Notes * HPI (History of Present Illness) Category Sub-Category Detail Notes Category Not es Toe pain Location: B/L feet Duration: several years Course: worse Aggravated by: shoes, any pressure Treatments: change in shoes Skin problems Nature: dryness , scaling Location: B/L Duration: several days Course: worse At Risk footcare Pt States Last PCP Visit: Date: 4 Examination Category Sub-Category Detail Notes Category Not es Neurological SENSORY: Neurological exa m demonstrates, reduced light touch sensation, reduced sharp/dull pin prick discrimination , B/L, 5.07 monofilament test performed at plantar aspects of 5 varied sites per foot shows sensation, reduced , B/L Dermatologic SKIN FINDINGS: Skin shows sign( s) of, dryness, scaling, in a stocking fashion, no fissure(s) present, B/L , Skin exam reveals Keratotic lesion(s) located at sub 1st metatarsal head B/L, plantar medial heels B/L, medial IPJ TA, T5 Orthopedic FOOTWEAR: worn, non-suppor tive, shoe gear properties exacerbate patient's foot/toe deformity DIGITAL DEFORMITIES: Digital contracture , PIPJ, 2-5 B/L, incompl-reducible to push-up test, no over, nor underlapping, there is evidence of shoe producing skin irritation MUSCLE STRENGTH: 5/5 all groups in a symmetrical fashion, B/L General Examination GENERAL APPEARANCE: Reveals a pleasant, alert, well nourished, well-developed, well hydrated individual, who demonstrates proper attention to hygiene/body habitus, and is in no acute distress, Pt serves as own historian for office visit today, Pt accompanied by Sister/Clinical Nursing Instructor , who serves as, additional Historian, and/who is physically present in exam room at time of visit FOOT EXAM: Lower Extremity Neurological Exa m performed:: Yes ORIENTED: person, place, and t bella Footwear Evaluation Footwear Evaluation performe d:: Yes Ophthalmology Referral DIABETES EYE EXAM Procedure Perform ed:: Yes ?Date of Exam Performed: 12/31/2023 Findings of Diabetic Eye Exam:: retinopa thy Vascular DP PULSES(B): 3/4, B/L PT PULSES(B): 3/4, B/L CAPILLARY FILL TIME: immediate, all digi ts, B/L TEMPERTURE GRADIENT(C): normal, warm to cool, proximal to distal, B/L, B/L TROPHIC CONDITION-TEXTURE/ELASTICITY/TURGOR/HAIR GROWTH(B): normal, B/L EDEMA(C): absent, B/L VARICOSITIES: present, moderate, n onpainful, B/L CLAUDICATION(C): denies, B/L PIGMENTATION: normal, B/L Nails NAILS are: Elongated, overg rown, dystrophic, lytic, greater than 3mm thick, discolored and friable with crumbly malodorous subungual debris, with dull to no pain on palpation due to neuropathy T1, T2, T3, T4, T6, T7, T8, T9
--- OUTSIDE RECORDS SUMMARY | 2024-06-10 23:32 | XMS_ITS | Continuity of Care Document ---
Author Organization [facility] Address [address] [place] [address]- Care Team Providers Care Group Home Counselor Name Role Phone Karley ROY, Jordi Fuentes Primary Care Physician Encounter [facility] Date(s): 05/02/24 - 06/01/24 [facility] [address] [place] [address]- Attending Physician: Shad Lugo Admitting Physician: Shad Lugo Referring Physician: Admtr [place] Encounter Type: Triage Allergies, Adverse Reactions, Alerts No Known Medication Allergies Medications atenolol 50 mg oral tablet Refills 0, Maintenance, 05/02/24 10:16:00 AM EDT, Partial fill upon patient request if the prescription is for a schedule II opioid drug. Start Date: 05/02/24 Status: Ordered Repeat number: 1 atorvastatin 10 mg oral tablet 0 Refills, Maintenance, 05/02/24 10:16:00 AM EDT, Partial fill upon patient request if the prescription is for a schedule II opioid drug. Start Date: 05/02/24 Status: Ordered Repeat number: 1 hydrochlorothiazide 50 mg oral tablet Refills 0, Maintenance, 05/02/24 10:16:00 AM EDT, Partial fill upon patient request if the prescription is for a schedule II opioid drug. Start Date: 05/02/24 Status: Ordered Repeat number: 1 ibuprofen 800 mg oral tablet Refills 0, Maintenance, 05/02/24 10:16:00 AM EDT, Partial fill upon patient request if the prescription is for a schedule II opioid drug. Start Date: 05/02/24 Status: Ordered Repeat number: 1 MetFORMIN (Eqv-Glucophage XR) 500 mg oral tablet, extended release 0 Refills, Maintenance, 05/02/24 10:16:00 AM EDT, Partial fill upon patient request if the prescription is for a schedule II opioid drug. Start Date: 05/02/24 Status: Ordered Repeat number: 1 valsartan 160 mg oral tablet Refills 0, Maintenance, 05/02/24 10:16:00 AM EDT, Partial fill upon patient request if the prescription is for a schedule II opioid drug. Start Date: 05/02/24 Status: Ordered Repeat number: 1 Problem List Condition Confirmation Course Effective Dates Status Health St atus Informant Cerebral palsy Confirmed Active Diabetes mellitus Confirmed Active Hyperlipidemia Confirmed Active Hypertension Confirmed Active Obese class I Confirmed Active Social History Social History Type Response Smoking Status Never (less than 100 in lifetime) entered on: 05/02/24 Sex Sex Representation Male (finding) Patient Care team information Care Team Personnel Name: Karley ROY , Jordi Fuentes Position: S Outreach Member Role: PCP Address: [address] [place] [address] Telecom: Care Team Related Persons Name: RAMIRO ASHBY Name: MACARIO MACDONALD Insurance Providers Guarantor name: MANDIE Health Plan Information #: 1 Payer: NA Member Number: MANDIE Policy Number: NA Group Number: [id number]
--- OUTSIDE RECORDS SUMMARY | 2024-06-10 23:32 | XMS_ITS | Patient Health Record ---
Author Organization [facility] Address [address] [place] [address] Care Team Providers Care Scrubber System Attendant Name Role Phone Jordi Crandall MD Primary Care Provider Kristina Davis Unavailable [phone] Allergies No Known Allergies Results Component Value Reference Range Notes HEMOGLOBIN A1C (GLYCOHEMOGLO BIN) Reviewed date:06/04/2024 08:34:21 AM Interpretation: Performing Lab: Notes/Report: TOTAL HEMOGLOBIN (HGBA1C) 5.7 Reason For Referral No Information Medications Medication SIG (Take, Route, Frequency, Duration) Notes Start Date End Date Status hydroCHLOROthiazide 50 MG Oral for 90 Days Active Chlorhexidine Gluconate 0.12 % Mouth/Throat for 30 Days Active Extra Depth Orthopedic Shoes (1 Pair) with Customized Heat Molded Multidensity Innersoles (3 Pair) as directed Dx: NIDDM/Polyneuropathy (E11.42), Hammertoe Foot Deformity (M20.41,M20.42), Preulcerative Skin Lesion(s) (L85.1 06/04/2024 Active Ammonium Lactate 12 % 1 application Externally to affected areas of dry skin to feet except for between the toes Twice a day for 30 days Active Valsartan 160 MG Oral for 30 Days Active metFORMIN HCl 06/04/2024 Activ e Ibuprofen 800 MG TAKE 1 TABLET BY BRUNA TH 3 TIMES A DAY NEEDED FOR PAIN FOR 30 DAYS Oral for 30 Days Active Social History Tobacco Use: Social History Observation Description Date Details (start date - stop date) Never Smoker NA - NA Tobacco Use/Smoking Question Answer Notes Are you a: nonsmoker Additional Findings: Tobacco Non-User Current no n-smoker Alcohol Screen Question Answer Notes Did you have a drink containing alcohol in the p ast year? No Points 0 Interpretation Negative Tobacco use other than smoking: Question Answer Notes Are you an other tobacco user? No Problems Problem Type SNOMED Code ICD Code Onset Dates Problem Status W/U Status Risk Notes Problem Polyneuropathy due to type 2 diabetes mellitus (904806920) Type 2 diabetes mellitus with diabetic polyneuropathy (E11.42) Active confirmed Vital Signs Blood pressure diastolic 60 mm Hg 06/04/2024 Height [id number] in 06/04/2024 Blood pressure systolic 140 mm Hg 06/04/2024 Weight 222 lbs 06/04/2024 BMI 30.96 kg/m2 06/04/2024 Procedures Procedure Date Ordered Date Performed Result Body Sit e 34756-EGBVIOU NAIL, 6 OR MORE 06/04/2024 N/A 37568-TKOL SKIN LESIONS, OVER 4 06/04/2024 N/A Encounters Encounter Location Date Provider Diagnosis [facility] [address] [place] [address] 06/04/2024 Kristina Pandey Xerosis of skin L85.3 ; Other hammer [...] unguium (ICD-10 - B35.1) Plan Of Treatment Pending Test Test Name Order Date [id number] NAIL, 6 OR MORE 06/04/2024 44782-RPBV SKIN LESIONS, OVER 4 06/04/20 24 Next Appt Details Provider Name:Serasalvador marcos, 09/03/2024 09:00:00 AM, [address] [place] [address], [phone], Provider Name:Kristina Georgette keene, 12/01/2024 09:00:00 AM, [address] [place] [address], [phone], Insurance Providers Payer Name Payer Address Payer Phone Subscriber Number Group Number Insured Name Patient Relationship to Insured Coverage Start Date Coverage End Date [facility] Adv [address] [place] [id number] Allen Sidhu Self - patient is the insured Medical (General) History Medical History History ICD Code Arthritis Diabetic High Blood Pressure Cerebral palsy High Cholesterol Surgical History Surgery Date(Month/Year) tooth removal 05/06/24
== END 2024-06-05 08:51 | disposition home or self-care (01) ==
PROVIDERS: PCP Family Medicine; Visit Provider Family Medicine
DX: E11.9 Type 2 diabetes mellitus without complications (principal); I10 Essential (primary) hypertension

== ENCOUNTER → 2024-06-05 08:06 | Outpatient (BNVA) | payer OTHER, SELFPAY | PROVIDERS: PCP Family Medicine; Visit Provider Family Medicine | DX: E11.9 Type 2 diabetes mellitus without complications (principal); I10 Essential (primary) hypertension | CPT/HCPCS: 96127; 99212 ==

== ENCOUNTER 2024-09-16 07:54 | Outpatient (REF) | payer OTHER, SELFPAY ==
[2024-09-16 08:30] LABS: MANUAL DIFF FLAG NO
[2024-09-16 08:51] LABS: Basophils Percent Auto 0.5 % (0-2); Eosinophils Absolute Auto 0.2 X10*3/uL (0.0-0.4); Eosinophils Percent Auto 2.4 % (0-4); Hematocrit 41.3 % (42.0-52.0); Imm Gran Abs Auto 0.02 X10*3/uL (0.00-0.03); Imm Gran Pct Auto 0.3 % (0.0-0.4); Lymphocytes Absolute Auto 1.5 X10*3/uL (1.2-4.9); Lymphocytes Percent Auto 24.3 % (20-40); Mean Corpuscular HGB Conc 36.3 g/dl (31.0-36.0); Mean Corpuscular Hemoglobin 32.1 pg (27.0-33.0); Mean Corpuscular Volume 88.4 fL (80.0-98.0); Mean Platelet Volume 11.4 fL (9.4-12.4); Monocytes Absolute Auto 0.6 X10*3/uL (0.1-1.2); Monocytes Percent Auto 9.3 % (2-11); Neutrophils Absolute Auto 3.9 x10*3/uL (2.0-8.3); Neutrophils Percent Auto 63.2 % (45-73); Platelet Count 191 X10*3/uL (160-400); Red Blood Count 4.67 X10*6/uL (4.60-5.80); Red Cell Distribution Width 12.8 % (11.0-16.0); White Blood Count 6.2 X10*3/uL (4.8-10.8)
[2024-09-16 09:24] LABS: Alanine Aminotransferase 24 U/L (0-40); Albumin Level 4.3 g/dL (3.5-5.0); Alkaline Phosphatase 82 U/L (39-117); Anion Gap 12 (12-20); Aspartate Amino Transferase 23 U/L (5-37); Bilirubin Total 0.7 mg/dL (0.0-1.0); Blood Urea Nitrogen 24 mg/dL (9-16); Calcium 9.4 mg/dL (8.4-10.2); Carbon Dioxide 26 mmol/L (22-29); Chloride 105 mmol/L (96-108); Cholesterol 121 mg/dL (<200); Estimated Glomerular Filt Rate > 60; Glucose Fasting 143 mg/dL (60-99); HDL Cholesterol 50 mg/dL (>40); LDL Cholesterol Calculated 52 mg/dL (<100); Potassium 3.8 mmol/L (3.3-5.1); Sodium 139 mmol/L (135-145); Total Protein 7.8 g/dL (6.5-8.0); Triglycerides 99 mg/dL (<150)
[2024-09-16 09:41] LABS: TSH reflex Free T4 1.81 uIU/mL (0.32-4.0)
[2024-09-16 09:42] LABS: Prostate Specific Antigen Scr 1.75 ng/mL (<0.05-4.0)
== END 2024-09-16 07:55 | disposition home or self-care (01) ==
LOC: HO.LAB 07:54
PROVIDERS: PCP Family Medicine; Visit Provider Family Medicine
DX: Z00.00 Encounter for general adult medical examination without abnormal findings (principal); I10 Essential (primary) hypertension; Z12.5 Encounter for screening for malignant neoplasm of prostate
CPT/HCPCS: 36415; 80053; 80061; 84153; 84443; 85025

== ENCOUNTER 2024-09-17 08:57 | Outpatient (REF) | payer OTHER, SELFPAY ==
[2024-09-17 09:05] LABS: Appearance Urine Clear; Color Urine Yellow; Glucose Urine UA 100 mg/dL (Negative); Leukocyte Esterase Urine Negative (Negative); Nitrite Urine Negative (Negative); PH 6.5 (5.0-9.0); Urine Blood Negative (Negative); Urine Ketones Negative (Negative); Urine Protein Negative (Neg-Trace)
[2024-09-17 09:41] LABS: Creatinine Urine 107.08 mg/dL; Microalbumin Urine < 5.0 mg/L
== END 2024-09-17 08:58 | disposition home or self-care (01) ==
LOC: HO.LNP 08:57
PROVIDERS: Visit Provider Family Medicine
DX: Z00.00 Encounter for general adult medical examination without abnormal findings (principal); I10 Essential (primary) hypertension
CPT/HCPCS: 81003; 82043; 82570

== ENCOUNTER 2024-09-24 08:41 | Outpatient (AMB) | payer OTHER, SELFPAY ==
--- NOTE | 2024-09-24 08:55 | A.OFFPC_ITS ---
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 Allergies No Known Allergies [No Known Allergies*] Allergy (Verified 09/24/24 08:58) Medication List - Last Reconciled 09/24/24 by Jordi Crandall MD atenolol 50 mg PO DAILY atorvastatin 10 mg PO DAILY blood sugar diagnostic (FreeStyle Lite Strips) glucose monitoring 2 times a day; blood-glucose meter (FreeStyle Lite Meter kit) DX: E11.9, test blood sugar 2 times a day, duration 999 days cane Quad-Cane daily As directed, 999 days/Lifetime FreeStyle Lancets (lancets) 28 gauge topical TID NS hydrochlorothiazide 50 mg PO DAILY ibuprofen 800 mg PO TID PRN 30 days metformin ER 500 mg PO DAILY valsartan 240 mg (1.5 x 160 mg) PO DAILY 30 days Tobacco use date assessed: 09/24/24 Dental Screening Dental Screen Date: 09/24/24 Did you have a dental visit in the last 12 months?: Yes Did you have a dental problem in the last 6 months where you did not have access to dental care?: Yes Was dental information given to patient?: No HPI CPE with f/u labs and health maint HPI Details 64 y/o male presents for a CPE with f/u labs and health maintenance. Labs drawn 09/16/24. Reviewed labs with pt. Fasting glucose of 143. Last A1c 12/03/23 6.0%. Triglycerides 99. TC 121. LDL 52. HDL 50. PSA 1.75. Blood pressure today 130/60. He is on atenolol 50mg, HCTZ 50mg, valsartan 240mg daily. A1c today 09/24/24 is 6.3%. He is on metformin 500mg daily. HPI Comments History of Present Illness Details Documentation assistance for Jordi Crandall MD, was provided by Matias Rebolledo,? Medical Claims Representative on 09/24/2024 at 9:17 AM EST. Haro, Dr. Crandall, have read, observed, and verified documentation. ?? [facility] Medical History Moderate intellectual disabilities Surgical History History of tooth extraction Family History Father HTN (hypertension) Hyperlipidemia Lymphoma Mother HTN (hypertension) Cancer Brother No problems noted. Brother Afib Obesity Heart attack Brother No problems noted. Brother No problems noted. Brother No problems noted. Sister No problems noted. Sister No problems noted. Social History Household Members: Family Household Members Other:: Brother, Marcus Housing: House Alcohol intake: never Patient Tobacco Use Status: Never used Tobacco e-Cigarette/Vaping Use: Never Used Second Hand Smoke Exposure: No service: No Current occupational status: disabled Current occupational exposures/hazards: No Sexual orientation: Unable to collect Gender identity: Unable to collect Cognitive needs: Yes Hearing needs: Yes Vision needs: No Questionnaire PHQ-9 Over the last 2 weeks, how often have you been bothered by any of the following problems? 1. Little interest or pleasure in doing things: not at all 2. Feeling down, depressed, or hopeless: not at all 3. Trouble falling or staying asleep, or sleeping too much: not at all 4. Feeling tired or having little energy: not at all 5. Poor appetite or overeating: not at all 6. Feeling bad about yourself - or that you are a failure or have let yourself or your family down: not at all 7. Trouble concentrating on things, such as reading the newspaper or watching television: not at all 8. Moving or speaking so slowly that other people could have noticed. Or the opposite - being so fidgety or restless that you have been moving around a lot more than usual: not at all 9. Thoughts that you would be better off or of hurting yourself in some way: not at all Total score: 0 Depression Screening Interpretation: Negative Depression Screening Done: Yes 94705 - PHQ-9 Billing: Yes Source: Developed by Drs. Aniket Liu, Lay Owens, Wilfrido Garza and colleagues, with an educational martín from [employer]. Thrive Questionnaire Date Thrive assessed: 09/24/24 I am a: Parent/Caregiver What is your living situation today?: I have a steady place to live Within the past 12 months, did the food you bought not last and you didn't have the money to get more?: Never true Within the past 12 months, did you worry whether your food would run out before you got money to buy more?: Never true Do you have trouble paying for medicines?: No Do you have trouble getting transportation to medical appointments?: No Do you have trouble paying your heating and electricity bill?: No Do you have trouble taking care of your child, family member or friend?: No Do you have trouble with day-to-day activities such as bathing, preparing meals, shopping, managing finances, etc.?: No Are you currently unemployed and looking for a job?: No Are you interested in more education?: No Please select the resources that you would like help with: None Currently or been in a relationship where the following occur: I choose not to answer THRIVE Score: 0 AUDIT C Alcohol Use Questionnaire (AUDIT-C) 1. How often do you have a drink containing alcohol?: Never 3. How often do you have six or more drinks on one occasion?: Never Total Score: 0 Score Reviewed/Action Taken: Yes SARAI-7 AMB Questionnaire SARAI-7 Date SARAI - 7 assessed: 09/24/24 Feeling nervous, anxious, or on edge: 0 = Not at all Not being able to stop or control worryin = Not at all Worrying too much about different things: 0 = Not at all Trouble relaxin = Not at all Being so restless that it is hard to sit still: 0 = Not at all Becoming easily annoyed or irritable: 0 = Not at all Feeling afraid as if something awful might happen: 0 = Not at all Total SARAI-7 score (0-4 normal; 5-9 mild; 10-14 moderate; 15-21 severe): 0 Source: Developed by Lay Blair Kurt Kroenke and colleagues, with an educational martín from [employer]. SARAI-7 Assessment Billing SARAI-7 Assessment Tool: SARAI-7 Assessment 22604 Review of Systems Const Denies chills, Denies fatigue, Denies fever(s), Denies headache(s) and Denies weakness Eyes Denies change in vision ENT Denies dizziness, Denies headache(s), Denies hearing loss, Denies nasal congestion, Denies sinus pain, Denies sinus pressure and Denies sore throat Card Denies chest pain, Denies lightheadedness, Denies dyspnea and Denies other (palpitations) Resp Denies cough, Denies dyspnea and Denies wheezing GI Denies abdominal pain, Denies melena, Denies hematochezia, Denies change in bowel habits, Denies dyspepsia and Denies nausea Denies hematuria and Denies dysuria Musc Denies abnormal gait, Denies myalgias, Denies arthralgias, Denies numbness and Denies tingling Skin/Breast Denies rash, Denies unusual bruising and Denies wounds Neuro Denies abnormal gait, Denies dizziness, Denies headache(s), Denies memory loss, Denies numbness, Denies Sensory deficit (Neuro), Denies tingling and Denies weakness Psych Denies anxiety, Denies depression and Denies memory loss Endo Denies cold intolerance, Denies fatigue, Denies heat intolerance, Denies polydipsia and Denies polyuria Jonah/Lymph Denies easy bleeding and Denies easy bruising Aller/Immun Denies wheezing Physical exam (Primary Care) Vital Signs: Last Vital Signs Temp 97.0 F 09/24/24 09:04 Pulse 71 09/24/24 09:04 Resp 16 09/24/24 09:04 BP 130/60 09/24/24 09:13 Pulse Ox 99 09/24/24 09:04 Oxygen Delivery Method Room Air 09/24/24 09:04 BMI result Body Mass Index 32.4 Tobacco/Smoking Status: Tobacco use Status Tobacco use date assessed 09/24/24 09/24/24 09:03 Patient Tobacco Use Status Never used Tobacco 09/24/24 09:03 e-Cigarette/Vaping Use Never Used 09/24/24 09:03 PHQ-9: PHQ-9 Score PHQ-9: Total score 0 09/24/24 09:16 Depression Screening Interpretation: Negative Thrive Assessment: Date of Thrive Assessment Date Thrive assessed 09/24/24 09/24/24 09:03 Currently or been in a relationship where the following occur: I choose not to answer Const General: no acute distress, well developed, alert and awake Nutritional Appearance: well nourished Orientation/consciousness: patient oriented x3 HENMT Head: Yes normocephalic and Yes atraumatic Ears: hearing grossly normal bilaterally and TM's normal bilaterally General nose exam: Normal external nose present and Normal nares present Mouth: Normal oral and palatal mucosa present and moist mucous membranes Teeth and gingiva: dentition normal Throat: Yes posterior oropharynx normal Eyes General: appearance normal, both eyes and all related structures Pupils: Equal, round and reactive pupils present and Pupil accommodation reflex normal EOM: EOMs intact bilaterally Neck Neck: Yes normal visual inspection, Yes no lymphadenopathy and Yes trachea midline Thyroid: Thyroid normal Carotids: no bruits Lymphatic: no lymphadenopathy noted Chest Chest palpation & inspection: normal inspection of the chest Resp Effort & Inspection: normal respiratory effort Auscultation: clear to auscultation bilaterally Cardio Rate: regular rate Rhythm: regular rhythm Heart sounds: S1 normal heart sound present, S2 normal heart sound present, no gallops, no murmurs and no rubs Bruits: no abdominal aortic bruits and no carotid bruits GI Palpation (GI): No Abdominal aortic bruit present, Soft to palpation, nontender, No hepatosplenomegaly present and No Rebound tenderness present Auscultation: normal bowel sounds General: Yes no CVA tenderness Back/Spine/Pelvis Back: no CVA tenderness Cervical Spine: cervical ROM normal and No Cervical spine tenderness Thoracic/Lumbar Spine: thoraco-lumbar ROM normal, No pain with thoraco-lumbar ROM, No thoracic spinal tenderness and No lumbar spinal tenderness Skin Lesions: no lesions Rashes: no rashes Trauma: no lacerations or abrasions Wounds: no wounds Nails: normal Neuro General: patient oriented x3 Cranial nerves: Yes Equal, round and reactive pupils present Cognition (Neuro): normal cognition Gait exam (Neuro): Normal gait present Motor exam (neuro): 5/5 motor strength present throughout Sensory Exam: No Sensory deficit (Neuro) Deep tendon reflexes (DTR's): Right patellar reflex intensity grade: 2+ and Left patellar reflex intensity grade: 2+ Extrem General: Yes normal to inspection and No edema Psych Appearance: grossly normal Affect: normal affect Attitude: cooperative Thought process: Normal thought process present Coding Level of Care Code Est Pt Level 3 (44176) Est Pt Prev Care 40-64y(97216) Diagnoses Adult general medical exam Z00.00 Diabetes type 2, controlled E11.9 Essential (primary) hypertension I10 Screening for prostate cancer Z12.5 Screening for malignant neoplasm of colon Z12.11 Additional Codes SARAI-7 Assessment Billing - SARAI-7 Assessment Tool: SARAI-7 Assessment 64983 ([id number]) PHQ-9 - 99511 - PHQ-9 Billing: Yes ([id number]) Assessment & Plan Assessment & Plan (1) Adult general medical exam: Code(s): Z00.00 - Encounter for general adult medical examination without abnormal findings Category: Medical Plan: 64-year-old?male?presents?for?complete?physical?exam Encouraged?healthy?diet?with?active?lifestyle?of?exercise (2) Diabetes type 2, controlled: Code(s): E11.9 - Type 2 diabetes mellitus without complications Category: Medical Plan: A1c?6.3%?is?good?control.??Goal?is?less?than?7.0% Continue?current?medication (3) Essential (primary) hypertension: Code(s): I10 - Essential (primary) hypertension Category: Medical Plan: Blood?pressure?is?controlled.??Goal?is?less?than?140/90 Continue?current?medications (4) Screening for prostate cancer: Code(s): Z12.5 - Encounter for screening for malignant neoplasm of prostate Category: Medical Plan: PSA?is?within?normal?limits Will?continue?annual?screening (5) Screening for malignant neoplasm of colon: Code(s): Z12.11 - Encounter for screening for malignant neoplasm of colon Category: Medical Plan: Cologuard?in?02/19/2024?was?negative. Up-to-date?and?will?rescreen?in?2026
[2024-09-24 09:04] VITALS: BP 150/70; PULSE 71; RESP 16; TEMP 36.1; O2SAT 99; BMI 32.4
--- OUTSIDE RECORDS SUMMARY | 2024-09-24 09:10 | XMS_ITS | Patient Health Record ---
[facility] Organization [facility] Address [address] [place] [address] Care Team Providers Care Taxicab Dispatcher Name Role Phone Jordi Crandall MD Primary Care Provider Kristina Davis Unavailable [phone] ChayitoDarenen Unavailable [phone] Allergies No Known Allergies Results Component Value Reference Range Notes HEMOGLOBIN A1C (GLYCOHEMOGLO BIN) Reviewed date:06/04/2024 08:34:21 AM Interpretation: Performing Lab: Notes/Report: TOTAL HEMOGLOBIN (HGBA1C) 5.7 HEMOGLOBIN A1C (GLYCOHEMOGLO BIN) Reviewed date:09/03/2024 08:55:27 AM Interpretation: Performing Lab: Notes/Report: HEMOGLOBIN A1C % (HH) 6.2 Reason For Referral No Information Medications Medication SIG (Take, Route, Frequency, Duration) Notes Start Date End Date Status Ammonium Lactate 12 % 1 application Externally to affected areas of dry skin to feet except for between the toes Twice a day for 30 days Active Atorvastatin Calcium 10 MG 1 tablet Oral ly Once a day Active Extra Depth Orthopedic Shoes (1 Pair) with Customized Heat Molded Multidensity Innersoles (3 Pair) as directed Dx: NIDDM/Polyneuropathy (E11.42), Hammertoe Foot Deformity (M20.41,M20.42), Preulcerative Skin Lesion(s) (L85.1 06/04/2024 Active Chlorhexidine Gluconate 0.12 % Mouth/Throat for 30 Days Not-Taking Ibuprofen 800 MG 1 tablet with food o r milk as needed Orally every 8 hrs Active metFORMIN HCl ER 500 MG 1 tablet with ev ening meal Orally Once a day Active Atenolol 50 MG 1 tablet Orally Once a day Active metFORMIN HCl 06/04/2024 Activ e Ibuprofen 800 MG TAKE 1 TABLET BY MOUTH 3 TIMES A DAY NEEDED FOR PAIN FOR 30 DAYS Oral for 30 Days Active Valsartan 160 MG Oral for 30 Days Not-Taking hydroCHLOROthiazide 50 MG Oral for 90 Days Active hydroCHLOROthiazide 50 MG 1 tablet in th e morning Orally Once a day Active Valsartan 160 MG 1 tablet Orally Once a day Active Social History Tobacco Use: Social History [...] Problem Status W/U Status Risk Notes Problem Acquired hammer toe of right foot ([id number] ) Other hammer toe(s) (acquired), right foot (M20.41) Active confirmed Problem Acquired hammer toe of left foot ([id number] ) Other hammer toe(s) (acquired), left foot (M20.42) Active confirmed Problem Polyneuropathy due to type 2 diabetes mellitus (047507034) Type 2 diabetes mellitus with diabetic polyneuropathy (E11.42) Active confirmed Vital Signs Blood pressure diastolic 65 mm Hg 09/03/2024 Height 4ax84ww in 09/03/2024 Blood pressure systolic 149 mm Hg 09/03/2024 Weight 227 lbs 09/03/2024 BMI 31.66 kg/m2 09/03/2024 Procedures Procedure Date Ordered Date Performed Result Body Sit e 79315-IYZBZHW NAIL, 6 OR MORE 06/04/2024 N/A 04352-ITIQ SKIN LESIONS, OVER 4 06/04/2024 N/A Encounters Encounter Location Date Provider Diagnosis [facility] [address] [place] [address] 06/04/2024 Kristina Pandey Xerosis of skin L85.3 ; Other hammer toe(s) (acquired), right foot M20.41 ; Other hammer toe(s) (acquired), left foot M20.42 ; Type 2 diabetes mellitus with diabetic polyneuropathy E11.42 and Tinea unguium B35.1 [facility] [address] [place] [address] 09/03/2024 Sera Stratton Xerosis of skin L85. 3 ; Other hammer toe(s) (acquired), right foot M20.41 ; Other hammer toe(s) (acquired), left foot M20.42 ; Type 2 diabetes mellitus with diabetic polyneuropathy E11.42 ; Tinea unguium B35.1 and Abscess of toe, left L02.612 Assessments Encounter Date Diagnosis (ICD Code) Assessment Notes Treatment Notes Treatment Clinical Notes Section Notes 06/04/2024 Xerosis of skin (ICD-10 - L85.3) 09/03/2024 Other hammer toe(s) (acquired), right foot (ICD-10 - M20.41) 09/03/2024 Xerosis of skin (ICD-10 - L85.3) 09/03/2024 Other hammer toe(s) (acquired), left foot (ICD-10 - M20.42) 06/04/2024 Other hammer toe(s) (acquired), right foot (ICD-10 - M20.41) Patient Educated with: DIABETIC FOOT CARE INSTRUCTIONS. pdf (DIABETIC FOOT CARE INSTRUCTIONS. pdf) 06/04/2024 Other hammer toe(s) (acquired), left foot (ICD-10 - M20.42) 06/04/2024 Type 2 diabetes mellitus with diabetic polyneuropathy (ICD-10 - E11.42) 09/03/2024 Type 2 diabetes mellitus with diabetic polyneuropathy (ICD-10 - E11.42) 09/03/2024 Tinea unguium (ICD-10 - B35.1) 06/04/2024 Tinea unguium (ICD-10 - B35.1) 09/03/2024 Abscess of toe, left (ICD-10 - L02.612) Patient Educated with: WOUND CARE INSTRUCTIONS. pdf (WOUND CARE INSTRUCTIONS. pdf) Plan Of Treatment Pending Test Test Name Order Date [id number] NAIL, 6 OR MORE 06/04/2024 [id number] SKIN LESIONS, OVER 4 06/04/20 24 Next Appt Details Provider Name:Krisitna keene, 12/01/2024 09:00:00 AM, [address] [place], [address], Insurance Providers Payer Name Payer Address Payer Phone Subscriber Number Group Number Insured Name Patient Relationship to Insured Coverage Start Date Coverage End Date [facility] Adv [address] [place] [address] [id number] Allen Sidhu Self - patient is the insured Medical (General) History Medical History History ICD Code Arthritis Diabetic High Blood Pressure Cerebral palsy High Cholesterol Surgical History Surgery Date(Month/Year) tooth removal 05/06/24
--- OUTSIDE RECORDS SUMMARY | 2024-09-24 09:10 | XMS_ITS ---
Author Organization [facility] Address [address] [place] [address] Care Team Providers Care Medical Supply Technician Name Role Phone Jordi Crandall MD Primary Care Provider Kristina Davis Unavailable [phone] ShannanSera marcos Unavailable [phone] Allergies No Known Allergies REASON FOR VISIT Skin problem(s), Toe Irritation, At Risk Footcare, Possible Infection Medications Medication SIG (Take, Route, Frequency, Duration) Notes Start Date End Date Status metFORMIN HCl 06/04/2024 Activ e Ibuprofen 800 MG TAKE 1 TABLET BY MOUTH 3 TIMES A DAY NEEDED FOR PAIN FOR 30 DAYS Oral for 30 Days Active Valsartan 160 MG Oral for 30 Days Not-Taking hydroCHLOROthiazide 50 MG Oral for 90 Days Active Extra Depth Orthopedic Shoes (1 Pair) with Customized Heat Molded Multidensity Innersoles (3 Pair) as directed Dx: NIDDM/Polyneuropathy (E11.42), Hammertoe Foot Deformity (M20.41,M20.42), Preulcerative Skin Lesion(s) (L85.1 06/04/2024 Active Atorvastatin Calcium 10 MG 1 tablet Oral ly Once a day Active Chlorhexidine Gluconate 0.12 % Mouth/Throat for 30 Days Not-Taking Ibuprofen 800 MG 1 tablet with food o r milk as needed Orally every 8 hrs Active metFORMIN HCl ER 500 MG 1 tablet with ev ening meal Orally Once a day Active Atenolol 50 MG 1 tablet Orally Once a day Active Ammonium Lactate 12 % 1 application Externally to affected areas of dry skin to feet except for between the toes Twice a day for 30 days Active hydroCHLOROthiazide 50 MG 1 tablet in [...] Problem Acquired hammer toe of right foot (6753215904493 105) Other hammer toe(s) (acquired), right foot (M20.41) Active confirmed Problem Acquired hammer toe of left foot ([id number] 103) Other hammer toe(s) (acquired), left foot (M20.42) Active confirmed Vital Signs Height 3iy15kx in 09/03/2024 Weight 227 lbs 09/03/2024 BMI 31.66 kg/m2 09/03/2024 Blood pressure systolic 149 mm Hg 09/04/19 25 Blood pressure diastolic 65 mm Hg 025 Encounters Encounter Location Date Provider Diagnosis [facility] [place] [address] [place] [address] 09/03/2024 Sera Stratton Xerosis of skin L85. 3 ; Other hammer toe(s) (acquired), right foot M20.41 ; Other hammer toe(s) (acquired), left foot M20.42 ; Type 2 diabetes mellitus with diabetic polyneuropathy E11.42 ; Tinea unguium B35.1 and Abscess of toe, left L02.612 Assessments Encounter Date Diagnosis (ICD Code) Assessment Notes Treatment Notes Treatment Clinical Notes Section Notes 09/03/2024 Xerosis of skin (ICD-10 - L85.3) 09/03/2024 Other hammer toe(s) (acquired), right foot (ICD-10 - M20.41) 09/03/2024 Other hammer toe(s) (acquired), left foot (ICD-10 - M20.42) 09/03/2024 Type 2 diabetes mellitus with diabetic polyneuropathy (ICD-10 - E11.42) 09/03/2024 Tinea unguium (ICD-10 - B35.1) 09/03/2024 Abscess of toe, left (ICD-10 - L02.612) Patient Educated with: WOUND CARE INSTRUCTIONS. pdf (WOUND CARE INSTRUCTIONS. pdf) Plan Of Treatment Medication Medication Name Sig Start Date Stop Date Notes Ammonium Lactate 12 % 1 application Exte rnally to affected areas of dry skin to feet except for between the toes Twice a day for 30 days Treatment Notes Assessment Notes Abscess of toe, left Patient Educated wi th: WOUND CARE INSTRUCTIONS.pdf (WOUND CARE INSTRUCTIONS.pdf) Next Appt Details Follow Up: 3 Months, Reason: Provider Name:Kristina Palomino jassi, 12/01/2024 09:00:00 AM, [address] [place] [address], [phone], Procedure Notes * Category Sub-Category Detail Notes [...] use of a nail nipper and/or dremel-type grinder mill operator, to a more viable healthy nail plate [...] to maintain effectiveness in symptomatic relief - 94846 I&D nail abscess Location Total nail, T3 Procedure Performed incision a nd drainage of Single Nail Abscess with use of sterile nail nipper/316 blade. Approximately ( 0.1 ) cc purulent fluid material was drained. The infected devitalized soft tissue was curettaged to healthy bleeding bed. Any affected nail portion was removed to the eponychium . Any evidence of granuloma was also removed at this time. No underlying bone was visualized. There was minimal bleeding as hemostasis was achieved through the temporary use of either a digital tournaquet or the aforementioned local with epinephrine. An application of sterile Bacitracin dressing was performed. Local wound care instructions were discussed and dispensed. Recommended Tylenol or Motrin for pain/discomfort (83757) Type Single, Abscess Anesthesia was deferred - NEURO CODY: patient has medically documented neuropathic condition affecting sensation Keratoma Treatment Parring or Cutting o f Benign Hyperkeratotic Lesion(s) (-57) More than 4 Lesions - Due to the a t risk nature of the patients medical condition as documented in the exam findings, performance of this keratoderma treatment is medically necessary as its management by an unskilled/untrained nonprofessional would put this patients foot and overall health at risk. Therefore, the benign hyperkeratotic lesions, ( 6 ) in total, locations as stated and described in the exam ( sub 1st metatarsal head B/L, plantar medial heels B/L, medial IPJ TA, T5 ), were pared, and/or cut utilizing a sterile 15 blade, tissue nippers, and/or power dremel instrumentation by the physician of record - 36070 Progress Notes * Allen MARTIN RDOB:1960 (64 yo M)Acc No.[id number]:09/03/2024 Progress Note Patient:?Allen MARTIN R Provider:?Sera Stratton DPM :1960???Age:64 Y???Sex:Male Jerald e:09/03/2024 Address:[address] [place], [place] [id number] Pcp:Jordi Crandall MD Subjective: * Chief Complaints: * ???Skin problem(s)Toe Irrita tionAt Risk FootcarePossible Infection * HPI: ???At Risk footcare:?Pt States Last PCP Visit:?Date?04/03/2024 ???Skin problems:?Nature:?dryness , scaling.?Location:?B/L .?Duration:?several days.?Course:?worse.?Toe pain:?Location:?B/L feet.?Duration:?several years.?Course:?worse.?Aggravated by:?shoes, any pressure.?Treatments:?states delivery pending.? * ROS:?General/Constitutional:?Nausea?denies.?Vomiting?denies.?Hunger Thirst?denies.?Loss appetite?denies.?Chills?denies.?Fatigue?denies.?Fever?denies.?Night Sweats?denies.?Unexplained weight loss?denies.?Unexplained weight gain?denies.?HEENTM:?Dentures?denies.?Dizziness?denies.?Glasses/contacts?admits.?Retinopathy?den ies.?Blurred/double vision?denies.?TMJ?denies.?Discharge/drainage?denies.?Implants?denies.?Sore throat?denies.?Dental implants?denies.?Hard of hearing ?admits.?Difficulty chewing/swallowing/speaking?denies.?Nose bleeds?denies.?Sore mouth?denies.?Respiratory:?On O xygen?denies.?Pneumonia/pleurisy?denies.?Bronchitis?denies.?Emphysema?denies.?Co ughing?denies.?Cough blood?denies.?Shortness [...] than smoking?Are you an other tobacco user??No ???Miscellaneous:?Caffeine: yes, frequency:. ?Children: yes, 2. ?Exercise: no. ?Marital status: single. ?Occupation: Disabled. * Medications:?TakingValsartan 160 MG Tablet 1 tablet Orally Once a day hydroCHLOROthiazide 50 MG Tablet 1 tablet in the morning Orally Once a day Atorvastatin Calcium 10 MG Tablet 1 tablet Orally Once a day Atenolol 50 MG Tablet 1 tablet Orally Once a day metFORMIN HCl ER 500 MG Tablet Extended Release 24 Hour 1 tablet with evening meal Orally Once a day Ibuprofen 800 MG Tablet 1 tablet with food or milk as needed Orally every 8 hrs hydroCHLOROthiazide 50 MG Tablet Oral Ibuprofen 800 MG Tablet TAKE 1 TABLET BY MOUTH 3 TIMES A DAY NEEDED FOR PAIN FOR 30 DAYS Oral metFORMIN HCl Ammonium Lactate 12 % Cream 1 application Externally to affected areas of dry skin to feet except for between the toes Twice a day Extra Depth Orthopedic Shoes (1 Pair) with Customized Heat Molded Multidensity Innersoles (3 Pair) as directed Dx: NIDDM/Polyneuropathy (E11.42), Hammertoe Foot Deformity (M20.41,M20.42), Preulcerative Skin Lesion(s) (L85.1 Taking Valsartan 160 MG Tablet 1 tablet Orally Once a day Taking hydroCHLOROthiazide 50 MG Tablet 1 tablet in the morning Orally Once a day Taking Atorvastatin Calcium 10 MG Tablet 1 tablet Orally Once a day Taking Atenolol 50 MG Tablet 1 tablet Orally Once a day Taking metFORMIN HCl ER 500 MG Tablet Extended Release 24 Hour 1 tablet with evening meal Orally Once a day Taking Ibuprofen 800 MG Tablet 1 tablet with food or milk as needed Orally every 8 hrs Taking hydroCHLOROthiazide 50 MG Tablet Oral Taking Ibuprofen 800 MG Tablet TAKE 1 TABLET BY MOUTH 3 TIMES A DAY NEEDED FOR PAIN FOR 30 DAYS Oral Taking metFORMIN HCl Taking Ammonium Lactate 12 % Cream 1 application Externally to affected areas of dry skin to feet except for between the toes Twice a day Taking Extra Depth Orthopedic Shoes (1 Pair) with Customized Heat Molded Multidensity Innersoles (3 Pair) as directed Dx: NIDDM/Polyneuropathy (E11.42), Hammertoe Foot Deformity (M20.41,M20.42), Preulcerative Skin Lesion(s) (L85.1 Not-Taking/PRNChlorhexidine Gluconate 0.12 % Solution Mouth/Throat Valsartan 160 MG Tablet Oral Medication List reviewed and reconciled with the patientNot- Taking/PRN Chlorhexidine Gluconate 0.12 % Solution Mouth/Throat Not-Taking/PRN Valsartan 160 MG Tablet Oral Medication List reviewed and reconciled with the patient * Allergies:?N.K.D.A.yes[Aller gies Verified] Objective: * Vitals:?Ht: 5na15aw, Wt:227, BMI:31.66, Shoe size: 10.5-11, BP:149/65mm Hg, BS: 94, Ht-cm: 180.34 cm, Wt-k.97 kg. * ???Past Orders: ???Lab:HEMOGLOBIN A1C (GLYCO HEMOGLOBIN) (Order Date - 07/02/2024) (Collection Date & Time - 07/02/2024 08:54 AM) ? Value Reference Range ?HEMOGLOBIN A1C % (HH) 6.2 * Examination: ???Ophthalmology Referral: ?DIABETES EYE EXAM?Procedure Performed:?Yes ?Date of Exam Performed?12/31/2023 ?Findings of Diabetic Eye Exam:?retinopathy?General Examination: ?GENERAL APPEARANCE:?Reveals a pleasant, alert, well nourished, well- developed, well hydrated individual, who demonstrates proper attention to hygiene/body habitus, and is in no acute distress, Pt serves as own historian for office visit today, Pt accompanied by Sister/Cooler Room Worker , who serves as, additional Historian, and/who is physically present in exam room at time of visit , Denies fever, chills, malaise, lymphadenopathy.?ORIENTED:?person, place, and time.?FOOT EXAM:?Lower Extremity Neurological Exam performed:?Yes ?Visual exam of foot performed:?Yes ?Date?09/03/2024 ?Footwear Evaluation?Footwear Evaluation performed:?Yes?Neurological: ?SENSORY:? Neurological exam demonstrates, reduced light touch [...] gear properties exacerbate patient's foot/toe deformity.?Vascular: ?DP PULSES (B):?3/4, B/L.?PT PULSES (B):?3/4, B/L.?CAPILLARY FILL TIME:?immediate, all digits, B/L.?TROPHIC CONDITION-TEXTURE/ELASTICITY/TURGOR/HAIR GROWTH (B):?normal, B/L.?TEMPERTURE GRADIENT (C):?normal, warm to cool, proximal to distal, B/L, B/L.?PIGMENTATION:?normal, B/L.?EDEMA (C):?absent, B/L.?CLAUDICATION (C):?denies, B/L.?VARICOSITIES:?present, moderate, nonpainful, B/L.?Abscess/infected nail: ?INSPECTION?Reveals nail incurvation, pain on palpation, groove laceration, inflammation, malodor, localized cellulitis, and purulent abscess with pre- operative size of approximately ( 1-2 ) mm square without exposed bone, T3.? Assessment: * Assessment: 1.?Other hammer toe(s) (acqu ired), right foot - M20.41 (Primary)???2.?Xerosis of skin - L85.3???Specify :Acute problem, Uncomplicated (3),Rx Management (4)???3.?Other hammer toe(s) (acquired), left foot - M20.42???4. Type 2 diabetes mellitus with diabetic polyneuropathy - E11.42???5.?Tinea unguium - B35.1???6.?Abscess of toe, left - L02.612??? Plan: * Treatment: 2.?Abscess of toe, left? Notes: Patient Educated with: WOUND CARE INSTRUCTIONS.pdf (WOUND CARE INSTRUCTIONS.pdf)?? * Procedures:?Debride Nail 6-10:?Nail debridement?Performance of this nail treatment by a nonprofessional would put this patients foot and overall health at risk. Therefore, debridement to affected nail(s), as described in exam, was performed extensively to reduce/remove overall nail length, girth, thickness, subungual debris, and necrotic tissue, by manual and/or electrical means through the use of a nail nipper and/or dremel-type grinder mill operator, to a more viable healthy nail plate [...] to maintain effectiveness in symptomatic relief - 80664.?I&D nail abscess:?Type?Single, Abscess.?Anesthesia?was deferred - NEUROPATHY: patient has medically documented neuropathic condition affecting sensation.?Location?Total nail, T3.?Procedure?Performed incision and drainage of Single Nail Abscess with use of sterile nail nipper/316 blade. Approximately ( 0.1 ) cc purulent fluid material was drained. The infected devitalized soft tissue was curettaged to healthy bleeding bed. Any affected nail portion was removed to the eponychium . Any evidence of granuloma was also removed at this time. No underlying bone was visualized. There was minimal bleeding as hemostasis was achieved through the temporary use of either a digital tournaquet or the aforementioned local with epinephrine. An application of sterile Bacitracin dressing was performed. Local wound care instructions were discussed and dispensed. Recommended Tylenol or Motrin for pain/discomfort (03952).?Keratoma Treatment:?Parring or Cutting of Benign Hyperkeratotic Lesion(s)?(-57) More than 4 Lesions - Due to the at risk nature of the patients medical condition as documented in the exam findings, performance of this keratoderma treatment is medically necessary as its management by an unskilled/untrained nonprofessional would put this patients foot and overall health at risk. Therefore, the benign hyperkeratotic lesions, ( 6 ) in total, locations as stated and described in the exam ( sub 1st metatarsal head B/L, plantar medial heels B/L, medial IPJ TA, T5?), were pared, and/or cut utilizing a sterile 15 blade, tissue nippers, and/or power dremel instrumentation by the physician of record - 49256.? * Procedure Codes:?63909 DRAIN AGE OF SKIN ABSCESS, Modifiers: XS , [id number] DEBRIDE NAIL, 6 OR MORE, Modifiers: XS 37428 TRIM SKIN LESIONS, OVER 4, Modifiers: XS * Preventive Medicine:? ??Counseling:?Discussion:?-13: Office or other outpatient visit for the evaluation and management of an established patient, which required a medically appropriate history and/or examination and LOW level of DECISION MAKING for: 1 STABLE ACUTE UNCOMPLICATED PROBLEM, 2 OR MORE MINOR PROBLEMS, OR 1 STABLE CHRONIC PROBLEM, THAT POSE(S) A LOW RISK FOR MORBIDITY/MORTALITY. The visit on the day of the [...] have encouraged the patient to call the office.?Shoe Gear Counseling:?Patient to obtain shoes hopefully soon.?Xerosis:?The patient was counseled on the diagnosis, potential [...] * Sign off status: Completed true * Provider:?Sera Stratton DPM Date:?10/2024 Generated for Nadya leonard/Yuliana/Rafita on:?09/24/2024 09:10 AM EDT History and Physical Notes * HPI (History of Present Illness) Category Sub-Category Detail Notes Category Not es Toe pain Location: B/L feet Duration: several years Course: worse Aggravated by: shoes, any pressure Treatments: states delivery pend ing Skin problems Nature: dryness , scaling Location: [...] for office visit today, Pt accompanied by Sister/Cooler Room Worker , who serves as, additional Historian, and/who is physically present in exam room at time of visit , Denies fever, chills, malaise, lymphadenopathy FOOT EXAM: Lower Extremity Neurological Exa m performed:: Yes Visual exam of foot performed:: Yes Date: 09/03/2024 ORIENTED: person, place, and t bella Footwear Evaluation Footwear Evaluation performe d:: Yes Ophthalmology Referral DIABETES EYE EXAM Procedure Perform ed:: Yes ?Date of Exam Performed: 12/31/2023 Findings of Diabetic Eye Exam:: retinopa thy Vascular DP PULSES (B): 3/4, B/L PT PULSES (B): 3/4, B/L CAPILLARY FILL TIME: immediate, all digi ts, B/L TEMPERTURE GRADIENT (C): normal, warm to cool, proximal to distal, B/L, B/L TROPHIC CONDITION-TEXTURE/ELASTICITY/TURGOR/HAIR GROWTH (B): normal, B/L EDEMA (C): absent, B/L VARICOSITIES: present, moderate, n onpainful, B/L CLAUDICATION (C): denies, B/L PIGMENTATION: normal, B/L Nails NAILS are: Elongated, overg rown, dystrophic, lytic, greater than 3mm thick, discolored and friable with crumbly malodorous subungual debris, with dull to no pain on palpation due to neuropathy T1, T2, T3, T4, T6, T7, T8, T9 Abscess/infected nail INSPECTION Reveals na il incurvation, pain on palpation, groove laceration, inflammation, malodor, localized cellulitis, and purulent abscess with pre-operative size of approximately ( 1-2 ) mm square without exposed bone, T3
--- OUTSIDE RECORDS SUMMARY | 2024-09-24 09:10 | XMS_ITS ---
Author Organization [facility] [address] [place] Address [address] [place] [address] Care Team Providers Care Leather Goods I Assembler Name Role Phone Jordi Crandall MD Primary Care Provider Kristina Davis Unavailable [phone] Allergies No Known Allergies REASON FOR VISIT [...] Polyneuropathy due to type 2 diabetes mellitus (207061141) Type 2 diabetes mellitus with diabetic polyneuropathy (E11.42) Active confirmed Vital Signs Height 0iv28tn in 06/04/2024 Weight 222 lbs 06/04/2024 BMI 30.96 kg/m2 06/04/2024 Blood pressure systolic 140 mm Hg 06/04/20 24 Blood pressure diastolic 60 mm Hg 024 Procedures Procedure Date Ordered Date Performed Result Body Sit e 34855-RPFOMAP NAIL, 6 OR MORE 06/04/2024 N/A 33553-EETZ SKIN LESIONS, OVER 4 06/04/2024 N/A Encounters Encounter Location Date Provider Diagnosis [facility] [place] [address] [place] [address] 06/04/2024 Kristina Munguiaaker Xerosis of skin L85.3 [...] INSTRUCTIONS.pdf) Pending Test Test Name Order Date 13352-DMTNSYS NAIL, 6 OR MORE 06/04/2024 68142-KJBJ SKIN LESIONS, OVER 4 06/04/20 24 Next Appt Details Follow Up: 3 Months, Reason: Provider Name:Kristina keene, 12/01/2024 09:00:00 AM, [address] [place] [address], [phone], Procedure Notes * Category Sub-Category Detail Notes [...] use of a nail nipper and/or dremel-type centerless grinder set up operator, to a more viable healthy nail [...] to maintain effectiveness in symptomatic relief - 40872 Keratoma Treatment Parring or Cutting o f Benign Hyperkeratotic Lesion(s) (-57) More than 4 Lesions - The Benign hyperkeratotic lesions, (5) in total, locations as stated and described in exam, were pared, and/or cut utilizing a sterile 15 blade, tissue nippers, and/or power dremel instrumentation - 46829 Progress Notes * Allen MARTIN RDOB:1960 (64 yo M)Acc No.[id number]:06/04/2024 Progress Notes Patient:?Allen MARTIN Provider:?Kristina Pandey DPM :1960???Age:64 Y???Sex:Male Jerald e:06/04/2024 Address:[address] , [id number] Pcp:Jordi Crandall MD Subjective: * Chief Complaints: [...] * Allergies:?N.K.D.A.yes[Aller gies Verified] Objective: * Vitals:?Ht: 7nv03rf, Wt:222, BMI:30.96, Shoe size: 10.5-11, BP:140/60mm Hg, [...] for office visit today, Pt accompanied by Sister/Optical Dispenser , who serves as, additional Historian, and/who is physically present in exam room at time of visit.?ORIENTED:?person, place, and time.?FOOT EXAM:?Lower Extremity Neurological Exam performed:?Yes ?Footwear Evaluation?Footwear Evaluation performed:?Yes?Neurological: ?SENSORY:? Neurological exam [...] B/L.?VARICOSITIES:?present, moderate, nonpainful, B/L.?Ophthalmology Referral: ?DIABETES EYE EXAM?Procedure Performed:?Yes ?Date of Exam Performed?12/31/2023 ?Findings of Diabetic Eye Exam:?retinopathy??? Assessment: * Assessment: 1.?Xerosis of skin - [...] 3.?Type 2 diabetes mellitus with diabetic polyneuropathy?Procedure: 16686-FCBLLNX NAIL, 6 OR MORE ?Procedure: 66750-YWGL SKIN LESIONS, OVER 4 * Procedures:?Debride Nail [...] use of a nail nipper and/or dremel-type centerless grinder set up operator, to a more viable healthy nail [...] to maintain effectiveness in symptomatic relief - 85341.?Keratoma Treatment:?Parring or Cutting of Benign Hyperkeratotic Lesion(s)?(-57) More than 4 Lesions - The Benign hyperkeratotic lesions, (5) in total, locations as stated and described in exam, were pared, and/or cut utilizing a sterile 15 blade, tissue nippers, and/or power dremel instrumentation - 57156.? * Procedure Codes:?94201 DEBRI DE NAIL, 6 OR MORE, Modifiers: XS 33557 TRIM SKIN LESIONS, OVER 4, Modifiers: XS [...] status: Completed true * Provider:?Kristina Pandey DPM Date:?1 08/05/2023 Generated for Nadya leonard/Yuliana/Rafita on:?09/24/2024 09:09 AM EDT History and Physical Notes * [...] for office visit today, Pt accompanied by Sister/Optical Dispenser , who serves as, additional Historian, and/who is physically present in exam room at time of visit FOOT EXAM: Lower Extremity Neurological Exa m performed:: Yes ORIENTED: person, place, and t belal Footwear Evaluation Footwear Evaluation performe d:: Yes [...]
--- OUTSIDE RECORDS SUMMARY | 2024-09-24 09:10 | XMS_ITS ---
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 Name Role Phone Jordi Crandall MD Primary Care Provider Kristina Davis Unavailable [phone] Sera Stratton Unavailable [phone] Medications Medication SIG (Take, Route, Frequency, Duration) [...] 07/15/2024 Encounters Encounter Location Date Provider Diagnosis [facility] [address] [place] [address] 07/15/2024 Sera tSratton Plan Of Treatment Next Appt Details Provider Name:Kristina keene, 12/01/2024 09:00:00 AM, [address] [place], [address], Progress Notes * Allen MARTIN RDOB:1960 (64 yo M)Acc No.[id number]:07/15/2024 Progress Notes Patient:?Allen MARTIN Provider:?Sera Stratton DPM :1960???Age:64 Y???Sex:Male Jerald e:07/15/2024 Address:[address] [place], [place] [id number] Pcp:Jordi Crandall MD Subjective: * Chief Complaints: * ??? * ROS:?General/Constitutional:?Nausea?denies.?Vomiting?denies.?Hunger Thirst?denies.?Loss appetite?denies.?Chills?denies.?Fatigue?denies.?Fever?denies.?Night Sweats?denies.?Unexplained weight loss?denies.?Unexplained weight gain?denies.?HEENTM:?Dentures?denies.?Dizziness?denies.?Glasses/contacts?admits.?Retinopathy?de nies.?Blurred/double vision?denies.?TMJ?denies.?Discharge/drainage?denies.?Implants?denies.?Sore throat?denies.?Dental implants?denies.?Hard of hearing ?admits.?Difficulty chewing/swallowing/speaking?denies.?Nose bleeds?denies.?Sore mouth?denies.?Respiratory:?On Oxygen?denies.?Pneumonia/pleurisy?denies.?Bronchitis?denies.?Emphysema?denies.?C oughing?denies.?Cough blood?denies.?Shortness of breath?denies.?Wheezing?denies.?Cardiovascular:?Pacemaker?denies.?MVP?denies.?WPW?denies.?CHF?denies.?Heart attack?denies.?Septal defect?denies.?Rapid beat?denies.?Chest pain ?denies.?Atrial Fib.?denies.?Murmur/Palpitations?denies.?Gastrointestinal:?Hemorrhoids?denies.?Stomach/Abdominal pain?denies.?Dark blood stool?denies.?Irritable bowel ?denies.?Constipation?denies.?Diarrhea?denies.?Hematology:?Swelling?denies.?Clots?denies.?Varicose Veins?denies.?Bruising?denies.?Bleeding problem?denies.?Genitourinary:?Blood urine?denies.?Frequent/Painfu/urination/bladder control?denies.?Kidney stones?denies.?Infection (UTI)?denies.?Nephropathy?denies.?sex trans dis (STD)?denies.?Prostate?denies.?Musculoskeletal:?Hammertoes?denies.?Bunions?denies.?Back Pain?denies.?Muscle Cramps/ Resting?denies.?Muscle cramps / walking?denies.?Generalized aches and pains?denies.?Weakness?denies.?Integ.:?Zamora?denies.?Scars?denies.?Corns/calluses?denies.?Ingrown nails?denies.?Painful nails?denies.?Open Sores?denies.?Rashes?denies.?Neurologic:?Difficulty sleeping?denies.?Brain disorder?denies.?Numbness?denies.?Balance trouble?denies.?Confusion?denies.?Fainting/blackouts?denies.?Tingling?denies.?Tr emors?denies.? * Medical History:?Arthritis, Diabetic, High Blood Pressure, Cerebral palsy, High Cholesterol. * Family History:?Mother: dece ased, high blood pressure, diagnosed with Family history of arthritis, Unspecified essential hypertension, Other malignant neoplasm of unspecified site.?Father: , high blood pressure, diagnosed with Diabetic - NIDDM, Unspecified essential hypertension.?Siblings: high blood pressure, diagnosed with Unspecified essential hypertension.? * Social History:?Tobacco Use:?Tobacco Use/Smoking?Are you a:?nonsmoker ?Additional Findings: Tobacco Non-User?Current non-smoker ?Tobacco use other than smoking?Are you an other tobacco user??No ???Drugs/Alcohol:?Drugs?Have you used drugs other than those for medical reasons in the past 12 months??No ?Alcohol Screen?Did you have a drink containing alcohol in the past year??No ?Points?0 ?Interpretation?Negative ???Miscellaneous:?Caffeine: yes, frequency:. ?Children: yes, 2. ?Exercise: no. ?Marital status: single. * Medications:?Taking Valsarta n 160 MG Tablet 1 tablet Orally Once [...] needed Orally every 8 hrs Objective: * Vitals:?Ht: 5ft 11in, Shoe s ize: 10.5, Ht-cm: 180.34 cm. Assessment: Plan: * Treatment: * Images: * The named appointment provid er may or may not be the originator of this progress note, and it is not deemed complete until electronically signed by the appointment provider. Sign off status: Pending * Provider:?Sera Stratton DPM Date:? Generated for Nadya leonard/Yuliana/Rafita on:?09/24/2024 09:10 AM EDT
[2024-09-24 09:13] VITALS: BP 130/60
== END 2024-09-24 09:35 | disposition home or self-care (01) ==
LOC: HO.HMCFM 08:41
PROVIDERS: PCP Family Medicine; Visit Provider Family Medicine
DX: E11.9 Type 2 diabetes mellitus without complications (principal)

== ENCOUNTER → 2024-09-24 08:41 | Outpatient (BNVA) | payer OTHER, SELFPAY | PROVIDERS: PCP Family Medicine; Visit Provider Family Medicine | DX: Z00.00 Encounter for general adult medical examination without abnormal findings (principal); E11.9 Type 2 diabetes mellitus without complications; I10 Essential (primary) hypertension | CPT/HCPCS: 83036; 96127; 99396 ==

== ENCOUNTER 2024-12-29 09:25 | Outpatient (AMB) | payer OTHER, SELFPAY ==
--- OUTSIDE RECORDS SUMMARY | 2024-07-15 05:30 | XMS_ITS ---
Author Organization [facility] Address [address] [place] [address] Care Team Providers Care Crusher Machine Operator Name Role Phone Jordi Crandall MD Primary Care Provider Kristina Davis Unavailable [phone] Sera [place] Unavailable [phone] Medications Medication SIG (Take, Route, Frequency, Duration) Notes Start Date End Date Status metFORMIN HCl ER 500 MG 1 tablet with ev ening meal Orally Once a day Active Atenolol 50 MG 1 tablet Orally Once a day Active Atorvastatin Calcium 10 MG 1 tablet Oral ly Once a day Active hydroCHLOROthiazide 50 MG 1 tablet in th e morning Orally Once a day Active Valsartan 160 MG 1 tablet Orally Once a day Active Ibuprofen 800 MG 1 tablet with food o r milk as needed Orally every 8 hrs Active Social History Tobacco Use: Social History [...] Are you an other tobacco user? No Vital Signs Height 5ft 11in in 07/15/2024 Encounters Encounter Location Date Provider Diagnosis [facility] [address] [place] [address] 07/15/2024 Sera [place] Plan Of Treatment Next Appt Details Provider Name:Kristina keene, 03/18/2025 09:15:00 AM, [address] [place], [address], Progress Notes * Allen MARTIN RDOB:1960 (64 yo M)Acc No.[id number]:07/15/2024 Progress Notes Patient: Allen GAMBINO Provider: Tova [place] DPM :1960 A ge:64 Y S ex:Male Date:07/15/2024 Address:[address] [place], [place] [id number] Pcp:Jordi Crandall MD Subjective: * Chief Complaints: * * ROS: G eneral/Constitutional: Nausea d enies. V omiting d enies. H mariela Thirst d enies. L oss appetite d enies. C hills d enies. F atigue d enies.?Fever d enies. N ight Sweats d enies. U nexplained weight loss d enies. U nexplained weight gain d enies. H EENTM: Dentures d enies. D izziness d enies. G lasses/contacts a dmits. R etinopathy d enies. B lurred/double vision d enies. T MJ?denies. D ischarge/drainage d enies. I mplants d enies. S ore throat d enies. D ental implants d enies. H ayaz of hearing a dmits. D ifficulty chewing/swallowing/speaking d enies. N ose bleeds d enies. S ore mouth d enies. ? R espiratory: On Oxygen d enies. P neumonia/pleurisy d enies.?Bronchitis d enies. E mphysema d enies. C oughing d enies. C ough blood?denies. S hortness of breath d enies. W heezing d enies. C ardiovascular: Pacemaker d enies. M CHIEF ANALYTICS OFFICER d enies. W PW d enies. C HF d enies. H eart attack d enies. S eptal defect d enies. R apid beat d enies. C hest pain d enies. A trial Fib. d enies. M urmur/Palpitations d enies. G astrointestinal: Hemorrhoids d enies. S tomach/Abdominal pain d enies. D ark blood stool d enies. I rritable bowel d enies. C onstipation d enies. D iarrhea d enies. H ematology: Swelling d enies. C lots d enies. V aricose Veins d enies. B ruising d enies. B leeding problem d enies. G enitourinary: Blood urine d enies. F requent/Painfu/urination/bladder control d enies. K idney stones d enies. I nfection (UTI) d enies. N ephropathy d enies. s ex trans dis (STD) d enies. P rostate d enies. M usculoskeletal: Hammertoes d enies. B unions d enies. B ack Pain d enies. M uscle Cramps/ Resting d enies. M uscle cramps / walking d enies.?Generalized aches and pains d enies. W eakness d enies. I nteg.: Zamora d enies. S cars d enies. C orns/calluses?denies. I ngrown nails d enies. P ainful nails d enies. O pen Sores d enies. R ashes d enies. N eurologic: Difficulty sleeping d enies. B rain disorder d enies. N umbness d enies. B alance trouble d enies. C onfusion d enies. F ainting/blackouts d enies. T ingling d enies. T remors d enies. * Medical History: A rthritis, Diabetic, High Blood Pressure, Cerebral palsy, High Cholesterol. * Family History: M other: , high blood pressure, diagnosed with Family history of arthritis, Unspecified essential hypertension, Other malignant neoplasm of unspecified site. F ather: , high blood pressure, diagnosed with Diabetic - NIDDM, Unspecified essential hypertension. S iblings: high blood pressure, diagnosed with Unspecified essential hypertension. * Social History: T obacco Use: T obacco Use/Smoking A re you a: n onsmoker A dditional Findings: Tobacco Non-User C urrent non-smoker Tobacco use other than smoking A re you an other tobacco user? N o D rugs/Alcohol: D rugs H ave you used drugs other than those for medical reasons in the past 12 months? N o Alcohol Screen D id you have a drink containing alcohol in the past year? N o P oints 0 I nterpretation N egative M iscellaneous: C affeine: yes, frequency:. Children: yes, 2. Exercise: no. Marital status: single. * Medications: T aking Valsartan 160 MG Tablet 1 tablet Orally Once a day , Taking hydroCHLOROthiazide 50 MG Tablet 1 tablet in the morning Orally Once a day , Taking Atorvastatin Calcium 10 MG Tablet 1 tablet Orally Once a day , Taking Atenolol 50 MG Tablet 1 tablet Orally Once a day , Taking metFORMIN HCl ER 500 MG Tablet Extended Release 24 Hour 1 tablet with evening meal Orally Once a day , Taking Ibuprofen 800 MG Tablet 1 tablet with food or milk as needed Orally every 8 hrs Objective: * Vitals: H t: 5ft 11in, Shoe size: 10.5, Ht-cm: 180.34 cm. Assessment: Plan: * Treatment: * Images: * The named appointment provid er may or may not be the originator of this progress note, and it is not deemed complete until electronically signed by the appointment provider. Sign off status: Pending * Provider: Tova [place] DPM Date: 0 07/15/2024 Generated for Nadya leonard/Yuliana/Rafita on: 0 12/29/2024 09:44 AM EDT
--- NOTE | 2024-12-29 09:35 | MHC.PC.OV ---
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 Allergies No Known Allergies (No Known Allergies*) Allergy (Verified 12/29/24 09:36) Medication List - Last Reconciled 12/29/24 by Jordi Crandall MD atenolol 50 mg PO DAILY atorvastatin 10 mg PO DAILY blood sugar diagnostic (FreeStyle Lite Strips) glucose monitoring 2 times a day; blood-glucose meter (FreeStyle Lite Meter kit) DX: E11.9, test blood sugar 2 times a day, duration 999 days cane Quad-Cane daily As directed, 999 days/Lifetime FreeStyle Lancets (lancets) 28 gauge topical TID NS hydrochlorothiazide 50 mg PO DAILY ibuprofen 800 mg PO TID PRN 30 days metformin ER 500 mg PO DAILY valsartan 240 mg (1.5 x 160 mg) PO DAILY 30 days Tobacco use date assessed: 09/24/24 Dental Screening Dental Screen Date: 09/24/24 HPI f/u HTN, DM HPI Details 64 y/o male presents to f/u HTN, diabetes. Last A1c 09/24/24 6.3%. A1c today 6.2%. He is on metformin 500mg daily. BP today 130/68, 51p. He is on atenolol 50mg, HCTZ 50mg, valsartan 240mg daily. They report hearing changes. [facility] Medical History Moderate intellectual disabilities Surgical History History of tooth extraction Family History Father HTN (hypertension) Hyperlipidemia Lymphoma Mother HTN (hypertension) Cancer Brother No problems noted. Brother Afib Obesity Heart attack Brother No problems noted. Brother No problems noted. Brother No problems noted. Sister No problems noted. Sister No problems noted. Social History Household Members: Family Household Members Other:: Brother, Marcus Housing: House Alcohol intake: never Patient Tobacco Use Status: Never used Tobacco e-Cigarette/Vaping Use: Never Used Second Hand Smoke Exposure: No service: No Current occupational status: disabled Current occupational exposures/hazards: No Sexual orientation: Unable to collect Gender identity: Unable to collect Cognitive needs: Yes Hearing needs: Yes Vision needs: No Questionnaire Thrive Questionnaire Date Thrive assessed: 09/17/24 I am a: Parent/Caregiver What is your living situation today?: I have a steady place to live Within the past 12 months, did the food you bought not last and you didn't have the money to get more?: Never true Within the past 12 months, did you worry whether your food would run out before you got money to buy more?: Never true Do you have trouble paying for medicines?: No Do you have trouble getting transportation to medical appointments?: No Do you have trouble paying your heating and electricity bill?: No Do you have trouble taking care of your child, family member or friend?: No Do you have trouble with day-to-day activities such as bathing, preparing meals, shopping, managing finances, etc.?: No Are you currently unemployed and looking for a job?: No Are you interested in more education?: No Please select the resources that you would like help with: None Currently or been in a relationship where the following occur: I choose not to answer THRIVE Score: 0 AUDIT C Alcohol Use Questionnaire (AUDIT-C) 3. How often do you have six or more drinks on one occasion?: Never Total Score: 0 SARAI-7 AMB Questionnaire SARAI-7 Date SARAI - 7 assessed: 09/24/24 Source: Developed by Drs. Aniket Liu, Lay Owens, Wilfrido Garza and colleagues, with an educational martín from [employer]. Review of Systems Const Denies chills, Denies fatigue, Denies fever(s), Denies headache(s) and Denies weakness ENT Denies dizziness and Denies headache(s) Card Denies dyspnea Resp Denies cough, Denies dyspnea, Denies wheezing and Denies other (shortness of breath) Musc Denies numbness and Denies tingling Neuro Denies dizziness, Denies headache(s), Denies numbness, Denies tingling and Denies weakness Psych Denies anxiety and Denies depression Endo Denies fatigue Aller/Immun Denies wheezing Physical exam (Primary Care) Vital Signs: Last Vital Signs Temp 98.0 F 12/29/24 09:37 Pulse 51 12/29/24 09:37 Resp 14 12/29/24 09:37 BP 130/68 12/29/24 09:37 Pulse Ox 96 12/29/24 09:37 Oxygen Delivery Method Room Air 12/29/24 09:37 BMI result Body Mass Index 32.6 Tobacco/Smoking Status: Tobacco use Status Tobacco use date assessed 09/24/24 12/29/24 09:40 Patient Tobacco Use Status Never used Tobacco 12/29/24 09:40 e-Cigarette/Vaping Use Never Used 12/29/24 09:40 Thrive Assessment: Date of Thrive Assessment Date Thrive assessed 09/17/24 12/29/24 09:40 Currently or been in a relationship where the following occur: I choose not to answer Const General: well developed; No acute distress Nutritional Appearance: well nourished Orientation/consciousness: patient oriented x3 HENMT Head: Yes normocephalic and Yes atraumatic Eyes General: appearance normal, both eyes and all related structures Pupils: Equal, round and reactive pupils present EOM: EOMs intact bilaterally Resp Effort & Inspection: normal respiratory effort Auscultation: clear to auscultation bilaterally Cardio Rate: regular rate Rhythm: regular rhythm Heart sounds: S1 normal heart sound present, S2 normal heart sound present, no gallops, no murmurs and no rubs Neuro General: patient oriented x3 and gait normal Cranial nerves: Yes Equal, round and reactive pupils present Psych Affect: normal affect Coding Level of Care Code Est Pt Level 3 (03855) Diagnoses Essential (primary) hypertension I10 Diabetes type 2, controlled E11.9 Hearing loss H91.90 Assessment & Plan Assessment & Plan (1) Essential (primary) hypertension: Code(s): I10 - Essential (primary) hypertension Category: Medical Plan: Blood?pressure?is?controlled.??Goal?is?less?than?140/90 Continue?current?medications (2) Diabetes type 2, controlled: Code(s): E11.9 - Type 2 diabetes mellitus without complications Category: Medical Plan: A1c?6.2%.??Goal?is?less?than?7% Continue?current?medication Work?at?diabetic?diet Has?eye?exam?tomorrow. (3) Hearing loss: Code(s): H91.90 - Unspecified hearing loss, unspecified ear Category: Medical Plan: His?family?member?at?office?today?says?he?would?not?use?amplification Declines?referral?to?ENT They?can?let?me?know?if?anything?changes. Orders: Orders Microalbumin, Random (w Creat) Today I10 - Essential (primary) hypertension Basic Metabolic Panel Today I10 - Essential (primary) hypertension, Z00.00 - Encounter for general adult medical examination without abnormal findings UA CC w/rflx Micro + Cult Today I10 - Essential (primary) hypertension, Z00.00 - Encounter for general adult medical examination without abnormal findings
[2024-12-29 09:37] VITALS: BP 130/68; PULSE 51; RESP 14; TEMP 36.7; O2SAT 96; BMI 32.6
== END 2024-12-29 09:53 | disposition home or self-care (01) ==
LOC: HO.HMCFM 09:26
PROVIDERS: PCP Family Medicine; Visit Provider Family Medicine
DX: I10 Essential (primary) hypertension (principal); E11.9 Type 2 diabetes mellitus without complications; H91.90 Unspecified hearing loss, unspecified ear

== ENCOUNTER → 2024-12-29 09:25 | Outpatient (BNVA) | payer OTHER, SELFPAY | PROVIDERS: PCP Family Medicine; Visit Provider Family Medicine | DX: E11.9 Type 2 diabetes mellitus without complications (principal); I10 Essential (primary) hypertension; H91.90 Unspecified hearing loss, unspecified ear | CPT/HCPCS: 99212 ==

== ENCOUNTER 2025-04-20 07:37 | Outpatient (REF) | payer OTHER, SELFPAY ==
--- OUTSIDE RECORDS SUMMARY | 2024-07-15 05:30 | XMS_ITS ---
Author Organization [facility] Address [address] [place] [address] Care Team Providers Care Cut To Length Operator Name Role Phone Jordi Crandall MD Primary Care Provider Kristina Davis Unavailable [phone] Sera [place] Unavailable [phone] Medications Medication SIG (Take, Route, Frequency, Duration) [...] 07/15/2024 Encounters Encounter Location Date Provider Diagnosis [facility] [address] [place] [address] 07/15/2024 Sera [place] Plan Of Treatment Next Appt Details Provider Name:Kristina keene, 06/04/2025 08:30:00 AM, [address] [place], [address], Progress Notes * Allen MARTIN RDOB:1960 (65 yo M)Acc No.[id number]:07/15/2024 Progress Notes Patient: Allen GAMBINO Provider: Tova [place] DPM :1960 A ge:64 Y S ex:Male Date:07/15/2024 Address:[address] [place], [place] [id number] Pcp:Jordi Crandall MD Subjective: * Chief Complaints: [...] enies. C ardiovascular: Pacemaker d enies. M CHANGE OF ADDRESS CLERK d enies. W PW d enies. C [...] 0 07/15/2024 Generated for Nadya leonard/Yuliana/Rafita on: 07:40 AM EDT
--- OUTSIDE RECORDS SUMMARY | 2025-04-20 07:40 | XMS_ITS | Patient Health Record ---
Author Organization [facility] Address [address] [place] [address] Care Team Providers Care Exhibits Manager Name Role Phone Jordi Crandall MD Primary Care Provider Kristina Davis Unavailable [phone] ChayitoDarenen Unavailable [phone] Allergies No Known Allergies Results Component Value Reference Range Notes HEMOGLOBIN A1C (GLYCOHEMOGLO BIN) Reviewed date:09/03/2024 08:55:27 AM Interpretation: Performing Lab: Notes/Report: HEMOGLOBIN A1C % (HH) 6.2 HEMOGLOBIN A1C (GLYCOHEMOGLO BIN) Reviewed date:12/01/2024 08:47:07 AM Interpretation: Performing Lab: Notes/Report: HEMOGLOBIN A1C % (HH) 6.3 Reason For Referral No Information Medications Medication SIG (Take, Route, Frequency, Duration) Notes Start Date End Date Status Ibuprofen 800 MG TAKE 1 TABLET BY MOUTH 3 TIMES A DAY NEEDED FOR PAIN FOR 30 DAYS Oral; Duration: 30 Days Not-Taking Valsartan 240mg Active Chlorhexidine Gluconate 0.12 % Mouth/Throat; Duration: 30 Days Not-Taking Atorvastatin Calcium 10 MG 1 tablet Oral ly Once a day Active Valsartan 160 MG Oral; Duration: 30 Days Not-Taking Atenolol 50 MG 1 tablet Orally Once a day Active Extra Depth Orthopedic Shoes (1 Pair) with Customized Heat Molded Multidensity Innersoles (3 Pair) as directed Dx: NIDDM/Polyneuropathy (E11.42), Hammertoe Foot Deformity (M20.41,M20.42), Preulcerative Skin Lesion(s) (L85.1 06/04/2024 Active Ammonium Lactate 12 % 1 application Externally to affected areas of dry skin to feet except for between the toes Twice a day; Duration: 30 days Active hydroCHLOROthiazide 50 MG 1 tablet in th e morning Orally Once a day Not-Taking metFORMIN HCl ER 500 MG 1 tablet with ev ening meal Orally Once a day Active Ibuprofen 800 MG 1 tablet with food o r milk as needed Orally every 8 hrs Active hydroCHLOROthiazide 50 MG Oral; Duration : 90 Days Not-Taking metFORMIN HCl 06/04/2024 Not-T aking Immunizations Vaccine Route Administration Date Status Comme nts Influenza Unknown 04/01/2024 Administered Social History Tobacco Use: Social History Observation Description Date Details (start date - stop date) Never Smoker NA - NA Tobacco use other than smoking: Question Answer Notes Are you an other tobacco user? No Tobacco Control (Standard) Question Answer Notes Tobacco use: Nonsmoker Additional Findings: Tobacco non-user Current no nsmoker AUDIT-C (Standard) Question Answer Notes Did you have a drink containing alcohol in the p ast year? No Points 0 Interpretation Negative Problems Problem Type SNOMED Code ICD Code Onset Dates Problem Status W/U Status Risk Notes Problem Acquired hammer toe of right foot (6778971549740955 ) Other hammer toe(s) (acquired), right foot (M20.41) Active confirmed Response to treatment, Improvemen t Problem Acquired hammer toe of left foot (1462630936968729 ) Other hammer toe(s) (acquired), left foot (M20.42) Active confirmed Response to treatment, Improvemen t Problem Polyneuropathy due to type 2 diabetes mellitus (602838143) Type 2 diabetes mellitus with diabetic polyneuropathy (E11.42) Active confirmed Vital Signs Blood pressure diastolic 70 mm Hg 03/18/2025 Height [id number] in 03/18/2025 Blood pressure systolic 130 mm Hg 03/18/2025 Weight 230 lbs 03/18/2025 BMI 32.07 kg/m2 03/18/2025 Procedures Procedure Date Ordered Date Performed Result Body Sit e 83482-LWPRAXO NAIL, 6 OR MORE 06/04/2024 N/A 83474-KQQJ SKIN LESIONS, OVER 4 06/04/2024 N/A Encounters Encounter Location Date Provider Diagnosis [facility] [place] [address] [place] [address] 06/04/2024 Kristina Pandey Xerosis of skin L85.3 ; Other hammer toe(s) (acquired), right foot M20.41 ; Other hammer toe(s) (acquired), left foot M20.42 ; Type 2 diabetes mellitus with diabetic polyneuropathy E11.42 and Tinea unguium B35.[address] [address] 09/03/2024 Sera Stratton Xerosis of skin L85. 3 ; Other hammer toe(s) (acquired), right foot M20.41 ; Other hammer toe(s) (acquired), left foot M20.42 ; Type 2 diabetes mellitus with diabetic polyneuropathy E11.42 ; Tinea unguium B35.1 and Abscess of toe, left L02.[address] [address] 12/01/2024 Kristina Pandey Other hammer toe(s) (acquired), right foot M20.41 ; Type 2 diabetes mellitus with diabetic polyneuropathy E11.42 ; Other hammer toe(s) (acquired), left foot M20.42 and Tinea unguium B35.[address] [address] 03/18/2025 Krsitina Pandey Type 2 diabetes mellitus with diabetic polyneuropathy E11.42 and Tinea unguium B35.1 Assessments Encounter Date Diagnosis (ICD Code) Assessment Notes Treatment Notes Treatment Clinical Notes Section Notes 06/04/2024 Xerosis of skin (ICD-10 - L85.3) 09/03/2024 Other hammer toe(s) (acquired), right foot (ICD-10 - M20.41) 09/03/2024 Xerosis of skin (ICD-10 - L85.3) 12/01/2024 Other hammer toe(s) (acquired), right foot (ICD-10 - M20.41) Response to treatment,Impro vement 12/01/2024 Type 2 diabetes mellitus with diabetic polyneuropathy (ICD-10 - E11.42) 03/18/2025 Type 2 diabetes mellitus with diabetic polyneuropathy (ICD-10 - E11.42) 03/18/2025 Tinea unguium (ICD-10 - B35.1) 12/01/2024 Other hammer toe(s) (acquired), left foot (ICD-10 - M20.42) Response to treatment,Impro vement 09/03/2024 Other hammer toe(s) (acquired), left foot [...] mellitus with diabetic polyneuropathy (ICD-10 - E11.42) 12/01/2024 Tinea unguium (ICD-10 - B35.1) 09/03/2024 Tinea unguium (ICD-10 - B35.1) 06/04/2024 Tinea unguium (ICD-10 - B35.1) 09/03/2024 Abscess of toe, left (ICD-10 - L02.612) Patient Educated with: WOUND CARE INSTRUCTIONS. pdf (WOUND CARE INSTRUCTIONS. pdf) Plan Of Treatment Pending Test Test Name Order Date [id number] NAIL, 6 OR MORE 06/04/2024 96814-EBVB SKIN LESIONS, OVER 4 06/04/20 24 Next Appt Details Provider Name:Kristina Georgette keene, 06/04/2025 08:30:00 AM, [address] [place], [address], Insurance Providers Payer Name Payer Address Payer Phone Subscriber Number Group Number Insured Name Patient Relationship to Insured Coverage Start Date Coverage End Date [facility] [employer] Claims [address] [place] [address] [id number] Allen Sidhu Self - patient is the insured Medical (General) History Medical History History ICD Code Arthritis Diabetic High Blood Pressure Cerebral palsy High Cholesterol Surgical History Surgery Date(Month/Year) tooth removal 05/06/24
[2025-04-20 08:30] LABS: Appearance Urine Clear; Glucose Urine UA Negative (Negative); PH 6.5 (5.0-9.0); Specific Gravity - Urine 1.020 (1.005-1.025)
[2025-04-20 08:54] LABS: Alanine Aminotransferase 34 U/L (0-40); Albumin Level 4.8 g/dL (3.5-5.0); Alkaline Phosphatase 78 U/L (39-117); Anion Gap 16 (12-20); Aspartate Amino Transferase 28 U/L (5-37); Blood Urea Nitrogen 22 mg/dL (9-16); Calcium 9.5 mg/dL (8.4-10.2); Carbon Dioxide 23 mmol/L (22-29); Chloride 103 mmol/L (96-108); Estimated Glomerular Filt Rate > 60; Potassium 3.8 mmol/L (3.3-5.1); Sodium 138 mmol/L (135-145); Total Protein 7.8 g/dL (6.5-8.0)
[2025-04-20 09:12] LABS: Microalbum/Creatinine Ratio Ur 9.5 ug/mg cr (<30)
== END 2025-04-20 07:38 | disposition home or self-care (01) ==
LOC: HO.LAB 07:37
PROVIDERS: PCP Family Medicine; Visit Provider Family Medicine
DX: Z00.00 Encounter for general adult medical examination without abnormal findings (principal); I10 Essential (primary) hypertension
CPT/HCPCS: 36415; 80048; 80053; 81003; 82043; 82570

== ENCOUNTER 2025-04-27 08:31 | Outpatient (AMB) | payer OTHER, SELFPAY ==
--- NOTE | 2025-04-27 08:37 | MHC.PC.OV ---
Vital Signs 04/27/25 08:38 Height 5 ft 11 in Weight 228 lb BMI 31.8 BP 128/66 Blood Pressure Location Rt brachial Position Sitting Respiration 14 Pulse 59 Pulse Source Pulse Oximeter Temp 98.1 F Temp Source Oral Pulse Oximetry (%) 96 Oxygen Delivery Method Room Air Intake Visit Reasons: f/u HTN, DM Intake Note: Follow up diabetes, htn Allergies No Known Allergies (No Known Allergies*) Allergy (Verified 04/27/25 08:37) Medication List - Last Reconciled 04/27/25 by Jordi Crandall MD atenolol 50 mg PO DAILY atorvastatin 10 mg PO DAILY blood sugar diagnostic (FreeStyle Lite Strips) glucose monitoring 2 times a day; blood-glucose meter (FreeStyle Lite Meter kit) DX: E11.9, test blood sugar 2 times a day, duration 999 days cane Quad-Cane daily As directed, 999 days/Lifetime FreeStyle Lancets (lancets) 28 gauge topical TID NS hydrochlorothiazide 50 mg PO DAILY ibuprofen 800 mg PO TID PRN 30 days metformin ER 500 mg PO DAILY valsartan 240 mg (1.5 x 160 mg) PO DAILY 30 days Tobacco use date assessed: 04/27/25 Fall risk assessment: No Falls in past year Last assessed Fall Risk: 04/27/25 Dental Screening Dental Screen Date: 09/24/24 HPI f/u HTN, DM HPI Details 65 y/o male presents to f/u hypertension, diabetes. Blood pressure today 128/66, 59p. He is on atenolol 50mg, HCTZ 50mg daily, valsartan 240mg daily. A1c today 04/27/25 6.0%. He is on metformin 500mg daily. Recent kidney functions were good. Urine studies were fine. Reports some ear discomfort - does have some cerumen debris. Also notes some hearing loss. HPI Comments History of Present Illness Details Documentation assistance for Jordi Crandall MD, was provided by Matias Rebolledo,? Tobacco Stripper on 04/27/2025 at 8:54 AM DESTINEY. I, Dr. Crandall, have read, observed, and verified documentation. ? PFSH Medical History Moderate intellectual disabilities Surgical History History of tooth extraction Family History Father HTN (hypertension) Hyperlipidemia Lymphoma Mother HTN (hypertension) Cancer Brother No problems noted. Brother Afib Obesity Heart attack Brother No problems noted. Brother No problems noted. Brother No problems noted. Sister No problems noted. Sister No problems noted. Social History Household Members: Family Household Members Other:: Brother, Marcus Housing: House Alcohol intake: never Patient Tobacco Use Status: Never used Tobacco e-Cigarette/Vaping Use: Never Used Second Hand Smoke Exposure: No service: No Current occupational status: disabled Current occupational exposures/hazards: No Sexual orientation: Unable to collect Gender identity: Unable to collect Cognitive needs: Yes Hearing needs: Yes Vision needs: No Questionnaire Thrive Questionnaire Date Thrive assessed: 09/17/24 I am a: Parent/Caregiver What is your living situation today?: I have a steady place to live Within the past 12 months, did the food you bought not last and you didn't have the money to get more?: Never true Within the past 12 months, did you worry whether your food would run out before you got money to buy more?: Never true Do you have trouble paying for medicines?: No Do you have trouble getting transportation to medical appointments?: No Do you have trouble paying your heating and electricity bill?: No Do you have trouble taking care of your child, family member or friend?: No Do you have trouble with day-to-day activities such as bathing, preparing meals, shopping, managing finances, etc.?: No Are you currently unemployed and looking for a job?: No Are you interested in more education?: No Please select the resources that you would like help with: None Currently or been in a relationship where the following occur: I choose not to answer THRIVE Score: 0 AUDIT C Alcohol Use Questionnaire (AUDIT-C) 1. How often do you have a drink containing alcohol?: Never 3. How often do you have six or more drinks on one occasion?: Never Total Score: 0 SARAI-7 AMB Questionnaire SARAI-7 Date SARAI - 7 assessed: 03/26/25 Source: Developed by Drs. Aniket Liu, Lay Owens, Wilfrido Garza and colleagues, with an educational martín from [employer]. Review of Systems Const Denies chills, Denies fatigue, Denies fever(s), Denies headache(s) and Denies weakness ENT Denies dizziness and Denies headache(s) Card Denies dyspnea Resp Denies cough, Denies dyspnea, Denies wheezing and Denies other (shortness of breath) Musc Denies numbness and Denies tingling Neuro Denies dizziness, Denies headache(s), Denies numbness, Denies tingling and Denies weakness Psych Denies anxiety and Denies depression Endo Denies fatigue Aller/Immun Denies wheezing Physical exam (Primary Care) Vital Signs: Last Vital Signs Temp 98.1 F 04/27/25 08:38 Pulse 59 04/27/25 08:38 Resp 14 04/27/25 08:38 BP 128/66 04/27/25 08:38 Pulse Ox 96 04/27/25 08:38 Oxygen Delivery Method Room Air 04/27/25 08:38 BMI result Body Mass Index 31.8 Tobacco/Smoking Status: Tobacco use Status Tobacco use date assessed 04/27/25 04/27/25 08:38 Patient Tobacco Use Status Never used Tobacco 04/27/25 08:38 e-Cigarette/Vaping Use Never Used 04/27/25 08:38 Thrive Assessment: Date of Thrive Assessment Date Thrive assessed 09/17/24 04/27/25 08:38 Currently or been in a relationship where the following occur: I choose not to answer Const General: well developed; No acute distress Nutritional Appearance: well nourished Orientation/consciousness: patient oriented x3 [facility] Head: Yes normocephalic and Yes atraumatic Eyes General: appearance normal, both eyes and all related structures Pupils: Equal, round and reactive pupils present EOM: EOMs intact bilaterally Resp Effort & Inspection: normal respiratory effort Auscultation: clear to auscultation bilaterally Cardio Rate: regular rate Rhythm: regular rhythm Heart sounds: S1 normal heart sound present, S2 normal heart sound present, no gallops, no murmurs and no rubs Neuro General: patient oriented x3 and gait normal Cranial nerves: Yes Equal, round and reactive pupils present Psych Affect: normal affect Results AMB Hemoglobin A1c AMB Hemoglobin A1c 6.0 % Last Edit by Mary Jo Wolf CMA on 04/27/25 08:56 Results Reviewed Results Reviewed: Laboratory Last Values Hgb A1c (Clinic) 6.0 % (4.0-6.0) 04/27/25 08:46 Coding Level of Care Code Est Pt Level 4 (44801) Diagnoses Essential (primary) hypertension I10 Diabetes type 2, controlled E11.9 Cerumen debris on tympanic membrane H61.20 Hearing loss H91.90 Assessment & Plan Assessment & Plan (1) Essential (primary) hypertension: Code(s): I10 - Essential (primary) hypertension Category: Medical Plan: Blood pressure is well controlled. Goal is less than 140/90 Continue current medication (2) Diabetes type 2, controlled: Code(s): E11.9 - Type 2 diabetes mellitus without complications Category: Medical Plan: A1c 6.0 today. Good control. Goal is less than 7.0% Continue metformin and diabetic diet Eye exam in December showed no diabetic retinopathy. Up-to-date (3) Cerumen debris on tympanic membrane: Code(s): H61.20 - Impacted cerumen, unspecified ear Category: Medical Plan: Copious cerumen at left ear He can use Debrox drops (4) Hearing loss: Code(s): H91.90 - Unspecified hearing loss, unspecified ear Category: Medical Plan: Longstanding and gradually worsening hearing loss [place] [facility] [place] Orders: Orders AMB Hemoglobin A1c Today E11.9 - Type 2 diabetes mellitus without complications Referrals Audiology Referral F71 - Moderate intellectual disabilities, H91.90 - Unspecified hearing loss, unspecified ear
[2025-04-27 08:38] VITALS: BP 128/66; PULSE 59; RESP 14; TEMP 36.7; O2SAT 96; BMI 31.8
== END 2025-04-27 09:06 | disposition home or self-care (01) ==
LOC: HO.HMCFM 08:32
PROVIDERS: PCP Family Medicine; Visit Provider Family Medicine
DX: I10 Essential (primary) hypertension (principal); E11.9 Type 2 diabetes mellitus without complications; H61.22 Impacted cerumen, left ear

== ENCOUNTER → 2025-04-27 08:31 | Outpatient (BNVA) | payer OTHER, SELFPAY | PROVIDERS: PCP Family Medicine; Visit Provider Family Medicine | DX: E11.9 Type 2 diabetes mellitus without complications (principal); I10 Essential (primary) hypertension; H61.22 Impacted cerumen, left ear; F71 Moderate intellectual disabilities | CPT/HCPCS: 83036; 99212 ==